=== PATIENT | female | born 1955 | race Caucasian/White ===

== ENCOUNTER → 2017-02-14 | Outpatient (CLI) | payer MEDICARE, OTHER ==
[2017-02-14 12:54] LABS: Basophils # (A) 0.1 k/uL (0-0.2); Basophils % (A) 1 %; CH 31.7; CHCM 33.3; Eosinophils # (A) 0.3 k/uL (0-0.7); Eosinophils % (A) 3 %; HDW 2.18; HGB 15.5 gm/dL (11.4-16.0); Luc # (Auto) 0.17; Luc % (Auto) 2; Lymphocytes # (A) 3.1 k/uL (1.0-4.8); Lymphocytes % (A) 34 %; MCH 31.6 pg (25.0-35.0); MCV 95.7 fL (80.0-100.0); Mean Platelet Volume 7.4; Monocytes # (A) 0.5 k/uL (0-1.0); Monocytes % (A) 5 %; Neutrophils # (A) 5.1 k/uL (1.3-7.7); Neutrophils % (A) 55 %; RBC 4.91 m/uL (3.80-5.40); RDW 12.5 % (11.5-15.5); WBC 9.2 k/uL (3.8-10.6); WBC (Perox) 8.54
[2017-02-14 13:13] LABS: ALT 27 U/L (9-52); AST 22 U/L (14-36); Alkaline Phosphatase 90 U/L (38-126); Anion Gap 9 mmol/L; Blood Urea Nitrogen 15 mg/dL (7-17); Calcium 9.6 mg/dL (8.4-10.2); Carbon Dioxide 28 mmol/L (22-30); Chloride 106 mmol/L (98-107); Glucose 82 mg/dL (74-99); Non-African American GFR(MDRD) >60 (>60 ml/min/1.73 sqM); Potassium 4.9 mmol/L (3.5-5.1); Sodium 143 mmol/L (137-145); Total Bilirubin 0.3 mg/dL (0.2-1.3); Total Protein 6.6 g/dL (6.3-8.2)
[2017-02-14 14:01] LABS: Vitamin B12 457 pg/mL (239-931)
== END | disposition home or self-care (01) ==
LOC: LABWHC1 11:48
PROVIDERS: ATTEND Psychiatry & Neurology Neurology
DX: E55.9 Vitamin D deficiency, unspecified (principal); G35 Multiple sclerosis
CPT/HCPCS: 36415; 80053; 82306; 82607; 84207; 84439; 84443; 84481; 85025

== ENCOUNTER → 2017-02-24 | Outpatient (CLI) | payer MEDICARE, OTHER ==
--- NOTE | 2017-02-24 13:38 | CT ---
EXAMINATION TYPE: CT brain wo/w con DATE OF EXAM: 02/24/2017 COMPARISON: CT brain March 31, 2015. HISTORY: Multiple Sclerosis flareup. CT DLP: 1941 mGycm Automated exposure control for dose reduction was used. CONTRAST: CT scan of the head is performed without and with IV Contrast, patient injected with 100 mL of Omnipa que 300. FINDINGS: Noncontrast images show no acute intracranial hemorrhage or midline shift.. Ventricles and sulci are within normal limits in size. Areas of vague low attenuation scattered throughout the white matter bilaterally are redemonstrated and felt slightly more prominent than prior exam. Postcontrast images show no definite areas of abnormal enhancement. The globes are intact and the visualized sinu ses are clear. IMPRESSION: Mild to moderate nonspecific white matter changes felt more prominent versus prior exam. No definitiv e enhancing lesions seen. Limitations of CT evaluation versus MRI are noted.
== END | disposition home or self-care (01) ==
LOC: RADCTMAIN 12:45
PROVIDERS: ATTEND Psychiatry & Neurology Neurology
DX: R90.82 White matter disease, unspecified (principal)
CPT/HCPCS: 70470; Q9967

== ENCOUNTER 2017-12-21 09:37 | Day surgery (SDC) | payer MEDICARE ==
[2017-12-18 14:51] VITALS: BMI 25.0
[~2017-12-21 09:37] MED LIST: LACTATED RINGERS 1,000 ML IV SCH
[2017-12-21 10:07] VITALS: RESP 16; TEMP 97.5
[2017-12-21 10:29] LABS: Glucose,Whole Blood 96 mg/dL (75-99)
[2017-12-21] MEDS ORDERED: PROPOFOL 10 MG/ML 20 ML VIAL IV ONE (10:34)
[2017-12-21] MEDS ORDERED: LIDOCAINE 1% INJ 10MG/ML (20 ML MDV) ONE (10:34)
--- NOTE | 2017-12-21 10:53 | P.PCN ---
Date of Procedure: 12/21/17 Procedure(s) Performed: BRIEF HISTORY: Patient is a 62-year-old pleasant white female scheduled for an elective colonoscopy as a part of screening for colorectal neoplasia. PROCEDURE PERFORMED: Colonoscopy. PREOPERATIVE DIAGNOSIS: Screening For colon cancer. IV sedation per Anesthesia. PROCEDURE: After informed consent was obtained, the patient, was brought into the endoscopy unit. IV sedation was administered by Anesthesia under continuous monitoring. Digital rectal examination was normal. Initially the Olympus CF- 160 flexible video colonoscope was then inserted in the rectum, gradually advanced into the cecum without any difficulty. Careful examination was performed as the scope was gradually being withdrawn. Ileocecal valve and the appendiceal orifice were visualized and appeared normal. Prep was excellent. Mucosa of the cecum, ascending colon, transverse colon, descending colon, sigmoid colon, and rectum appeared normal. Retroflexion was performed in the rectum and no lesions were seen. The patient tolerated the procedure well. IMPRESSION: Normal-appearing colon from rectum to cecum with no evidence of colorectal neoplasia. RECOMMENDATIONS: Findings of this examination were discussed with the patient as well as her family. She was advised to have a repeat screening colonoscopy in 10 years.
[2017-12-21 11:20] VITALS: BP 121/73; PULSE 64
== END 2017-12-21 11:29 | disposition home or self-care (01) ==
LOC: ORWHC2ENDO 09:37
PROVIDERS: ATTEND Internal Medicine Gastroenterology
DX: Z12.11 Encounter for screening for malignant neoplasm of colon (principal); G47.33 Obstructive sleep apnea (adult) (pediatric); Z99.89 Dependence on other enabling machines and devices; R56.9 Unspecified convulsions; G35 Multiple sclerosis; R13.10 Dysphagia, unspecified; K21.9 Gastro-esophageal reflux disease without esophagitis; G43.909 Migraine, unspecified, not intractable, without status migrainosus; F32.9 Major depressive disorder, single episode, unspecified; M79.7 Fibromyalgia; Z79.891 Long term (current) use of opiate analgesic; Z79.1 Long term (current) use of non-steroidal anti-inflammatories (NSAID); Z79.899 Other long term (current) drug therapy; F17.210 Nicotine dependence, cigarettes, uncomplicated
CPT/HCPCS: J2001; J2704; G0121

== ENCOUNTER 2018-07-07 07:40 | Emergency (ER) | payer MEDICARE ==
[2018-07-07 07:45] VITALS: BP 139/73; PULSE 72; RESP 18
[2018-07-07] MEDS ORDERED: HYDROcodone/APAP 10-325MG 1 EACH TAB PO ONE (08:02)
[2018-07-07 08:05] VITALS: TEMP 97.6
--- NOTE | 2018-07-07 08:05 | ED ---
Fall HPI - General Chief Complaint: Fall Stated Complaint: FALL, POSS RT SHOULDER DISLOCATION Time Seen by Provider: 07/07/18 07:57 Source: patient, RN notes reviewed Mode of arrival: wheelchair Limitations: no limitations - History of Present Illness Initial Comments: This a 63-year-old female presents emergency Department chief complaint right shoulder pain. Patient states that she was walking towards her back door and states that there is a ledge and states that she caught her left foot on the ledge falling forward primarily striking her right shoulder. She states she did fall set in her left knee but has no pain. She states she has falls a lot secondary to her MS and states that she has chronic weakness on the left side. Patient states she had a recent right wrist fracture and which she is an S1 4. Patient denies any head, neck injury no loss conscious. Patient states that her only pain right now a right shoulder. - Related Data Home Medications Medication Instructions Recorded Confirmed rOPINIRole HCL [Requip] 1 mg PO HS 02/14/17 12/21/17 Cetirizine HCl [Zyrtec] 5 mg PO DAILY PRN 02/15/17 12/18/17 Cholecalciferol [Vitamin D3] 2,000 units PO DAILY 02/15/17 12/18/17 Naproxen 500 mg PO BID PRN 02/15/17 12/21/17 Gabapentin 800 mg PO TID 06/22/17 12/18/17 Multivitamins, Thera [Multivitamin 1 tab PO DAILY 06/22/17 12/18/17 (formulary)] Venlafaxine HCl [Effexor XR] 75 mg PO DAILY 06/22/17 12/18/17 Venlafaxine HCl [Effexor XR] 150 mg PO DAILY 06/22/17 12/18/17 Fiorcet(Dose Unknown) 1 tab PO QID PRN 12/18/17 12/21/17 Hydrocodone/Acetaminophen [Prichard 1 tab PO QID PRN 12/18/17 12/18/17 7.5-325] Meclizine [Antivert] 12.5 mg PO TID PRN 12/18/17 12/21/17 Allergies Allergy/AdvReac Type Severity Reaction Status Date / Time No Known Allergies Allergy Verified 07/07/18 07:45 Review of Systems ROS Statement: Those systems with pertinent positive or pertinent negative responses have been documented in the HPI. ROS Other: All systems not noted in ROS Statement are negative. Past Medical History Past Medical History: Fibromyalgia, GERD/Reflux, Neurologic Disorder, Seizure Disorder, Sleep Apnea/CPAP/BIPAP Additional Past Medical History / Comment(s): Multiple sclerosis, some dysphagia at times, incontinent or urine/bowels at times, generalized nerve pain , migraines, spinal stenosis,dx colitis at age 15 yrs, fractured ribs and T12 fracture 2 yrs ago from falling, frequent falls, hypoglycemia. 4 arm cane and wheelchair, no cpap used, willy leos History of Any Multi-Drug Resistant Organisms: None Reported Past Surgical History: Appendectomy, Back Surgery, Cholecystectomy, Hysterectomy Additional Past Surgical History / Comment(s): spinal cord stimulator surgically placed in December 2012, laproscopic surgery for fibroids, Past Anesthesia/Blood Transfusion Reactions: Previous Problems w/ Anesthesia, Motion Sickness Additional Past Anesthesia/Blood Transfusion Reaction / Comment(s): "hard to wake up and my blood pressure gets very low" Past Psychological History: Depression Smoking Status: Current every day smoker Past Alcohol Use History: Rare Past Drug Use History: None Reported - Past Family History Father Family Medical History: Cancer Brother(s) Family Medical History: Cancer General Exam Limitations: no limitations General appearance: alert, in no apparent distress Head exam: Present: atraumatic, normocephalic, normal inspection Eye exam: Present: normal appearance, PERRL, EOMI. Absent: scleral icterus, conjunctival injection, periorbital swelling ENT exam: Present: normal exam, normal oropharynx, mucous membranes moist Neck exam: Present: normal inspection, full ROM. Absent: tenderness, meningismus, lymphadenopathy Respiratory exam: Present: normal lung sounds bilaterally. Absent: respiratory distress, wheezes, rales, rhonchi, stridor, chest wall tenderness Cardiovascular Exam: Present: regular rate, normal rhythm, normal heart sounds. Absent: systolic murmur, diastolic murmur, rubs, gallop, clicks Extremities exam: Present: other (Right shoulder patient has diffuse tenderness no obvious deformity no ecchymosis neurovascular intact limited range of motion secondary to pain) Psychiatric exam: Present: normal affect, normal mood Skin exam: Present: warm, dry, intact, normal color. Absent: rash Course Vital Signs 07/07/18 07:41 Temperature 97.6 F Pulse Rate 72 Respiratory 18 Rate Blood Pressure 139/73 O2 Sat by Pulse 98 Oximetry - Reevaluation(s) Reevaluation #1: 07/07/18 08:16 Patient updated on x-ray results was offered IM pain meds patient declines oral was ordered though patient states that she had attempted pain medications morning. Medical Decision Making - Medical Decision Making 63-year-old female presents emergency from for right shoulder injury. Patient has a fracture of the humeral head. Patient we sling and follow-up with Dr. Patel as he currently sees her as a patient. Return parameters were discussed. Neurovascular intact. Disposition Clinical Impression: Fall, Right humeral fracture Disposition: HOME SELF-CARE Condition: Stable Instructions: Proximal Humerus Fracture (ED) Additional Instructions: Please return to the Emergency Department if symptoms worsen or any other concerns. Is patient prescribed a controlled substance at d/c from ED?: No Referrals: Saji Mclain DO [Primary Care Provider] - 1-2 days Saji Patel DO [Doctor of Osteopathic Medicine] - 1-2 days Time of Disposition: 08:18
--- NOTE | 2018-07-07 08:21 | XR ---
EXAMINATION TYPE: XR shoulder complete RT , 3 VIEWS DATE OF EXAM ORDERED: 07/07/2018 HISTORY: Pain. COMPARISON: None. FINDINGS: There is a mildly displaced fracture the greater tuberosity. There appears to be an anteri or dislocation. There are hypertrophic changes in the right AC joint. A pain stimulator projects over the dorsal spine. IMPRESSION: MILDLY DISPLACED FRACTURE DISLOCATION OF THE RIGHT SHOULDER. CODE A: INITIAL ENCOUNTER FOR CLOSED FRACTURE.
[2018-07-07] MEDS ORDERED: MORPHINE SULFATE 4 MG/ML SYRINGE IM STA (08:27)
== END 2018-07-07 08:40 | disposition home or self-care (01) ==
LOC: EC 07:40
DX: S42.91XA Fracture of right shoulder girdle, part unspecified, initial encounter for closed fracture (principal); G47.30 Sleep apnea, unspecified; F32.9 Major depressive disorder, single episode, unspecified; F17.200 Nicotine dependence, unspecified, uncomplicated; Z79.899 Other long term (current) drug therapy; W18.09XA Striking against other object with subsequent fall, initial encounter; Y93.01 Activity, walking, marching and hiking
CPT/HCPCS: 73030; 99283; 96372; L3670; J2270

== ENCOUNTER → 2019-01-28 | Outpatient (CLI) | payer MEDICARE ==
[2019-01-28 17:16] LABS: Blood Urea Nitrogen 16 mg/dL (7-17)
--- NOTE | 2019-01-28 20:20 | CT ---
EXAMINATION TYPE: CT brain wo/w con DATE OF EXAM: 01/28/2019 COMPARISON: 06/22/2017 HISTORY: 64-year-old female with headache and history of multiple sclerosis TECHNIQUE: Examination was done in axial plane before and after administration of 100 mL Isovue-300 intravenous contrast. Coronal and sagittal reconstructions performed. CT DLP: 2112.71 mGycm Automated exposure control for dose reduction was used. FINDINGS: There is no evidence of acute intracranial hemorrhage, acute ischemic changes, mass, mass-effect, or extra-axial fluid collection. There is no effacement of cerebral sulci or basal subarachnoid cister ns. There is no hydrocephalus. There is no midline shift. Young-white matter distinction is preserv ed. Mild subcortical and periventricular white matter hypodensities are unchanged. No enhancing intracran ial lesions are identified. Dural venous sinuses are patent. Paranasal sinuses and mastoid air cells well pneumatized. Orbits and globes are intact. IMPRESSION: Stable mild subcortical and periventricular white matter hypodensities likely in keeping with the pat ient's MS. If the patient is able, MRI would provide more sensitive evaluation. No enhancing intracra nial lesions or acute intracranial abnormality seen.
--- NOTE | 2019-01-28 20:27 | CT ---
EXAMINATION TYPE: CT cervical spine wo/w con DATE OF EXAM: 01/28/2019 COMPARISON: 04/07/2014 HISTORY: 59-year-old female headache, cervicalgia, history of multiple sclerosis TECHNIQUE: Contiguous axial scanning of the cervical spine performed without and with IV Contrast, pa tient injected with 100 mL of Isovue 300. Coronal/sagittal reconstructions performed. CT DLP: 733.15 mGycm Automated exposure control for dose reduction was used. FINDINGS: The craniocervical junction abnormality, predental space widening, or prevertebral soft tissue swelli ng. Grade 1 anterolisthesis at C4-C5 and C6-C7 with scattered facet and uncovertebral joint arthropathy. Anterolistheses are new/progressed from 2013. Moderate degenerative disc disease at C5-C6 with loss of disc height. Disc osteophyte complex at C5-C6 causes similar moderate narrowing of the spinal canal. At C3-C4, there is mild bilateral neuroforaminal narrowing. At C4-C5, there is [id number] right neuroforaminal narrowing. At C5-C6, there is moderate bilateral neural foraminal stenosis. At C6-C7, there is mild to moderate left and mild right neuroforaminal stenosis. At C7-T1, there is moderate right neuroforaminal stenosis. IMPRESSION: 1. MODERATE DEGENERATIVE DISC DISEASE AT C5-C6 WITH DISC OSTEOPHYTE COMPLEX CAUSING SIMILAR MODERATE SPINAL CANAL STENOSIS AT THIS LEVEL. 2. MULTILEVEL UNCOVERTEBRAL JOINT AND FACET ARTHROPATHY. THERE ARE DEGENERATIVE GRADE 1 ANTEROLISTHES ES AT C4-C5 AND C6-C7, NEW/PROGRESSED FROM 2013. 3. VARIABLE MILD AND MODERATE NEURAL FORAMINAL STENOSES OUTLINED ABOVE.
== END | disposition home or self-care (01) ==
LOC: RADCTMAIN 16:34
PROVIDERS: ATTEND Psychiatry & Neurology Neurology
DX: G35 Multiple sclerosis (principal); R90.82 White matter disease, unspecified; M48.02 Spinal stenosis, cervical region; M43.12 Spondylolisthesis, cervical region; M50.322 Other cervical disc degeneration at C5-C6 level; M46.92 Unspecified inflammatory spondylopathy, cervical region
CPT/HCPCS: 82565; 84520; 72127; 70470; 36415; Q9967

== ENCOUNTER → 2019-04-12 | Outpatient (CLI) | payer MEDICARE ==
--- NOTE | 2019-04-12 13:22 | CT ---
EXAMINATION TYPE: CT lumbar spine wo con DATE OF EXAM: 04/12/2019 COMPARISON: None HISTORY: Lumbago Unenhanced CT of the lumbar spine was performed. Bone and soft tissue window settings are submitted as well as coronal and sagittal reconstructions. L1-L2: Normal disc space height. No disc herniation protrusion or central stenosis. No facet joint arthropathy. No evidence for foraminal encroachment. L2-L3: Normal disc space height. No disc herniation protrusion or central stenosis. No facet joint arthropathy. No evidence for foraminal encroachment. L3-L4: Normal disc space height. No disc herniation protrusion or central stenosis. No facet joint arthropathy. No evidence for foraminal encroachment. L4-L5: Severe degenerative disc space narrowing with vacuum disc. Grade 1 anterolisthesis L4 and L5 m easuring 4 mm. Posterior disc bulge with moderate central stenosis. Bilateral foraminal encroachment noted. L5-S1: Moderate degenerative disc space narrowing. Posterior disc bulge. No evidence for herniation o r protrusion. No central stenosis. Suspect right lateral recess stenosis. No paraspinal masses are identified. Lumbar segments are free of fracture. IMPRESSION: 1. Degenerative disc disease L4-5 and L5-S1. 2. Central stenosis L4-5. Right lateral recess stenosis L5-S1.
== END | disposition home or self-care (01) ==
LOC: RADCTMAIN 12:50
PROVIDERS: ATTEND Psychiatry & Neurology Neurology
DX: M48.07 Spinal stenosis, lumbosacral region (principal); M48.061 Spinal stenosis, lumbar region without neurogenic claudication; M51.36 Other intervertebral disc degeneration, lumbar region; M51.37 Other intervertebral disc degeneration, lumbosacral region
CPT/HCPCS: 72131

== ENCOUNTER → 2019-05-07 | Outpatient (CLI) | payer MEDICARE ==
--- NOTE | 2019-05-09 09:48 | MM ---
Reason for exam: screening (asymptomatic). History: Patient is postmenopausal. Excisional biopsy of the left breast, 2003. Physical Findings: A clinical breast exam by your physician is recommended on an annual basis and results should be correlated with mammographic findings. MG 3D Screening Mammo W/Cad Bilateral CC and MLO view(s) were taken. No prior studies available for comparison. There are scattered fibroglandular densities. There is no discrete abnormality. ASSESSMENT: Benign, BI-RAD 2 RECOMMENDATION: Routine screening mammogram of both breasts in 1 year.
--- NOTE | 2019-05-10 17:31 | BD ---
EXAMINATION TYPE: Axial Bone Density DATE OF EXAM: 05/07/2019 COMPARISON: NONE CLINICAL HISTORY: screening Height: 5'4 Weight: 154 FRAX RISK QUESTIONS: History of Fracture in Adulthood: y Secondary Osteoporosis: 3. Menopause before 45: y Current Tobacco Use: y RISK FACTORS HISTORY OF: Active: n Postmenopausal woman: y Frequent falls: y Poor Health: y MEDICATIONS: Additional Medications: neuro tin, MS meds Additional History: pt has MS EXAM MEASUREMENTS: Bone mineral densitometry was performed using the [employer] SPINE System. Bone mineral density as measured about the Lumbar spine is: ----- L1-L4(G/cm2): 1.065 T Score Values are as follows: ----- L2: -2.0 ----- L3: -0.2 ----- L4: -0.3 ----- L1-L4: -1.0 Bone mineral density about the R hip (g/cm2): 0.704 Bone mineral density about the L hip (g/cm2): 0.638 T Score values are as follows: -----R Neck: -2.4 -----L Neck: -2.9 -----R Total: -1.7 -----L Total: -1.7 IMPRESSION: Osteoporosis (T Score less than -2.5). There is increased fracture risk and therapy is usually indicated based on age. Re-Screen 1-2 years. NOTE: T-SCORE=SD OF THE YOUNG ADULT MEAN.
== END | disposition home or self-care (01) ==
LOC: RADMAMWWP 15:52
PROVIDERS: ATTEND Family Medicine
DX: Z12.31 Encounter for screening mammogram for malignant neoplasm of breast (principal); M81.0 Age-related osteoporosis without current pathological fracture
CPT/HCPCS: 77063; 77067; 77080

== ENCOUNTER → 2020-01-16 | Outpatient (CLI) | payer MEDICARE, OTHER ==
--- NOTE | 2020-01-16 12:55 | XR ---
EXAMINATION TYPE: XR lumbosacral spine min 4V DATE OF EXAM: 01/16/2020 CLINICAL HISTORY: Low back pain, repeated falls. TECHNIQUE: Frontal, lateral, and oblique images of the lumbar spine are obtained. COMPARISON: CT lumbar spine April 12, 2019 FINDINGS: There are 5 lumbar type vertebral bodies redemonstrated persistent slight dextroconvex sco liosis centered L5 level. Persistent grade 1 anterolisthesis L4 on L5 with moderate to severe disc sp fide narrowing along with vacuum disc phenomenon and endplate sclerosis anteriorly. Some prominent Anshu morl nodes involving the anterior superior L2 and L3 endplates. Mild height loss involving superior T 12 endplate redemonstrated. Facet arthropathy lower lumbar spine. Oblique images within normal limits though lower lumbar spine obscured by overlying device on one projection. Cholecystectomy clips are redemonstrated. IMPRESSION: As above
== END | disposition home or self-care (01) ==
LOC: RADXRYALE 11:36
PROVIDERS: ATTEND Physician Assistant Medical
DX: M43.16 Spondylolisthesis, lumbar region (principal); M99.73 Connective tissue and disc stenosis of intervertebral foramina of lumbar region; M46.96 Unspecified inflammatory spondylopathy, lumbar region; M41.86 Other forms of scoliosis, lumbar region; Z96.89 Presence of other specified functional implants
CPT/HCPCS: 72110

== ENCOUNTER → 2020-01-20 | Outpatient (CLI) | payer MEDICARE, OTHER ==
--- NOTE | 2020-01-20 13:25 | US ---
EXAMINATION TYPE: US venous doppler duplex LE DATE OF EXAM: 01/20/2020 12:53 PM COMPARISON: NONE CLINICAL HISTORY: R60.9 edema, R06.02 shortness of breath. Edema bilateral legs SIDE PERFORMED: Bilateral TECHNIQUE: The lower extremity deep venous system is examined utilizing real time linear array sonog gigi with graded compression, doppler sonography and color-flow sonography. VESSELS IMAGED: External Iliac Vein (EIV) Common Femoral Vein Deep Femoral Vein Greater Saphenous Vein * Femoral Vein Popliteal Vein Small Saphenous Vein * Proximal Calf Veins (* superficial vessels) Grayscale, color doppler, spectral doppler imaging performed of the deep veins of the lower extremiti es. There is normal flow, compressibility, vascular waveforms. Right Leg: No evidence of DVT Left Leg: No evidence of DVT IMPRESSION: No sonographic evidence of deep venous thrombosis in the visualized bilateral lower extr emities.
--- NOTE | 2020-01-21 09:41 | ECHOF ---
Referral Reason:R60.9 edema, R06.02 shortness of breath MEASUREMENTS -------- HEIGHT: 165.1 cm WEIGHT: 72.6 kg BP: 140/80 RVIDd: 3.1 cm (< 3.3) IVSd: 1.1 cm (0.6 - 1.1) LVIDd: 3.5 cm (3.9 - 5.3) LVPWd: 1.0 cm (0.6 - 1.1) IVSs: 1.6 cm LVIDs: 2.4 cm LVPWs: 1.4 cm LA Diam: 3.1 cm (2.7 - 3.8) LAESV Index (A-L): 19.29 ml/m Ao Diam: 2.6 cm (2.0 - 3.7) AV Cusp: 2.1 cm (1.5 - 2.6) MV EXCURSION: 14.273 mm (> 18.000) MV EF SLOPE: 99 mm/s (70 - 150) EPSS: 0.6 cm MV E Toni: 0.83 m/s MV DecT: 218 ms MV A Toni: 0.69 m/s MV E/A Ratio: 1.21 TAPSE: 14.64 mm FINDINGS -------- Sinus rhythm. This was a technically good study. The left ventricular size is normal. There is borderline concentric left ventricular hypertrophy. Overall left ventricular systolic function is normal with, an EF between 60 - 65 %. The right ventricle is normal in size. The right atrium is normal in size. Interatrial and interventricular septum intact. The aortic valve is trileaflet and appears structurally normal. There is trace mitral regurgitation. Trace tricuspid regurgitation present. Trace/mild (physiologic) pulmonic regurgitation. The aortic root size is normal. Normal inferior vena cava with normal inspiratory collapse consistent with estimated right atrial pre ssure of 5 mmHg. There is no pericardial effusion. CONCLUSIONS -------- 1. Sinus rhythm. 2. This was a technically good study. 3. The left ventricular size is normal. 4. There is borderline concentric left ventricular hypertrophy. 5. Overall left ventricular systolic function is normal with, an EF between 60 - 65 %. 6. The right ventricle is normal in size. 7. The right atrium is normal in size. 8. Interatrial and interventricular septum intact. 9. The aortic valve is trileaflet and appears structurally normal. 10. There is trace mitral regurgitation. 11. Trace tricuspid regurgitation present. 12. Trace/mild (physiologic) pulmonic regurgitation. 13. The aortic root size is normal. 14. Normal inferior vena cava with normal inspiratory collapse consistent with estimated right atrial pressure of 5 mmHg. 15. There is no pericardial effusion. W[employer]ING LOOM SETTER: Christine Elizalde RDCS
== END | disposition home or self-care (01) ==
LOC: RADUSWWP 11:24
PROVIDERS: ATTEND Physician Assistant Medical
DX: R60.9 Edema, unspecified (principal); I09.89 Other specified rheumatic heart diseases
CPT/HCPCS: 93306; 93970

== ENCOUNTER → 2022-10-12 | Outpatient (CLI) | payer MEDICARE ==
--- NOTE | 2022-10-12 14:13 | BD ---
EXAMINATION TYPE: Axial Bone Density DATE OF EXAM: 10/12/2022 COMPARISON: 05.07.2019 CLINICAL HISTORY: 67 years year old Female. ICD-10 CODE: [id number] oth disorder of bone density/structu re Height: 62 Weight: 173 FRAX RISK QUESTIONS: Family History (Parent hip fracture): YES Glucocorticoids (More than 3mos): YES (Ex: prednisone, prednisolone, methylprednisolone, dexamethasone, and hydrocortisone). History of Fracture in Adulthood: YES Secondary Osteoporosis: YES 3. Menopause before 45: YES Rheumatoid Arthritis: YES Current Tobacco Use: YES RISK FACTORS HISTORY OF: RT HAND, AND RT SHOULDR AN ADULT Surgery to Spine FOR NERVE, IMPLANT WITH WIRES, PT HAS MS Family History of Osteoporosis: YES, WITH FXs Active: NO....IN W/C Postmenopausal woman: YES, AT 41 YRS OLD, TOTAL HYST Take estrogen and/or progesterone medications: YES, SHORT TIME IN THE PAST Lost more than 2 inches in height since high school: YES Frequent falls: YES Poor Health: YES Hyperparathyroidism: NO Adrenal Insufficiency: NO MEDICATIONS: Prednisone or other steroids: YES How Long: MANY YRS Osteoporosis Medications: TRIED IN THE PAST Additional Medications: EFFEXOR, XANAX, REFLUX MEDS, CHOLESTEROL MEDS, PAIN MEDS, VIT D AND CALCIUM.. .MORPHINE IMPLANT PUMP Additional History: MS, ANXIETY, CHOLESTEROL, POOR HEALTH, GERD, CHRONIC PAIN, EXAM MEASUREMENTS: Bone mineral densitometry was performed using the [employer] System. Bone mineral density about the R hip (g/cm2): 0.839 Bone mineral density about the L hip (g/cm2): 0.825 T Score values are as follows: -----R Neck: -1.8 -----L Neck: -2.9 -----R Total: -1.3 -----L Total: -1.4 Bone mineral density has: Increased 5.2% SINCE: 05.07.2019 Bone mineral density about the L Wrist (g/cm2): 0.420 T Score values are as follows: -----Dist. R+U: -4.2 -----Prox. R+U: -2.8 -----Radius total: -4.3 Bone mineral density FIRST FOREARM SCAN FRAX%s: The graph provided illustrates a 59.5% for a major osteoporotic fx and a 33.6% for the hips p robability for fx in 10 years time. IMPRESSION: Osteoporosis (T Score less than -2.5). There is increased fracture risk and therapy is usually indicated based on age. Re-Screen 1-2 years. NOTE: T-SCORE=SD OF THE YOUNG ADULT MEAN.
== END | disposition home or self-care (01) ==
LOC: RADBDWWP 10:07
PROVIDERS: ATTEND Family Medicine
DX: M81.0 Age-related osteoporosis without current pathological fracture (principal); M85.89 Other specified disorders of bone density and structure, multiple sites; Z78.0 Asymptomatic menopausal state
CPT/HCPCS: 77080

== ENCOUNTER → 2022-10-12 | Outpatient (CLI) | payer MEDICARE ==
--- NOTE | 2022-10-12 15:44 | FL ---
EXAMINATION TYPE: FL barium swallow w video DATE OF EXAM: 10/12/2022 COMPARISON: NONE HISTORY: Dysphasia TECHNIQUE: Fluoroscopy. FINDINGS: Fluoroscopic guidance was provided for the procedure performed in conjunction with the [facility] pathology department. Please see complete report forthcoming from the Speech Pathology departmen t. Various consistencies from thin liquid to solids were administered. Fluoroscopy time not recorded Number of images: 0. No aspiration or penetration was evident. No significant pooling was observed in the vallecula. There was normal propulsion of the bolus. IMPRESSION: 1. Unremarkable modified barium swallow.
== END | disposition home or self-care (01) ==
LOC: RADFLMAIN 10:35
PROVIDERS: ATTEND Psychiatry & Neurology Neurology
DX: R13.10 Dysphagia, unspecified (principal)
CPT/HCPCS: 74230

== ENCOUNTER → 2023-06-21 | Day surgery (SDC) | payer MEDICARE ==
[2023-06-19 09:55] VITALS: BMI 29.1
[~2023-06-21] MED LIST changes: +LIDOCAINE 2% INJ 20 MG/ML (2 ML VIAL) ONE; +PROPOFOL 10 MG/ML 20 ML VIAL IV ONE
[2023-06-21 08:00] VITALS: RESP 16; TEMP 97.1
[2023-06-21 08:15] LABS: Glucose,Whole Blood 108 mg/dL (70-110)
--- NOTE | 2023-06-21 09:25 | P.PCN ---
Date of Procedure: 06/21/23 Procedure(s) Performed: BRIEF HISTORY: Patient is a 68-year-old, pleasant, white female scheduled for an upper endoscopy as a part of evaluation of GERD and intermittent dysphagia to solids.. PROCEDURE PERFORMED: Esophagogastroduodenoscopy. PREOPERATIVE DIAGNOSIS: GERD and intermittent dysphagia to solids. IV sedation per anesthesia. PROCEDURE: After informed consent was obtained, the patient was brought into the endoscopy unit. IV sedation was administered by Anesthesia under continuous monitoring. Initially the Olympus GIF-140 video endoscope was inserted into the mouth. Esophagus intubated without any difficulty. It was gradually advanced into the stomach and duodenum and carefully examined. The bulb and the second part of the duodenum appeared normal. The scope at this time was withdrawn to the stomach, adequately insufflated with air, and upon careful examination, mucosa of the antrum, body, cardia and the fundus appeared normal. There was moderate amount of retained solid food in the stomach suggestive of gastroparesis. There was no gastric outlet obstruction. The scope was then withdrawn into the esophagus. Small to moderate size hiatal hernia noted. The GE junction was located at 32 cm from the incisors. The esophagus appeared normal. There were no erosions or ulcerations seen, no evidence of esophageal stricture and the patient tolerated the procedure well. IMPRESSION: 1. Small hiatal hernia, and but no evidence of esophageal stricture. 2. With retained food in the stomach suggestive of gastroparesis. RECOMMENDATIONS: The findings of this examination were discussed with the patient as well as her family. She was advised to increase omeprazole to 20 mg twice daily and follow antireflux measures. Recommend small frequent meals. Advised to follow up in office if she has worsening symptoms..
[2023-06-21 09:46] VITALS: BP 114/70; PULSE 72
== END ==
LOC: ORWHC2ENDO 07:37
PROVIDERS: ATTEND Internal Medicine Gastroenterology
DX: K44.9 Diaphragmatic hernia without obstruction or gangrene (principal); K21.9 Gastro-esophageal reflux disease without esophagitis; G35 Multiple sclerosis; F17.210 Nicotine dependence, cigarettes, uncomplicated; G40.909 Epilepsy, unspecified, not intractable, without status epilepticus; Z86.711 Personal history of pulmonary embolism; Z79.83 Long term (current) use of bisphosphonates; Z79.01 Long term (current) use of anticoagulants; Z90.49 Acquired absence of other specified parts of digestive tract; Z98.890 Other specified postprocedural states; Z79.899 Other long term (current) drug therapy
CPT/HCPCS: 43235; J2704; J2001

== ENCOUNTER 2024-07-07 07:21 | Observation (INO) | payer MEDICARE ==
--- NOTE | 2024-07-07 07:51 | ED ---
General Adult HPI - General Source: patient, RN notes reviewed Mode of arrival: ambulatory Limitations: no limitations <Rachell Mar - Last Filed: 07/07/24 07:50> <Brielle Marcus - Last Filed: 07/07/24 17:16> - General Chief complaint: Shortness of Breath Stated complaint: bleeding from throat Time Seen by Provider: 07/07/24 07:38 - History of Present Illness Initial comments: 69-year-old female with history of pulmonary embolism on Xarelto presents emergency department chief complaint of "spitting up blood "that started this morning. She denies hematemesis or hemoptysis. States that she has been having a worsening cough for the past few months because she has coughed up a chicken bone. She is also experiencing chest pain and shortness of breath. (Rachell Mar) 69-year-old female presents emergency department reporting hemoptysis. States that for the past 3 weeks she has had a cough with blood streaking. She reports that it started after she coughed up a chicken bone that she choked on. She admits to shortness of breath. Patient does take Xarelto for history of PE. S he was seen in [facility] emergency department 2 weeks ago for this complaint. She was told that everything was normal. She continues to have the symptoms. states this morning she coughed up a fairly large blood clot. She admits to bilateral calf pain and swelling. Denies chest pain. Patient does not wear oxygen at home. Found to be hypoxic in the emergency department at 83%. She denies fevers. Does admit to a history of peptic ulcers but states that this was 40 years ago. She denies any black or bloody stools. Admits to constipation. No vomiting. No epistaxis. No other alleviating, precipitating modifying factors. HPI is notably different from what was reported during the quick evaluation of the patient completed by the midlevel provider (Brielle Marcus) - Related Data Home Medications Medication Instructions Recorded Confirmed Multivitamins, Thera [Multivitamin 1 tab PO DAILY 06/22/17 07/07/24 (formulary)] Dalfampridine [Dalfampridine ER] 10 mg PO Q12H 06/19/23 07/07/24 Fenofibrate,Micronized 134 mg PO DAILY 06/19/23 07/07/24 [Fenofibrate] Furosemide [Lasix] 20 - 40 mg PO DAILY PRN 06/19/23 07/07/24 Rivaroxaban [Xarelto] 20 mg PO W/SUPPER 06/19/23 07/07/24 Albuterol Inhaler [Ventolin Hfa 2 puff INHALATION RT-Q6H PRN 07/07/24 07/07/24 Inhaler] Amitriptyline HCl [Elavil] 25 mg PO HS 07/07/24 07/07/24 Butalb/APAP/Caff 50-325-40Mg 1 tab PO Q8H PRN 07/07/24 07/07/24 [Fioricet 50-325-40] Esomeprazole Magnesium [NexIUM] 40 mg PO BID 07/07/24 07/07/24 Gabapentin 300 mg PO TID 07/07/24 07/07/24 Ibuprofen [Motrin] 800 mg PO Q8H PRN 07/07/24 07/07/24 Metoclopramide [Reglan] 5 mg PO AC-TID 07/07/24 07/07/24 Nicotine 21Mg/24Hr Patch [Habitrol] 1 patch TRANSDERM DAILY 07/07/24 07/07/24 Ondansetron [Zofran] 4 - 8 mg PO Q8H PRN 07/07/24 07/07/24 Patient Own Pump 0 bag 07/07/24 rOPINIRole HCL 4 mg PO TID 07/07/24 07/07/24 traMADol HCL 50 mg PO BID PRN 07/07/24 07/07/24 Allergies Allergy/AdvReac Type Severity Reaction Status Date / Time No Known Allergies Allergy Verified 07/07/24 11:17 Review of Systems ROS Other: All systems not noted in ROS Statement are negative. <Rachell Mar - Last Filed: 07/07/24 07:50> ROS Other: All systems not noted in ROS Statement are negative. <Brielle Marcus - Last Filed: 07/07/24 17:16> ROS Statement: Those systems with pertinent positive or pertinent negative responses have been documented in the HPI. Past Medical History Past Medical History: Fibromyalgia, GERD/Reflux, Neurologic Disorder, Pulmonary Embolus (PE), Seizure Disorder, Sleep Apnea/CPAP/BIPAP Additional Past Medical History / Comment(s): Multiple sclerosis, some dysphagia at times, incontinent or urine/bowels at times, generalized nerve pain, migraines, spinal stenosis, dx colitis at age 15 yrs, frequent falls, hypog lycemia, chronic fatigue syndrome, last seizure around 2019 History of Any Multi-Drug Resistant Organisms: None Reported Past Surgical History: Appendectomy, Back Surgery, Cholecystectomy, Hysterectomy Additional Past Surgical History / Comment(s): spinal cord stimulator surgically placed in December 2012, morphine pain pump placed, laparoscopic surgery for fibroids Past Anesthesia/Blood Transfusion Reactions: Previous Problems w/ Anesthesia, Motion Sickness Additional Past Anesthesia/Blood Transfusion Reaction / Comment(s): "hard to wake up and my blood pressure gets very low" Past Psychological History: Depression Smoking Status: Current every day smoker Past Alcohol Use History: Rare Past Drug Use History: None Reported - Past Family History Father Family Medical History: Cancer Brother(s) Family Medical History: Cancer <Rachell Mar - Last Filed: 07/07/24 07:50> General Exam Limitations: no limitations <Rachell Mar - Last Filed: 07/07/24 07:50> General appearance: alert, in no apparent distress Head exam: Present: atraumatic, normocephalic, normal inspection Eye exam: Present: normal appearance, PERRL, EOMI. Absent: scleral icterus, conjunctival injection, periorbital swelling ENT exam: Present: normal exam, mucous membranes moist Neck exam: Present: normal inspection. Absent: tenderness, meningismus, lymphadenopathy Respiratory exam: Present: normal lung sounds bilaterally. Absent: respiratory distress, wheezes, rales, rhonchi, stridor Cardiovascular Exam: Present: regular rate, normal rhythm, normal heart sounds. Absent: systolic murmur, diastolic murmur, rubs, gallop, clicks GI/Abdominal exam: Present: soft, normal bowel sounds. Absent: distended, tenderness, guarding, rebound, rigid Extremities exam: Present: normal inspection, full ROM, normal capillary refill. Absent: tenderness, pedal edema, joint swelling, calf tenderness Back exam: Present: normal inspection Neurological exam: Present: alert, oriented X3, CN II-XII intact Psychiatric exam: Present: normal affect, normal mood Skin exam: Present: warm, dry, intact, normal color. Absent: rash <Damer,Brielle A - Last Filed: 07/07/24 17:16> - General Exam Comments Initial Comments: Visual Physical Exam Vital signs reviewed General: Well-appearing, nontoxic, no acute distress. Head: Normocephalic, atraumatic Eyes: PERRLA, EOMI ENT: Airway patent Chest: Nonlabored breathing Skin: No visual rash, normal skin tone Neuro: Alert and oriented 3 Musculoskeletal: No gross abnormalities (Rachell Mar) Course Vital Signs 07/07/24 07/07/24 07/07/24 07:24 10:25 12:11 Temperature 98.2 F Pulse Rate 99 91 Respiratory 18 16 18 Rate Blood Pressure 135/60 119/53 O2 Sat by Pulse 94 L 98 Oximetry 07/07/24 07/07/24 15:57 16:08 Temperature Pulse Rate 83 84 Respiratory Rate Blood Pressure O2 Sat by Pulse Oximetry Medical Decision Making <Rachell Mar - Last Filed: 07/07/24 07:50> - Lab Data Result diagrams: 07/07/24 08:39 07/07/24 08:39 <Brielle Marcus - Last Filed: 07/07/24 17:16> - Medical Decision Making I completed the quick note portion of this chart signed Rachell Mar PA-C (Rachell Mar) Was pt. sent in by a medical professional or institution ([facility], [employer] T[employer]ER [employer]IVER, urgent care, hospital, or shelter...) When possible be specific @ -No Did you speak to anyone other than the patient for history (EMS, parent, family, police, friend...)? What history was obtained from this source @ -With the patient's for history Did you review nursing and triage notes (agree or disagree)? Why? @ -I reviewed and agree with nursing and triage notes Were old charts reviewed (outside hosp., previous admission, EMS record, old EKG, old radiological studies, urgent care reports/EKG's, shelter records)? Report findings @ -No old charts were reviewed Differential Diagnosis (chest pain, altered mental status, abdominal pain women, abdominal pain men, vaginal bleeding, weakness, fever, dyspnea, syncope, head ache, dizziness, GI bleed, back pain, seizure, CVA, palpatations, mental health, musculoskeletal)? @ -Differential Dyspnea: Coronary syndrome, arrhythmia, tamponade, asthma, COPD, pulmonary embolism, pneumonia, pneumothorax, pulmonary effusion, anaphylaxis, diabetic ketoacidosis, flailed chest, pulmonary contusion, diaphragmatic rupture, anemia, neuromuscular, this is not meant to be an all-inclusive list. EKG interpreted by me (3pts min.). @ -yes and demonstrates sinus rhythm with a rate of 95. MD interval 141. QRS 79. QTc of 410. No acute ST segment elevations or depressions X-rays interpreted by me (1pt min.). @ -Yes and demonstrates no acute process CT interpreted by me (1pt min.). @ -Yes and does not demonstrate PE U/S interpreted by me (1pt. min.). @ -None done What testing was considered but not performed or refused? (CT, X-rays, U/S, labs)? Why? @ -None What meds were considered but not given or refused? Why? @ -None Did you discuss the management of the patient with other professionals (professionals i.e. , PA, [employer] T[employer]ER DRIVER, lab, RT, psych nurse, health and social care teacher, system developer associate manager, teacher, aoc director combat plans officer, renal case manager)? Give summary @ -Spoke with Dr. Mcknight for admission Was smoking cessation discussed for >3mins.? @ -No Was critical care preformed (if so, how long)? @ -No Were there social determinants of health that impacted care today? How? (Homelessness, low income, unemployed, alcoholism, drug addiction, transportation, low edu. Level, literacy, decrease access to med. care, senior living, rehab)? @ -No Was there de-escalation of care discussed even if they declined (Discuss DNR or withdrawal of care, Hospice)? DNR status @ -No What co-morbidities impacted this encounter? (DM, HTN, Smoking, COPD, CAD, Cancer, CVA, ARF, Chemo, Hep., AIDS, mental health diagnosis, sleep apnea, morbid obesity)? @ -History of pulmonary embolism on anticoagulation Was patient admitted / discharged? Hospital course, mention meds given and route, prescriptions, significant lab abnormalities, going to OR and other pertinent info. @ -Upon arrival patient seen and evaluated in room 20. Thorough history and physical exam was performed. Patient does have episodes of hypoxia and th erefore she is placed on 3 L. Lowest oxygen saturation was noted to be 83 percent. IV was established. Laboratory studies were conducted. Patient does go for CT as she has a history of a PE and is hypoxic. CT does not demonstrate a PE. I did discuss results with the patient. I feel that the patient should be evaluated by pulmonology and possibly by GI to determine source of bleed. Patient was agreeable to admission. Spoke with Dr. Mcknight. I will place Dr. Esteves and Dr. Sebastian on-call. Patient awaiting a bed on the floor in stable condition Undiagnosed new problem with uncertain prognosis? @ -Yes Drug Therapy requiring intensive monitoring for toxicity (Heparin, Nitro, Insulin, Cardizem)? @ -No Were any procedures done? @ -No Diagnosis/symptom? @ -Acute hemoptysis, acute hypoxic respiratory failure, history of PE, anemia Acute, or Chronic, or Acute on Chronic? @ -Acute Uncomplicated (without systemic symptoms) or Complicated (systemic symptoms)? @ -Complicated Side effects of treatment? @ -No Exacerbation, Progression, or Severe Exacerbation? @ -No Poses a threat to life or bodily function? How? (Chest pain, USA, NM, pneumonia, PE, COPD, DKA, ARF, appy, cholecystitis, CVA, Diverticulitis, Homicidal, Suicidal, threat to staff... and all critical care pts) @ -No (Brielle Marcus) - Lab Data Lab Results 07/07/24 07/07/24 07/07/24 Range/Units 08:39 08:39 08:39 WBC 11.3 H (3.8-10.6) k/uL RBC 3.38 L (3.80-5.40) m/uL Hgb 7.8 L (11.4-16.0) gm/dL Hct 26.0 L (34.0-46.0) % MCV 76.9 L (80.0-100.0) fL MCH 23.0 L (25.0-35.0) pg MCHC 29.9 L (31.0-37.0) g/dL RDW 16.3 H (11.5-15.5) % Plt Count 515 H (150-450) k/uL MPV 8.8 Neutrophils % 70 % Lymphocytes % 16 % Monocytes % 8 % Eosinophils % 2 % Basophils % 1 % Neutrophils # 8.0 H (1.3-7.7) k/uL Lymphocytes # 1.8 (1.0-4.8) k/uL Monocytes # 0.9 (0-1.0) k/uL Eosinophils # 0.2 (0-0.7) k/uL Basophils # 0.1 (0-0.2) k/uL Hypochromasia Marked Poikilocytosis Slight Anisocytosis Slight Microcytosis Slight PT 13.0 H (10.0-12.5) sec INR 1.2 H (<1.2) APTT 27.1 (22.0-30.0) sec D-Dimer 0.45 (<0.60) mg/L FEU Sodium 136 L (137-145) mmol/L Potassium 3.9 (3.5-5.1) mmol/L Chloride 100 (98-107) mmol/L Carbon Dioxide 31 H (22-30) mmol/L Anion Gap 5 mmol/L BUN 17 (7-17) mg/dL Creatinine 0.72 (0.52-1.04) mg/dL Est GFR (CKD-EPI)AfAm >90 (>60 ml/min/1.73 sqM) Est GFR (CKD-EPI)NonAf 86 (>60 ml/min/1.73 sqM) Glucose 199 H (74-99) mg/dL Calcium 8.4 (8.4-10.2) mg/dL Magnesium 1.9 (1.6-2.3) mg/dL Total Bilirubin 0.3 (0.2-1.3) mg/dL AST 21 (14-36) U/L ALT 17 (4-34) U/L Alkaline Phosphatase 96 (38-126) U/L Troponin I (0.000-0.034) ng/mL NT-Pro-B Natriuret Pep 589 pg/mL Total Protein 5.4 L (6.3-8.2) g/dL Albumin 3.3 L (3.5-5.0) g/dL 07/07/24 Range/Units 08:39 WBC (3.8-10.6) k/uL RBC (3.80-5.40) m/uL Hgb (11.4-16.0) gm/dL Hct (34.0-46.0) % MCV (80.0-100.0) fL MCH (25.0-35.0) pg MCHC (31.0-37.0) g/dL RDW (11.5-15.5) % Plt Count (150-450) k/uL MPV Neutrophils % % Lymphocytes % % Monocytes % % Eosinophils % % Basophils % % Neutrophils # (1.3-7.7) k/uL Lymphocytes # (1.0-4.8) k/uL Monocytes # (0-1.0) k/uL Eosinophils # (0-0.7) k/uL Basophils # (0-0.2) k/uL Hypochromasia Poikilocytosis Anisocytosis Microcytosis PT (10.0-12.5) sec INR (<1.2) APTT (22.0-30.0) sec D-Dimer (<0.60) mg/L FEU Sodium (137-145) mmol/L Potassium (3.5-5.1) mmol/L Chloride (98-107) mmol/L Carbon Dioxide (22-30) mmol/L Anion Gap mmol/L BUN (7-17) mg/dL Creatinine (0.52-1.04) mg/dL Est GFR (CKD-EPI)AfAm (>60 ml/min/1.73 sqM) Est GFR (CKD-EPI)NonAf (>60 ml/min/1.73 sqM) Glucose (74-99) mg/dL Calcium (8.4-10.2) mg/dL Magnesium (1.6-2.3) mg/dL Total Bilirubin (0.2-1.3) mg/dL AST (14-36) U/L ALT (4-34) U/L Alkaline Phosphatase (38-126) U/L Troponin I <0.012 (0.000-0.034) ng/mL NT-Pro-B Natriuret Pep pg/mL Total Protein (6.3-8.2) g/dL Albumin (3.5-5.0) g/dL Disposition <Rachell Mar - Last Filed: 07/07/24 07:50> Is patient prescribed a controlled substance at d/c from ED?: No Time of Disposition: 10:52 Decision to Admit Reason: Admit from EC Decision Date: 07/07/24 Decision Time: 10:52 <Brielle Marcus - Last Filed: 07/07/24 17:16> Clinical Impression: Hypoxia, Hemoptysis, History of pulmonary embolism Disposition: ADMITTED IP TO THIS HOSP Condition: Stable
--- NOTE | 2024-07-07 08:05 | XR ---
EXAMINATION TYPE: XR chest 2V DATE OF EXAM: 07/07/2024 COMPARISON: NONE HISTORY: Cough and chest pain TECHNIQUE: Frontal and lateral views of the chest are obtained. FINDINGS: The lungs are clear. There is no pleural effusion or pneumothorax. Heart and pulmonary vasculature are normal. There is a moderate to large hiatal hernia. The osseous structures are intact. IMPRESSION: 1. No acute cardiopulmonary disease. 2. Moderate to large hiatal hernia. [facility], , 07/07/2024 8:03 AM
[2024-07-07 08:47] LABS: Anisocytosis Slight; Basophils # (A) 0.1 k/uL (0-0.2); Basophils % (A) 1 %; Eosinophils # (A) 0.2 k/uL (0-0.7); Eosinophils % (A) 2 %; HGB 7.8 gm/dL (11.4-16.0); Hypochromasia Marked; Lymphocytes # (A) 1.8 k/uL (1.0-4.8); Lymphocytes % (A) 16 %; MCHC 29.9 g/dL (31.0-37.0); MCV 76.9 fL (80.0-100.0); Mean Platelet Volume 8.8; Microcytosis Slight; Monocytes # (A) 0.9 k/uL (0-1.0); Monocytes % (A) 8 %; Neutrophils % (A) 70 %; Platelet Count 515 k/uL (150-450); Poikilocytosis Slight; RBC 3.38 m/uL (3.80-5.40); RDW 16.3 % (11.5-15.5); WBC 11.3 k/uL (3.8-10.6)
[2024-07-07 09:02] LABS: ALT 17 U/L (4-34); AST 21 U/L (14-36); African American GFR (CKD) >90 (>60 ml/min/1.73 sqM); Albumin 3.3 g/dL (3.5-5.0); Alkaline Phosphatase 96 U/L (38-126); Anion Gap 5 mmol/L; Blood Urea Nitrogen 17 mg/dL (7-17); Calcium 8.4 mg/dL (8.4-10.2); Carbon Dioxide 31 mmol/L (22-30); Chloride 100 mmol/L (98-107); Glucose 199 mg/dL (74-99); Magnesium 1.9 mg/dL (1.6-2.3); Non-African American GFR(CKD) 86 (>60 ml/min/1.73 sqM); Potassium 3.9 mmol/L (3.5-5.1); Sodium 136 mmol/L (137-145); Total Bilirubin 0.3 mg/dL (0.2-1.3); Total Protein 5.4 g/dL (6.3-8.2)
[2024-07-07 09:04] LABS: INR 1.2 (<1.2); Partial Thromboplastin Time 27.1 sec (22.0-30.0)
[2024-07-07 09:10] LABS: NT-Pro-B-Type Natriuretic Pept 589 pg/mL
--- NOTE | 2024-07-07 09:47 | CT ---
EXAMINATION TYPE: CT chest angio for PE DATE OF EXAM: 07/07/2024 COMPARISON: None HISTORY: PE CT DLP: 516 mGycm Automated exposure control for dose reduction was used. CONTRAST: CT Chest for pulmonary embolism performed with with IV Contrast, patient injected with 60 mL of Isovu e 370. FINDINGS: LUNGS: The lungs are grossly clear, there is no concerning parenchymal mass or nodule identified. T here is no pleural effusion or pneumothorax seen. The tracheobronchial tree is patent. There are mil d emphysematous changes in the upper lobes. MEDIASTINUM: There is satisfactory enhancement of the pulmonary artery and its branches, there is no CT evidence for pulmonary embolism. There are no greater than 1 cm hilar or mediastinal lymph nodes. No pericardial effusion is seen. OTHER: Large hiatal hernia. IMPRESSION: 1. No evidence of pulmonary medicine. 2. Mild emphysematous changes. 3. No acute cardiopulmonary disease. 4. large hiatal hernia Follow-up recommendations for incidental pulmonary nodules are per [employer] or [employer]. [facility], , 07/07/2024 9:45 AM
[2024-07-07] MEDS ORDERED: NALOXONE 0.4 MG/ML 1 ML VIAL IV PRN (10:53)
--- NOTE | 2024-07-07 11:22 | P.HPIM ---
History of Present Illness H&P Date: 07/07/24 Chief Complaint: hemoptysis 69-year-old woman with medical history of multiple sclerosis, chronic narcotic dependence on a morphine pain pump, restless leg syndrome, history of pulmonary embolism on Xarelto presented for hemoptysis. Patient says that approximately 2 weeks ago she was eating a chicken and a piece of the bone got stuck in her throat and she had to cough it up. Over the last week she has had increased cough and in the last 24 hours she started develop some production of bright red blood with this. Because she is on blood thinner she became concerned over hemoptysis and present to the hospital for further evaluation. She reports subjective fevers, chills. She reports dyspnea, cough. She denies nausea, vomiting. She reports constipation. She denies chest pain, palpitations, syncope, presyncope, dysuria. In the emergency room, patient was afebrile, 135/60, heart rate 99, 94% on room air and then required 3 L nasal cannula to saturate 98%. CBC showed mild leukocytosis to 11.3, significant drop of hemoglobin from her prior to 7.8 from 16, thrombocytosis to 515, MCV was 76.9. INR is 1.2. Basic metabolic panel shows hyponatremia to 136, CO2 of 31. Liver function tests are unremarkable. BNP was 589. Troponin was less than 0.012. Chest x-ray showed no acute cardiopulmonary disease. CT scan was negative for pulmonary embolism, did show diffuse groundglass, and to my interpretation, possibility of fistulization between esophagus and trachea. Patient was started on IV fluids in the emergency room and internal medicine was contacted for patient admission with pulmonology consult and GI consult. All Systems reviewed and pertinent positives and negatives noted in HPI, all other symptoms are negative Gen: In NAD, non-toxic HEENT: normocephalic, atraumatic, hearing acuity is intant, mucous membranes moist CVS: perfusing all extremities well, no pitting edema, Respiratory: symmetric chest expansion, no accessory muscle use, diffuse wheezing GI: soft, epigastric tenderness, ND, palpable pump in the left lower quadrant : no suprapubic tenderness, no CVA tenderness MSK/Derm: no rashes, cyanosis Neuro: CN II-XII intact, no motor weakness, Psych: cooperative, euthymic mood, judgment and insight is intact Labs and imaging as above Assessment/plan: Acute hypoxemic respiratory failure Hemoptysis Acute blood loss anemia -Admit patient to inpatient with telemetry -pulmonology consult, GI consult to determine bronchoscopy versus EGD to determine etiology of hemoptysis -Trend CBC -N.p.o., pantoprazole 40 mg IV twice daily -IV fluids -Transfuse for hemoglobin less than 7 -Hold home Xarelto Chronic narcotic dependence Multiple sclerosis History of pulmonary embolism -Home medication reconciliation is pending completion of medication history Patient is full code Past Medical History Past Medical History: Fibromyalgia, GERD/Reflux, Neurologic Disorder, Pulmonary Embolus (PE), Seizure Disorder, Sleep Apnea/CPAP/BIPAP Additional Past Medical History / Comment(s): Multiple sclerosis, some dysphagia at times, incontinent or urine/bowels at times, generalized nerve pain, migraines, spinal stenosis, dx colitis at age 15 yrs, frequent falls, hypoglycemia, chronic fatigue syndrome, last seizure around 2019 History of Any Multi-Drug Resistant Organisms: None Reported Past Surgical History: Appendectomy, Back Surgery, Cholecystectomy, Hysterectomy Additional Past Surgical History / Comment(s): spinal cord stimulator surgically placed in December 2012, morphine pain pump placed, laparoscopic surgery for fibroids Past Anesthesia/Blood Transfusion Reactions: Previous Problems w/ Anesthesia, Motion Sickness Additional Past Anesthesia/Blood Transfusion Reaction / Comment(s): "hard to wake up and my blood pressure gets very low" Past Psychological History: Depression Smoking Status: Current every day smoker Past Alcohol Use History: Rare Past Drug Use History: None Reported - Past Family History Father Family Medical History: Cancer Brother(s) Family Medical History: Cancer Medications and Allergies Home Medications Medication Instructions Recorded Confirmed Type rOPINIRole HCL [Requip] 4 mg PO HS 02/14/17 06/21/23 History Cholecalciferol [Vitamin D3 (25 2,000 units PO DAILY 02/15/17 06/21/23 History Mcg = 1000 Iu)] Gabapentin 400 mg PO DAILY 06/22/17 06/21/23 History Multivitamins, Thera [Multivitamin 1 tab PO DAILY 06/22/17 06/21/23 History (formulary)] Venlafaxine HCl [Effexor XR] 75 mg PO DAILY 06/22/17 06/21/23 History Dalfampridine [Dalfampridine ER] 10 mg PO Q12H 06/19/23 06/21/23 History Fenofibrate,Micronized 134 mg PO DAILY 06/19/23 06/21/23 History [Fenofibrate] Furosemide [Lasix] 20 mg PO DAILY PRN 06/19/23 06/21/23 History Nf-Morphine Pain Pump 1 dose .ROUTE CONTINUOUS 06/19/23 06/21/23 History Omeprazole 20 mg PO DAILY 06/19/23 06/21/23 History Rivaroxaban [Xarelto] 20 mg PO DAILY 06/19/23 06/21/23 History Allergies Allergy/AdvReac Type Severity Reaction Status Date / Time No Known Allergies Allergy Verified 07/07/24 11:17 Physical Exam Osteopathic Statement: *. No significant issues noted on an osteopathic structural exam other than those noted in the History and Physical/Consult. Vitals: Vital Signs Temp Pulse Resp BP Pulse Ox 07/07/24 10:25 91 16 119/53 98 07/07/24 07:24 98.2 F 99 18 135/60 94 L Intake and Output 07/06/24 07/07/24 07/07/24 22:59 06:59 14:59 Other: Weight 99.79 kg Results CBC & Chem 7: 07/07/24 08:39 07/07/24 08:39 Labs: Abnormal Lab Results - Last 24 Hours (Table) 07/07/24 07/07/24 07/07/24 Range/Units 08:39 08:39 08:39 WBC 11.3 H (3.8-10.6) k/uL RBC 3.38 L (3.80-5.40) m/uL Hgb 7.8 L (11.4-16.0) gm/dL Hct 26.0 L (34.0-46.0) % MCV 76.9 L (80.0-100.0) fL MCH 23.0 L (25.0-35.0) pg MCHC 29.9 L (31.0-37.0) g/dL RDW 16.3 H (11.5-15.5) % Plt Count 515 H (150-450) k/uL Neutrophils # 8.0 H (1.3-7.7) k/uL PT 13.0 H (10.0-12.5) sec INR 1.2 H (<1.2) Sodium 136 L (137-145) mmol/L Carbon Dioxide 31 H (22-30) mmol/L Glucose 199 H (74-99) mg/dL Total Protein 5.4 L (6.3-8.2) g/dL Albumin 3.3 L (3.5-5.0) g/dL
[2024-07-07] MEDS: SODIUM CHLORIDE 0.9% 1,000 ML IV SCH (11:40)
[2024-07-07] MEDS: PANTOPRAZOLE 40 MG/10 ML VIAL IVP SCH (11:41)
--- NOTE | 2024-07-07 15:10 | P.CNPUL ---
History of Present Illness Consult date: 07/07/24 Reason for consult: cough History of present illness: This is a 69-year-old female patient who presented to the emergency department increased cough along with some bright red blood tinged sputum. Apparently, approximately 6 weeks ago, the patient was eating chicken and a piece of the bone got stuck in her throat and she was able to cough it out 2 weeks ago and she denies having aspiration. She has chronic dysphagia. Noted the patient is also taking anticoagulation with Xarelto regarding previous history of pulmonary embolism. She is known to have chronic pain issues and the patient has a morphine pump in place. She has multiple sclerosis. At this point in time, the patient is on 3 Suboxone nasal cannula with a pulse ox of 98%. Pulse ox on room air is around 94%. Afebrile hemodynamically stable. The white cell count is 11 and a platelet count is at 515 with a hemoglobin of 7.8. Electrolytes are normal. proBNP level is 599 and the COVID-19 testing was negative. LFTs are within normal limits. Chest x-ray was done in the emergency and it showed no acute cardiopulmonary process and the patient had a moderate-sized hiatal hernia. Based on her ongoing symptoms, a CT of the chest was also done that showed no evidence of any pulmonary embolism. Large hiatal hernia. No pleural effusion. No consolidation. No airspace disease. Pulmonary arteries were adequately enhancing. Based on all this, a pulmonary consultation was requested. Noted the patient is on no home O2. She is a chronic smoker. She is also known to have very mild component of COPD. No major residual medications being utilized on outpatient basis. Review of Systems Constitutional: Reports fatigue, Reports weakness, Reports weight gain Eyes: denies as per HPI, denies blurred vision, denies bulging eye, denies decreased vision, denies diplopia, denies discharge, denies dry eye, denies irritation, denies itching, denies pain, denies photophobia, denies loss of peripheral vision, denies loss of vision, denies tunnel vision/blind spots Ears: deny: decreased hearing, ear discharge, earache, tinnitus Ears, nose, mouth and throat: Reports as per HPI Breasts: absent: as per HPI, change in shape, gynecomastia, masses, nipple discharge, pain, skin changes, swelling Cardiovascular: Reports as per HPI Respiratory: Reports cough, Reports hemoptysis Gastrointestinal: Reports as per HPI Genitourinary: Reports as per HPI Menstruation: Reports as per HPI Musculoskeletal: Reports arm numbness/tingling, Reports limitation of motion, Reports muscle weakness, Reports myalgias Musculoskeletal: absent: ankle pain, ankle stiffness, ankle swelling, as per HPI, elbow pain, elbow stiffness, elbow swelling, foot pain, foot stiffness, fo ot swelling, hand pain, hand stiffness, hand swelling, hip pain, hip stiffness, hip swelling, knee pain, knee stiffness, knee swelling, shoulder pain, shoulder stiffness, shoulder swelling, wrist pain, wrist stiffness, wrist swelling Integumentary: Reports as per HPI Neurological: Reports as per HPI, Reports motor disturbance, Reports numbness, Reports tingling, Reports weakness Psychiatric: Reports as per HPI Hematologic/Lymphatic: Reports as per HPI Allergic/Immunologic: Reports as per HPI Past Medical History Past Medical History: Fibromyalgia, GERD/Reflux, Neurologic Disorder, Pulmonary Embolus (PE), Seizure Disorder, Sleep Apnea/CPAP/BIPAP Additional Past Medical History / Comment(s): Multiple sclerosis, some dysphagia at times, incontinent or urine/bowels at times, generalized nerve pain, migr aines, spinal stenosis, dx colitis at age 15 yrs, frequent falls, hypoglycemia, chronic fatigue syndrome, last seizure around 2019 History of Any Multi-Drug Resistant Organisms: None Reported Past Surgical History: Appendectomy, Back Surgery, Cholecystectomy, Hysterectomy Additional Past Surgical History / Comment(s): spinal cord stimulator surgically placed in December 2012, morphine pain pump placed, laparoscopic surgery for fibroids Past Anesthesia/Blood Transfusion Reactions: Previous Problems w/ Anesthesia, Motion Sickness Additional Past Anesthesia/Blood Transfusion Reaction / Comment(s): "hard to wake up and my blood pressure gets very low" Past Psychological History: Depression Smoking Status: Current every day smoker Past Alcohol Use History: Rare Past Drug Use History: None Reported - Past Family History Father Family Medical History: Cancer Brother(s) Family Medical History: Cancer Medications and Allergies Home Medications Medication Instructions Recorded Confirmed Type Multivitamins, Thera [Multivitamin 1 tab PO DAILY 06/22/17 07/07/24 History (formulary)] Dalfampridine [Dalfampridine ER] 10 mg PO Q12H 06/19/23 07/07/24 History Fenofibrate,Micronized 134 mg PO DAILY 06/19/23 07/07/24 History [Fenofibrate] Furosemide [Lasix] 20 - 40 mg PO DAILY PRN 06/19/23 07/07/24 History Rivaroxaban [Xarelto] 20 mg PO W/SUPPER 06/19/23 07/07/24 History Albuterol Inhaler [Ventolin Hfa 2 puff INHALATION RT-Q6H PRN 07/07/24 07/07/24 History Inhaler] Amitriptyline HCl [Elavil] 25 mg PO HS 07/07/24 07/07/24 History Butalb/APAP/Caff 50-325-40Mg 1 tab PO Q8H PRN 07/07/24 07/07/24 History [Fioricet 50-325-40] Esomeprazole Magnesium [NexIUM] 40 mg PO BID 07/07/24 07/07/24 History Gabapentin 300 mg PO TID 07/07/24 07/07/24 History Ibuprofen [Motrin] 800 mg PO Q8H PRN 07/07/24 07/07/24 History Metoclopramide [Reglan] 5 mg PO AC-TID 07/07/24 07/07/24 History Nicotine 21Mg/24Hr Patch [Habitrol] 1 patch TRANSDERM DAILY 07/07/24 07/07/24 History Ondansetron [Zofran] 4 - 8 mg PO Q8H PRN 07/07/24 07/07/24 History Patient Own Pump 0 bag 07/07/24 History rOPINIRole HCL 4 mg PO TID 07/07/24 07/07/24 History traMADol HCL 50 mg PO BID PRN 07/07/24 07/07/24 History Allergies Allergy/AdvReac Type Severity Reaction Status Date / Time No Known Allergies Allergy Verified 07/07/24 11:17 Physical Exam Vitals: Vital Signs Temp Pulse Resp BP Pulse Ox 07/07/24 12:11 18 07/07/24 10:25 91 16 119/53 98 07/07/24 07:24 98.2 F 99 18 135/60 94 L Intake and Output 07/06/24 07/07/24 07/07/24 22:59 06:59 14:59 Other: Weight 99.79 kg The patient appeared well nourished and normally developed. Vital signs as documented. Head exam is unremarkable. No scleral icterus or corneal arcus noted. Neck is without jugular venous distension, thyromegaly, or carotid bruits. Carotid upstrokes are brisk bilaterally. Lungs are diminished breath sound bilaterally and scattered expiratory wheezes throughout the lung mora.. Cardiac exam reveals the PMI to be normally sized and situated. Rhythm is regular. First and second heart sounds normal. No murmurs, rubs or gallops. Abdominal exam reveals normal bowel sounds, no masses, no organomegaly and no aortic enlargement. The patient has a palpable pump in the left lower quadrant of the abdomen. Extremities are nonedematous and both femoral and pedal pulses are normal. Examination of the skin revealed no evidence of significant rashes, suspicious appearing nevi or other concerning lesions. Neurologically, the patient is awake and alert and the patient does not have any focal neurological deficit. Cranial nerves are essentially intact. Results - Laboratory Findings CBC and BMP: 07/07/24 08:39 07/07/24 08:39 PT/INR, D-dimer PT 13.0 sec (10.0-12.5) H 07/07/24 08:39 INR 1.2 (<1.2) H 07/07/24 08:39 D-Dimer 0.45 mg/L FEU (<0.60) 07/07/24 08:39 Abnormal lab findings: Abnormal Labs 07/07/24 07/07/24 07/07/24 08:39 08:39 08:39 WBC 11.3 H RBC 3.38 L Hgb 7.8 L Hct 26.0 L MCV 76.9 L MCH 23.0 L MCHC 29.9 L RDW 16.3 H Plt Count 515 H Neutrophils # 8.0 H PT 13.0 H INR 1.2 H Sodium 136 L Carbon Dioxide 31 H Glucose 199 H Total Protein 5.4 L Albumin 3.3 L - Diagnostic Findings Chest x-ray: image reviewed CT scan - chest: image reviewed Assessment and Plan Plan: Subacute cough with a questionable hemoptysis probably related to traumatic event while swallowing the bone structure, which she was ultimately able to cough out few weeks after. The CAT scan of the chest done utilizing the CTA protocol showed no evidence any pulmonary embolism. No airspaces or consolidation. This could have been further exacerbated by the intake of anticoagulation with Xarelto. Acute COPD exacerbation with secondary cough and shortness of breath Previous history of pulm embolism maintained on anticoagulation with Xarelto Multiple sclerosis with chronic dysphagia Urinary retention/incontinence secondary to above Chronic pain secondary to above Migraines Spinal stenosis Chronic fatigue Fibromyalgia Seizure disorder Pain stimulator and morphine pump for pain control Leg edema Smoking the patient smokes around 1 pack of cigarettes Plan The patient has obvious signs of acute exacerbation. Patient is going to be started on DuoNeb treatments [id number] IV Solu-Medrol 60 mg every 6 hours IV Lasix 20 mg every 12 hours Smoking cessation counseling Patient is currently on room air oxygen. May continue anticoagulation. Monitor cough. Offered antitussive medications to suppress her cough. Aspiration precautions. Swallow evaluation. Resume home medications. Will follow.
[2024-07-07] MEDS: GABAPENTIN 300 MG CAP PO SCH (15:46)
[2024-07-07] MEDS: rOPINIRole HCL 4 MG TABLET PO SCH (15:46)
[2024-07-07] MEDS: IPRATROPIUM-ALBUTEROL 3 ML NEB INHALATION SCH (15:57)
[2024-07-07] MEDS: RIVAROXABAN 20 MG TAB PO SCH (17:08)
[2024-07-07] MEDS: methylPREDNISolone SOD SUCCI 125 MG/2 ML VIAL IV SCH (17:08)
[2024-07-07 17:46] LABS: Anisocytosis Slight; Basophils # (A) 0.1 k/uL (0-0.2); Basophils % (A) 1 %; Eosinophils # (A) 0.2 k/uL (0-0.7); Eosinophils % (A) 2 %; HCT 24.1 % (34.0-46.0); HGB 7.3 gm/dL (11.4-16.0); Hypochromasia Marked; Lymphocytes # (A) 2.3 k/uL (1.0-4.8); Lymphocytes % (A) 22 %; MCH 22.9 pg (25.0-35.0); MCHC 30.2 g/dL (31.0-37.0); MCV 75.9 fL (80.0-100.0); Mean Platelet Volume 6.8; Microcytosis Slight; Monocytes # (A) 0.9 k/uL (0-1.0); Monocytes % (A) 9 %; Neutrophils # (A) 6.8 k/uL (1.3-7.7); Neutrophils % (A) 64 %; Platelet Count 493 k/uL (150-450); Poikilocytosis Slight; RBC 3.17 m/uL (3.80-5.40); RDW 16.5 % (11.5-15.5); WBC 10.6 k/uL (3.8-10.6)
[2024-07-07] MEDS: AMITRIPTYLINE HCL 25 MG TAB PO SCH (21:46)
[2024-07-07] MEDS: PANTOPRAZOLE 40 MG TABLET PO SCH (21:46)
[2024-07-07] MEDS: FUROSEMIDE 10 MG/ML 2 ML VIAL IV SCH (21:46)
[2024-07-08 08:34] LABS: Basophils # (A) 0.03 X 10*3/uL (0.00-0.10); Basophils % (A) 0.3 %; Eosinophils # (A) 0 X 10*3/uL (0.04-0.35); Eosinophils % (A) 0 %; HCT 25.1 % (37.2-46.3); HGB 7.4 g/dL (12.0-15.0); Lymphocytes # (A) 1.15 X 10*3/uL (0.90-5.00); Lymphocytes % (A) 10.8 %; MCH 23.2 pg (27.0-32.0); MCHC 29.5 g/dL (32.0-37.0); MCV 78.7 FL (80.0-97.0); Mean Platelet Volume 9.8 FL (9.5-12.2); Monocytes # (A) 0.13 X 10*3/uL (0.20-1.00); Monocytes % (A) 1.2 %; NRBC Per 100 WBC 0.03 X 10*3/uL (0.00-0.01); Neutrophils # (A) 9.23 X 10*3/uL (1.80-7.70); Neutrophils % (A) 86.9 %; Platelet Count 450 X 10*3/uL (140-440); RBC 3.19 X 10*6/uL (4.10-5.20); WBC 10.62 X 10*3/uL (4.50-10.00)
[2024-07-08 08:47] LABS: BUN/Creat Ratio 21.86 Ratio (12.00-20.00); Blood Urea Nitrogen 15.3 mg/dL (9.0-27.0); Calcium 8.1 mg/dL (8.7-10.3); Carbon Dioxide 26.3 mmol/L (21.6-31.8); Chloride 99 mmol/L (96-109); Glucose 266 mg/dL (70-110); Potassium 4.6 mmol/L (3.5-5.5); Sodium 136 mmol/L (135-145)
[2024-07-08] MEDS: FENOFIBRATE 160 MG TAB PO SCH (10:28)
[2024-07-08] MEDS: NICOTINE 21MG/24HR PATCH TRANSDERM SCH (10:29)
--- NOTE | 2024-07-08 10:44 | P.PN ---
Subjective Progress Note Date: 07/08/24 This is a 69-year-old female patient who presented to the emergency department increased cough along with some bright red blood tinged sputum. Apparently, approximately 6 weeks ago, the patient was eating chicken and a piece of the bone got stuck in her throat and she was able to cough it out 2 weeks ago and she denies having aspiration. She has chronic dysphagia. Noted the patient is also taking anticoagulation with Xarelto regarding previous history of pulmonary embolism. She is known to have chronic pain issues and the patient has a morphine pump in place. She has multiple sclerosis. At this point in time, the patient is on 3 Suboxone nasal cannula with a pulse ox of 98%. Pulse ox on room air is around 94%. Afebrile hemodynamically stable. The white cell count is 11 and a platelet count is at 515 with a hemoglobin of 7.8. Electrolytes are normal. proBNP level is 599 and the COVID-19 testing was negative. LFTs are within normal limits. Chest x-ray was done in the emergency and it showed no acute cardiopulmonary process and the patient had a moderate-sized hiatal hernia. Based on her ongoing symptoms, a CT of the chest was also done that showed no evidence of any pulmonary embolism. Large hiatal hernia. No pleural effusion. No consolidation. No airspace disease. Pulmonary arteries were adequately enhancing. Based on all this, a pulmonary consultation was tatiana gill. Noted the patient is on no home O2. She is a chronic smoker. She is also known to have very mild component of COPD. No major residual medications being utilized on outpatient basis. The patient is seen today July 08, 2024 in follow-up on the regular medical floor. She is currently sitting up at the bedside. Awake and alert in no acute distress. She is maintaining O2 saturations in the 90s on 3 L nasal cannula. She is afebrile. Hemodynamically stable. She has a dry nonproductive cough. No hemoptysis. White count 10.6. Hemoglobin 7.4. Platelets 450. Sodium 136. Potassium 4.6. Bicarb 26. BUN 15. Creatinine 0.7. Glucose 266. COVID screen not detected. She remains on bronchodilators, steroids. NicoDerm patch in place. She is receiving normal saline at 75 mL/h. Remains on Protonix. GI consult pending. Objective - Vital Signs Vital signs: Vital Signs Temp 97.9 F 07/08/24 07:00 Pulse 84 07/08/24 08:57 Resp 16 07/08/24 07:00 BP 122/66 07/08/24 07:00 Pulse Ox 98 07/08/24 07:00 FiO2 Intake & Output 07/07/24 07/08/24 07/08/24 18:59 06:59 18:59 Output Total 850 Balance -850 Weight 99.79 kg 99.79 kg Output: Urine 850 Other: # Voids 3 # Bowel Movements 0 - Exam GENERAL EXAM: Alert, pale, 69-year-old female, on 3 L nasal cannula, comfortable in no apparent distress. HEAD: Normocephalic. EYES: Normal reaction of pupils, equal size. NOSE: Clear with pink turbinates. THROAT: No erythema or exudates. NECK: No masses, no JVD. CHEST: No chest wall deformity. LUNGS: Equal air entry with no crackles, wheeze, rhonchi or dullness. CVS: S1 and S2 normal with no audible murmur, regular rhythm. ABDOMEN: No hepatosplenomegaly, normal bowel sounds, no guarding or rigidity. SPINE: No scoliosis or deformity SKIN: No rashes CENTRAL NERVOUS SYSTEM: No focal deficits, tone is normal in all 4 extremities. EXTREMITIES: There is no peripheral edema. No clubbing, no cyanosis. Peripheral pulses are intact. - Labs CBC & Chem 7: 07/08/24 04:45 07/08/24 04:45 Labs: Abnormal Lab Results - Last 24 Hours (Table) 07/07/24 07/08/24 07/08/24 Range/Units 17:14 04:45 04:45 WBC 10.62 H (4.50-10.00) X 10*3/uL RBC 3.17 L 3.19 L (3.80-5.40) m/uL Hgb 7.3 L 7.4 L (11.4-16.0) gm/dL Hct 24.1 L 25.1 L (34.0-46.0) % MCV 75.9 L 78.7 L (80.0-100.0) fL MCH 22.9 L 23.2 L (25.0-35.0) pg MCHC 30.2 L 29.5 L (31.0-37.0) g/dL RDW 16.5 H 17.0 H (11.5-15.5) % Plt Count 493 H 450 H (150-450) k/uL Immature Gran # 0.08 H (0.00-0.04) X 10*3/uL Neutrophils # 9.23 H (1.80-7.70) X 10*3/uL Monocytes # 0.13 L (0.20-1.00) X 10*3/uL Eosinophils # 0 L (0.04-0.35) X 10*3/uL NRBC/100 WBC Diff 0.03 H (0.00-0.01) X 10*3/uL BUN/Creatinine Ratio 21.86 H (12.00-20.00) Ratio Glucose 266 H (70-110) mg/dL Calcium 8.1 L (8.7-10.3) mg/dL Assessment and Plan Assessment: Subacute cough with a questionable hemoptysis probably related to traumatic event while swallowing a chicken bone, which she was ultimately able to cough out few weeks after. The CAT scan of the chest done utilizing the CTA protocol showed no evidence any pulmonary embolism. No airspaces or consolidation. This could have been further exacerbated by anticoagulation with Xarelto Acute COPD exacerbation with secondary cough and shortness of breath Acute hypoxemic respiratory failure secondary to above Previous history of pulm embolism maintained on anticoagulation with Xarelto Multiple sclerosis with chronic dysphagia Urinary retention/incontinence secondary to above Chronic pain secondary to above Migraines Spinal stenosis Chronic fatigue Fibromyalgia Seizure disorder Pain pump with morphine for pain control Leg edema Smoking the patient smokes around 1 pack of cigarettes Plan: The patient was seen and evaluated Labs and medications reviewed Continue bronchodilators, steroids Continue IV diuretics Educated regarding smoking cessation NicoDerm patch has been offered GI consult pending We will continue to follow I have personally seen and examined the patient, performed the documentation and the assessment and plan as written. Number of minutes spent on the visit: 10 Dictation was produced using [employer] dictation software. Please excuse any grammatical, word or spelling errors.
--- NOTE | 2024-07-08 14:56 | P.CONS ---
History of Present Illness - Reason for Consult Consult date: 07/08/24 Questionable GI bleed Requesting physician: Brielle aMrcus - Chief Complaint Coughing up blood - History of Present Illness This is a pleasant 69-year-old white female who presented to the emergency department yesterday with complaints of coughing up blood. She states that few weeks ago she was eating chicken and swallowed a chicken bone which felt like it got lodged in the back of her throat or esophagus. She states that she has been coughing quite a bit and over the last couple weeks she was able to cough up the chicken bone. Since that time she continues to have coughing and yesterday she coughed up what appeared to be a blood clot. She was concerned and came into the emergency department for further evaluation. She was found to be hypoxic in the emergency department with an oxygen saturation at 83%. She he has a history of COPD, pulmonary embolism on Xarelto, fibromyalgia, GERD, seizure disorder and sleep apnea. She denies any abdominal pain, does state that she has quite a bit of difficulty with keeping food down. States that after she eats a lot of times she has to sit up for quite some time otherwise she will will bring her food right back up. She denies any bloody emesis. Denies blood in her stool or black stool. She has had no previous upper endoscopy with Dr. Alvarado in June 2023 for dysphagia. EGD had findings of small hiatal hernia and retained food in the stomach possibly secondary to gastroparesis. Review of Systems REVIEW OF SYSTEMS: CARDIOPULMONARY: No chest pain or shortness of breath. Coughing with blood- tinged sputum. Gastrointestinal: No abdominal pain. No nausea or vomiting. Dysphagia. no hematemesis, coffee-ground emesis. No rectal bleeding, or melena. GENITOURINARY: No dysuria or hematuria. MUSCULOSKELETAL: Reports normal range of motion., Joint pain. SKIN: No rashes. No jaundice. ENDOCRINE: No chills, fevers. No excessive weight gain or loss. No polydipsia or polyuria. PSYCHIATRIC: Unremarkable. NEUROLOGY: No change in mental status. Denies dizziness, headache. ENT: Vision unremarkable. CONSTITUTIONAL: No recent weight loss. No fever, chills, night sweats. Past Medical History Past Medical History: Fibromyalgia, GERD/Reflux, Neurologic Disorder, Pulmonary Embolus (PE), Seizure Disorder, Sleep Apnea/CPAP/BIPAP Additional Past Medical History / Comment(s): Multiple sclerosis, some dysphagia at times, incontinent or urine/bowels at times, generalized nerve pain, migraines, spinal stenosis, dx colitis at age 15 yrs, frequent falls, hypoglycemia, chronic fatigue syndrome, last seizure around 2019 History of Any Multi-Drug Resistant Organisms: None Reported Past Surgical History: Appendectomy, Back Surgery, Cholecystectomy, Hysterectomy Additional Past Surgical History / Comment(s): spinal cord stimulator surgically placed in December 2012, morphine pain pump placed, laparoscopic surgery for fibroids Past Anesthesia/Blood Transfusion Reactions: Previous Problems w/ Anesthesia, Motion Sickness Additional Past Anesthesia/Blood Transfusion Reaction / Comm: "hard to wake up and my blood pressure gets very low" Past Psychological History: Depression Additional Psychological History / Comment(s): . Smoking Status: Current every day smoker Past Alcohol Use History: Rare Additional Past Alcohol Use History / Comment(s): Pt started smoking at the age of 13 yrs, 1 ppd smoker. Past Drug Use History: None Reported Additional Drug Use History / Comment(s): . - Past Family History Father Family Medical History: Cancer Brother(s) Family Medical History: Cancer Medications and Allergies Home Medications Medication Instructions Recorded Confirmed Type Multivitamins, Thera [Multivitamin 1 tab PO DAILY 06/22/17 07/07/24 History (formulary)] Dalfampridine [Dalfampridine ER] 10 mg PO Q12H 06/19/23 07/07/24 History Fenofibrate,Micronized 134 mg PO DAILY 06/19/23 07/07/24 History [Fenofibrate] Furosemide [Lasix] 20 - 40 mg PO DAILY PRN 06/19/23 07/07/24 History Rivaroxaban [Xarelto] 20 mg PO W/SUPPER 06/19/23 07/07/24 History Albuterol Inhaler [Ventolin Hfa 2 puff INHALATION RT-Q6H PRN 07/07/24 07/07/24 History Inhaler] Amitriptyline HCl [Elavil] 25 mg PO HS 07/07/24 07/07/24 History Butalb/APAP/Caff 50-325-40Mg 1 tab PO Q8H PRN 07/07/24 07/07/24 History [Fioricet 50-325-40] Esomeprazole Magnesium [NexIUM] 40 mg PO BID 07/07/24 07/07/24 History Gabapentin 300 mg PO TID 07/07/24 07/07/24 History Ibuprofen [Motrin] 800 mg PO Q8H PRN 07/07/24 07/07/24 History Metoclopramide [Reglan] 5 mg PO AC-TID 07/07/24 07/07/24 History Nicotine 21Mg/24Hr Patch [Habitrol] 1 patch TRANSDERM DAILY 07/07/24 07/07/24 History Ondansetron [Zofran] 4 - 8 mg PO Q8H PRN 07/07/24 07/07/24 History Patient Own Pump 0 bag 07/07/24 History rOPINIRole HCL 4 mg PO TID 07/07/24 07/07/24 History traMADol HCL 50 mg PO BID PRN 07/07/24 07/07/24 History Allergies Allergy/AdvReac Type Severity Reaction Status Date / Time No Known Allergies Allergy Verified 07/07/24 11:17 Physical Exam Vitals: Vital Signs Temp Pulse Pulse Resp BP BP Pulse Ox 07/08/24 12:19 80 07/08/24 12:06 76 07/08/24 08:57 84 07/08/24 08:45 84 07/08/24 08:00 16 07/08/24 07:00 97.9 F 80 16 122/66 98 07/08/24 01:32 98 F 80 16 114/70 95 07/07/24 22:06 84 07/07/24 21:55 80 07/07/24 20:10 98.1 F 88 16 148/78 100 07/07/24 19:51 98.4 F 84 16 133/57 98 07/07/24 17:14 85 16 111/64 98 07/07/24 16:08 84 07/07/24 15:57 83 Intake and Output 07/07/24 07/08/24 07/08/24 22:59 06:59 14:59 Output Total 850 Balance -850 Output: Urine 850 Other: # Voids 3 # Bowel Movements 0 Weight 99.79 kg General appearance: The patient is alert, oriented, appears in no acute distress. HET: Head is normocephalic and atraumatic. Conjunctiva pink. Sclera anicteric. Neck: Supple without lymphadenopathy. Trachea midline. Heart: Regular. Lungs: Equal expansion, normal respiratory effort. Abdomen: Soft, epigastric tenderness, nondistended. Skin: No rashes. No jaundice. Extremities: Normal skin color and turgor. No pedal edema. Neurological: No focal deficits. Alert and oriented x3. Results CBC & Chem 7: 07/08/24 04:45 07/08/24 04:45 Labs: Abnormal Lab Results - Last 24 Hours (Table) 07/07/24 07/08/24 07/08/24 Range/Units 17:14 04:45 04:45 WBC 10.62 H (4.50-10.00) X 10*3/uL RBC 3.17 L 3.19 L (3.80-5.40) m/uL Hgb 7.3 L 7.4 L (11.4-16.0) gm/dL Hct 24.1 L 25.1 L (34.0-46.0) % MCV 75.9 L 78.7 L (80.0-100.0) fL MCH 22.9 L 23.2 L (25.0-35.0) pg MCHC 30.2 L 29.5 L (31.0-37.0) g/dL RDW 16.5 H 17.0 H (11.5-15.5) % Plt Count 493 H 450 H (150-450) k/uL Immature Gran # 0.08 H (0.00-0.04) X 10*3/uL Neutrophils # 9.23 H (1.80-7.70) X 10*3/uL Monocytes # 0.13 L (0.20-1.00) X 10*3/uL Eosinophils # 0 L (0.04-0.35) X 10*3/uL NRBC/100 WBC Diff 0.03 H (0.00-0.01) X 10*3/uL BUN/Creatinine Ratio 21.86 H (12.00-20.00) Ratio Glucose 266 H (70-110) mg/dL Calcium 8.1 L (8.7-10.3) mg/dL Comments: Chest CTA reports no evidence of pulmonary embolism. Mild emphysematous changes. No acute cardiopulmonary disease. Large hiatal hernia. Assessment and Plan (1) Dysphagia Narrative/Plan: 69-year-old female with a history of dysphagia presented to the emergency dep artment after having coughed up blood. States she swallowed a chicken bone a few weeks ago and that it had been lodged for sometime in her throat which she was able to cough it out about a week ago. Since that time she has had continual coughing and yesterday had reported blood clot come out with her coughing. Gastroenterology consulted for possible GI bleed. Does not appear that patient has a GI bleed however she is still complaining of dysphagia and stating that she is unable to keep her food down. Last upper endoscopy with findings of small hiatal hernia and retained food in the stomach that can be seen with gastroparesis in June 2023. CTA is showing large hiatal hernia, dysphagia may be secondary to the hiatal hernia. Discussed with patient GERD or reflux measures. Will continue to hold anticoagulation and plan for upper endoscopy on Monday. Current Visit: Yes Status: Acute Code(s): R13.10 - DYSPHAGIA, UNSPECIFIED SNOMED Code(s): 06354145 (2) Hiatal hernia Current Visit: Yes Status: Acute Code(s): K44.9 - DIAPHRAGMATIC HERNIA WITHOUT OBSTRUCTION OR GANGRENE SNOMED Code(s): 30348267 (3) Hemoptysis Current Visit: Yes Status: Acute Code(s): R04.2 - HEMOPTYSIS SNOMED Code(s): 38905503 (4) History of pulmonary embolism Current Visit: Yes Status: Acute Code(s): Z86.711 - PERSONAL HISTORY OF PULMONARY EMBOLISM SNOMED Code(s): 130594051 Plan: 1. Continue symptomatic and supportive care 2. Discussed with patient antireflux measures 3. Hold anticoagulation 4. Protonix 40 mg daily 5. Full liquid diet. Recommend small frequent meals 6. Will plan for upper endoscopy on 07/10/2024 7. Continue with recommendations from pulmonology Thank you for this consultation, we will continue to follow. Dr. Karl Sebastian I agree with the dictator's note, documented as a scribe by Celeste Hudson.
[2024-07-08] MEDS: ONDANSETRON 4 MG/2 ML VIAL IVP PRN (16:07)
[2024-07-08] MEDS: diphenhydrAMINE 25 MG CAP PO PRN (17:16)
--- NOTE | 2024-07-08 18:15 | P.PN ---
Subjective Progress Note Date: 07/08/24 Subjective: Patient seen and examined at the bedside. Patient had an episode of hemoptysis overnight. Otherwise generally stable with no other complaints. All Systems reviewed and pertinent positives and negatives noted in HPI, all other symptoms are negative Objective: Vital signs reviewed. General: non toxic, no distress, appears at stated age, normal weight Derm: no unusual rashes/lesions, warm. Bilateral venous stasis dermatitis, right worse than left Head: atraumatic, normocephalic, symmetric Eyes: EOMI, no lid lag, anicteric sclera, pupils equal round reactive to light ENT: Nose and ears atraumatic Neck: No cervical lymphadenopathy, trachea midline, supple Mouth: no lip lesion, mucus membranes moist Cardiovascular: S1S2 reg, no murmur, positive dorsalis pedis pulse bilateral, no edema Lungs: CTA bilateral, no rhonchi, no rales, no accessory muscle use Abdominal: soft, nontender to palpation, no guarding Ext: muscle strength 5 out of 5 in all 4 extremities grossly, no gross muscle atrophy, no contractures, Neuro: CN II-XI grossly intact, no gross focal neuro deficits Psych: Alert, oriented, appropriate affect Data reviewed today: Pertinent positive Labs: WBC 10.62, RBC 0.19, hemoglobin 7.4, MCV 78.6, platelet count 450, BMP unremarkable, glucose 266, calcium 8.1 Images: No new imaging Assessment and Plan: 69-year-old female with a history of multiple sclerosis and 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 Patient is admitted to the hospital for upper GI evaluation. #Acute hypoxemic respiratory failure #Hemoptysis #Acute blood loss anemia Continue cardiac monitoring Pulmonology note reviewed; continue with Solu-Medrol 60 mg IV every 6 hours and DuoNebs 4 times daily, IV Lasix every 12 hours GI note reviewed; continue to hold home Xarelto, EGD likely on Monday Monitor CBC in a.m. tomorrow pantoprazole 40 mg IV twice daily Diet advanced to full liquid diet Transfuse for hemoglobin less than 7 Chronic narcotic dependence Multiple sclerosis History of pulmonary embolism Home medication have been reconciled Patient is full code DVT ppx: SCDs Code Status: Full code Anticipated discharge place: Home Anticipated discharge date: Pending clinical course I saw and evaluated the patient during the fernandez and critical portions of this encounter, and discussed the case in detail with the resident author of this note, I agree with the Assessment and Plan, and my changes, if any, are highlighted in blue. Objective - Vital Signs Vital signs: Vital Signs Temp 97.7 F 07/08/24 15:55 Pulse 84 07/08/24 16:41 Resp 16 07/08/24 15:55 BP 122/72 07/08/24 15:55 Pulse Ox 95 07/08/24 16:55 FiO2 Intake & Output 07/07/24 07/08/24 07/08/24 18:59 06:59 18:59 Intake Total 560 Output Total 850 Balance -850 560 Weight 99.79 kg 99.79 kg Intake: Oral 560 Output: Urine 850 Other: # Voids 3 3 # Bowel Movements 0 1 - Labs CBC & Chem 7: 07/08/24 04:45 07/08/24 04:45 Labs: Abnormal Lab Results - Last 24 Hours (Table) 07/07/24 07/08/24 07/08/24 Range/Units 17:14 04:45 04:45 WBC 10.62 H (4.50-10.00) X 10*3/uL RBC 3.17 L 3.19 L (3.80-5.40) m/uL Hgb 7.3 L 7.4 L (11.4-16.0) gm/dL Hct 24.1 L 25.1 L (34.0-46.0) % MCV 75.9 L 78.7 L (80.0-100.0) fL MCH 22.9 L 23.2 L (25.0-35.0) pg MCHC 30.2 L 29.5 L (31.0-37.0) g/dL RDW 16.5 H 17.0 H (11.5-15.5) % Plt Count 493 H 450 H (150-450) k/uL Immature Gran # 0.08 H (0.00-0.04) X 10*3/uL Neutrophils # 9.23 H (1.80-7.70) X 10*3/uL Monocytes # 0.13 L (0.20-1.00) X 10*3/uL Eosinophils # 0 L (0.04-0.35) X 10*3/uL NRBC/100 WBC Diff 0.03 H (0.00-0.01) X 10*3/uL BUN/Creatinine Ratio 21.86 H (12.00-20.00) Ratio Glucose 266 H (70-110) mg/dL Calcium 8.1 L (8.7-10.3) mg/dL
[2024-07-09 07:50] LABS: Anisocytosis Slight; Basophils % (A) 0 %; Eosinophils % (A) 0 %; HCT 25.4 % (34.0-46.0); HGB 7.5 gm/dL (11.4-16.0); Hypochromasia Marked; Lymphocytes # (A) 1.1 k/uL (1.0-4.8); Lymphocytes % (A) 8 %; MCHC 29.4 g/dL (31.0-37.0); MCV 78.3 fL (80.0-100.0); Mean Platelet Volume 7.1; Microcytosis Slight; Monocytes # (A) 0.6 k/uL (0-1.0); Monocytes % (A) 4 %; Neutrophils # (A) 11.5 k/uL (1.3-7.7); Neutrophils % (A) 86 %; Platelet Count 494 k/uL (150-450); Poikilocytosis Slight; RBC 3.25 m/uL (3.80-5.40); RDW 16.4 % (11.5-15.5); WBC 13.4 k/uL (3.8-10.6)
[2024-07-09 08:17] LABS: African American GFR (CKD) >90 (>60 ml/min/1.73 sqM); Anion Gap 6 mmol/L; Blood Urea Nitrogen 23 mg/dL (7-17); Calcium 8.5 mg/dL (8.4-10.2); Carbon Dioxide 31 mmol/L (22-30); Chloride 99 mmol/L (98-107); Glucose 222 mg/dL (74-99); Non-African American GFR(CKD) >90 (>60 ml/min/1.73 sqM); Potassium 4.4 mmol/L (3.5-5.1); Sodium 136 mmol/L (137-145)
[2024-07-09] MEDS: CALCIUM CARBONATE 500 MG CHEWABLE PO PRN (10:13)
--- NOTE | 2024-07-09 13:03 | P.PN ---
Subjective Progress Note Date: 07/09/24 This is a 69-year-old female patient who presented to the emergency department increased cough along with some bright red blood tinged sputum. Apparently, approximately 6 weeks ago, the patient was eating chicken and a piece of the bone got stuck in her throat and she was able to cough it out 2 weeks ago and she denies having aspiration. She has chronic dysphagia. Noted the patient is also taking anticoagulation with Xarelto regarding previous history of pulmonary embolism. She is known to have chronic pain issues and the patient has a morphine pump in place. She has multiple sclerosis. At this point in time, the patient is on 3 Suboxone nasal cannula with a pulse ox of 98%. Pulse ox on room air is around 94%. Afebrile hemodynamically stable. The white cell count is 11 and a platelet count is at 515 with a hemoglobin of 7.8. Electrolytes are normal. proBNP level is 599 and the COVID-19 testing was negative. LFTs are within normal limits. Chest x-ray was done in the emergency and it showed no acute cardiopulmonary process and the patient had a moderate-sized hiatal hernia. Based on her ongoing symptoms, a CT of the chest was also done that showed no evidence of any pulmonary embolism. Large hiatal hernia. No pleural effusion. No consolidation. No airspace disease. Pulmonary arteries were adequately enhancing. Based on all this, a pulmonary consultation was tatiana govea Noted the patient is on no home O2. She is a chronic smoker. She is also known to have very mild component of COPD. No major residual medications being utilized on outpatient basis. The patient is seen today July 08, 2024 in follow-up on the regular medical floor. She is currently sitting up at the bedside. Awake and alert in no acute distress. She is maintaining O2 saturations in the 90s on 3 L nasal cannula. She is afebrile. Hemodynamically stable. She has a dry nonproductive cough. No hemoptysis. White count 10.6. Hemoglobin 7.4. Platelets 450. Sodium 136. Potassium 4.6. Bicarb 26. BUN 15. Creatinine 0.7. Glucose 266. COVID screen not detected. She remains on bronchodilators, steroids. NicoDerm patch in place. She is receiving normal saline at 75 mL/h. Remains on Protonix. GI consult pending. The patient is seen today July 09, 2024 in follow-up on the regular medical floor. She is awake and alert in no acute distress. Currently sitting up havin g a full liquid breakfast. No worsening shortness of breath, cough or congestion. She is maintaining O2 saturations in the 90s on 3 liters per minute per nasal cannula. White count 13.4. Hemoglobin 7.5. Platelets 494. Sodium 136. Potassium 4.4. Bicarb 31. BUN 23. Creatinine 0.61. Glucose 222. Objective - Vital Signs Vital signs: Vital Signs Temp 97.9 F 07/09/24 08:52 Pulse 68 07/09/24 11:40 Resp 14 07/09/24 11:40 BP 121/55 07/09/24 11:40 Pulse Ox 100 07/09/24 11:40 FiO2 Intake & Output 07/08/24 07/09/24 07/09/24 18:59 06:59 18:59 Intake Total 560 396 Output Total 400 Balance 560 -400 396 Intake: Oral 560 396 Output: Urine 400 Other: # Voids 3 200 1 # Bowel Movements 1 - Exam GENERAL EXAM: Alert, 69-year-old female, sitting up in bed, on 3 L nasal cannula, in no apparent distress. HEAD: Normocephalic. EYES: Normal reaction of pupils, equal size. NOSE: Clear with pink turbinates. THROAT: No erythema or exudates. NECK: No masses, no JVD. CHEST: No chest wall deformity. LUNGS: Equal air entry with no crackles, wheeze, rhonchi or dullness. CVS: S1 and S2 normal with no audible murmur, regular rhythm. ABDOMEN: No hepatosplenomegaly, normal bowel sounds, no guarding or rigidity. SPINE: No scoliosis or deformity SKIN: No rashes CENTRAL NERVOUS SYSTEM: No focal deficits, tone is normal in all 4 extremities. EXTREMITIES: There is no peripheral edema. No clubbing, no cyanosis. Peripheral pulses are intact. - Labs CBC & Chem 7: 07/09/24 07:27 07/09/24 07:27 Labs: Abnormal Lab Results - Last 24 Hours (Table) 07/09/24 07/09/24 Range/Units 07: 07:27 WBC 13.4 H (3.8-10.6) k/uL RBC 3.25 L (3.80-5.40) m/uL Hgb 7.5 L (11.4-16.0) gm/dL Hct 25.4 L (34.0-46.0) % MCV 78.3 L (80.0-100.0) fL MCH 23.0 L (25.0-35.0) pg MCHC 29.4 L (31.0-37.0) g/dL RDW 16.4 H (11.5-15.5) % Plt Count 494 H (150-450) k/uL Neutrophils # 11.5 H (1.3-7.7) k/uL Sodium 136 L (137-145) mmol/L Carbon Dioxide 31 H (22-30) mmol/L BUN 23 H (7-17) mg/dL Glucose 222 H (74-99) mg/dL Assessment and Plan Assessment: Subacute cough with a questionable hemoptysis probably related to traumatic event while swallowing a chicken bone, which she was ultimately able to cough out few weeks after. The CAT scan of the chest done utilizing the CTA protocol showed no evidence any pulmonary embolism. No airspaces or consolidation. This could have been further exacerbated by anticoagulation with Xarelto Acute COPD exacerbation with secondary cough and shortness of breath Acute hypoxemic respiratory failure secondary to above Previous history of pulm embolism maintained on Xarelto Multiple sclerosis with chronic dysphagia Urinary retention/incontinence secondary to above Chronic pain secondary to above Migraines Spinal stenosis Chronic fatigue Fibromyalgia Seizure disorder Pain pump with morphine for pain control Leg edema Smoking the patient smokes around 1 pack of cigarettes Plan: The patient was seen and evaluated Labs and medications reviewed Continue the current treatment plan GI planning for EGD tomorrow We will continue to follow This patient was seen independently by the pulmonary nurse practitioner addressing pulmonary issues I have personally seen and examined the patient, performed the documentation and the assessment and plan as written. Number of minutes spent on the visit: 25 Dictation was produced using [employer] dictation software. Please excuse any grammatical, word or spelling errors.
[2024-07-09] MEDS: traMADol 50 MG TAB PO PRN (13:30)
--- NOTE | 2024-07-09 14:09 | P.PN ---
Subjective Progress Note Date: 07/09/24 Principal diagnosis: Dysphagia, GERD This is a pleasant 69-year-old white female who presented to the emergency department yesterday with complaints of coughing up blood. She states that few weeks ago she was eating chicken and swallowed a chicken bone which felt like it got lodged in the back of her throat or esophagus. She states that she has been coughing quite a bit and over the last couple weeks she was able to cough up the chicken bone. Since that time she continues to have coughing and yesterday she coughed up what appeared to be a blood clot. She was concerned and came into the emergency department for further evaluation. She was found to be hypoxic in the emergency department with an oxygen saturation at 83%. She he has a history of COPD, pulmonary embolism on Xarelto, fibromyalgia, GERD, seizure disorder and sleep apnea. She denies any abdominal pain, does state that she has quite a bit of difficulty with keeping food down. States that after she eats a lot of times she has to sit up for quite some time otherwise she will will bring her food rig ht back up. She denies any bloody emesis. Denies blood in her stool or black stool. She has had no previous upper endoscopy with Dr. Alvarado in June 2023 for dysphagia. EGD had findings of small hiatal hernia and retained food in the stomach possibly secondary to gastroparesis. 07/09/2024 Patient seen and examined today as a follow-up. States that she has quite a bit of acid reflux after eating breakfast. No vomiting. Objective - Vital Signs Vital signs: Vital Signs Temp 97.9 F 07/09/24 08:52 Pulse 68 07/09/24 11:40 Resp 14 07/09/24 11:40 BP 121/55 07/09/24 11:40 Pulse Ox 100 07/09/24 11:40 FiO2 Intake & Output 07/08/24 07/09/24 07/09/24 18:59 06:59 18:59 Intake Total 560 396 Output Total 400 Balance 560 -400 396 Intake: Oral 560 396 Output: Urine 400 Other: # Voids 3 200 1 # Bowel Movements 1 - Exam General appearance: The patient is alert, oriented, appears in no acute distress. HET: Head is normocephalic and atraumatic. Conjunctiva pink. Sclera anicteric. Neck: Supple without lymphadenopathy. Abdomen: Soft, nontender, nondistended with bowel sounds. No guarding or rigidity. Extremities: Normal skin color and turgor. No pedal edema Skin: No rashes, no jaundice Neurological: No focal deficits. Alert and oriented. - Labs CBC & Chem 7: 07/09/24 07:27 07/09/24 07:27 Labs: Abnormal Lab Results - Last 24 Hours (Table) 07/09/24 07/09/24 Range/Units 07:27 07:27 WBC 13.4 H (3.8-10.6) k/uL RBC 3.25 L (3.80-5.40) m/uL Hgb 7.5 L (11.4-16.0) gm/dL Hct 25.4 L (34.0-46.0) % MCV 78.3 L (80.0-100.0) fL MCH 23.0 L (25.0-35.0) pg MCHC 29.4 L (31.0-37.0) g/dL RDW 16.4 H (11.5-15.5) % Plt Count 494 H (150-450) k/uL Neutrophils # 11.5 H (1.3-7.7) k/uL Sodium 136 L (137-145) mmol/L Carbon Dioxide 31 H (22-30) mmol/L BUN 23 H (7-17) mg/dL Glucose 222 H (74-99) mg/dL Assessment and Plan (1) Dysphagia Narrative/Plan: 69-year-old female with a history of dysphagia presented to the emergency department after having coughed up blood. States she swallowed a chicken bone a few weeks ago and that it had been lodged for sometime in her throat which she was able to cough it out about a week ago. Since that time she has had continual coughing and yesterday had reported blood clot come out with her coughing. Gastroenterology consulted for possible GI bleed. Does not appear that patient has a GI bleed however she is still complaining of dysphagia and stating that she is unable to keep her food down. Last upper endoscopy with findings of small hiatal hernia and retained food in the stomach that can be seen with gastroparesis in June 2023. CTA is showing large hiatal hernia, dysphagia may be secondary to the hiatal hernia. Discussed with patient GERD or reflux measures. Will continue to hold anticoagulation and plan for upper endoscopy on Monday. Current Visit: Yes Status: Acute Code(s): R13.10 - DYSPHAGIA, UNSPECIFIED SNOMED Code(s): 71780734 (2) Hiatal hernia Current Visit: Yes Status: Acute Code(s): K44.9 - DIAPHRAGMATIC HERNIA WITHOUT OBSTRUCTION OR GANGRENE SNOMED Code(s): 67484512 (3) Hemoptysis Current Visit: Yes Status: Acute Code(s): R04.2 - HEMOPTYSIS SNOMED Code(s): 93293571 (4) History of pulmonary embolism Current Visit: Yes Status: Acute Code(s): Z86.711 - PERSONAL HISTORY OF PULMONARY EMBOLISM SNOMED Code(s): 276937235 Plan: 1. Continue symptomatic and supportive care 2. Discussed with patient antireflux measures 3. Hold anticoagulation 4. Protonix 40 mg daily 5. Antiemetics as needed 6. Full liquid diet. N.p.o. after midnight 7. Will plan for upper endoscopy tomorrow 8. Continue with recommendations from pulmonology Thank you for this consultation, we will continue to follow. Dr. Karl Sebastian I agree with the dictator's note, documented as a scribe by Celeste Hudson.
[2024-07-09] MEDS: ALPRAZolam 0.25 MG TAB PO STA (14:36)
[2024-07-09] MEDS: FUROSEMIDE 20 MG TAB PO SCH (16:21)
--- NOTE | 2024-07-09 17:10 | P.PN ---
Subjective Progress Note Date: 07/09/24 Subjective: Patient seen and examined at the bedside. Patient reports no episode of hemoptysis overnight. Patient is stable with no other complaints. All Systems reviewed and pertinent positives and negatives noted in HPI, all other symptoms are negative Objective: Vital signs reviewed. General: non toxic, no distress, appears at stated age, normal weight Derm: no unusual rashes/lesions, warm. Bilateral venous stasis dermatitis, right worse than left Head: atraumatic, normocephalic, symmetric Eyes: EOMI, no lid lag, anicteric sclera, pupils equal round reactive to light ENT: Nose and ears atraumatic Neck: No cervical lymphadenopathy, trachea midline, supple Mouth: no lip lesion, mucus membranes moist Cardiovascular: S1S2 reg, no murmur, positive dorsalis pedis pulse bilateral, no edema Lungs: CTA bilateral, no rhonchi, no rales, no accessory muscle use Abdominal: soft, nontender to palpation, no guarding Ext: muscle strength 5 out of 5 in all 4 extremities grossly, no gross muscle atrophy, no contractures, Neuro: CN II-XI grossly intact, no gross focal neuro deficits Psych: Alert, oriented, appropriate affect Data reviewed today: Pertinent positive Labs: WBC 13.4, hemoglobin 7.5, platelet count 494, sodium 136, BUN 23, creatinine 0.61 Images: No new imaging Assessment and Plan: 69-year-old female with a history of multiple sclerosis and 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 Patient is admitted to the hospital for upper GI evaluation. #Acute hypoxemic respiratory failure #Hemoptysis #Acute blood loss anemia Continue cardiac monitoring Pulmonology note reviewed IV Solu-Medrol dosage has been lowered from 60 mg IV every 6 hour to IV 40 mg once daily 60 mg Continue with DuoNebs 4 times daily IV Lasix discontinued; started on Lasix 20 mg p.o. twice daily GI note reviewed; continue to hold home Xarelto, EGD likely on Monday Monitor CBC in a.m. tomorrow pantoprazole 40 mg IV twice daily Diet advanced to full liquid diet Transfuse for hemoglobin less than 7 #Leukocytosis secondary to glucocorticoid WBC 13.4 Continue to monitor CBC Chronic narcotic dependence Multiple sclerosis History of pulmonary embolism Home medication have been reconciled Patient is full code DVT ppx: SCDs Code Status: Full code Anticipated discharge place: Home Anticipated discharge date: Pending clinical course I saw and evaluated the patient during the fernandez and critical portions of this encounter, and discussed the case in detail with the resident author of this note, I agree with the Assessment and Plan, and my changes, if any, are highlighted in blue. Objective - Vital Signs Vital signs: Vital Signs Temp 97.6 F 07/09/24 15:00 Pulse 92 07/09/24 15:26 Resp 18 07/09/24 15:00 BP 149/69 07/09/24 15:00 Pulse Ox 94 L 07/09/24 15:00 FiO2 Intake & Output 07/08/24 07/09/24 07/09/24 18:59 06:59 18:59 Intake Total 560 396 Output Total 400 Balance 560 -400 396 Intake: Oral 560 396 Output: Urine 400 Other: # Voids 3 200 3 # Bowel Movements 1 - Labs CBC & Chem 7: 07/09/24 07:27 07/09/24 07:27 Labs: Abnormal Lab Results - Last 24 Hours (Table) 07/09/24 07/09/24 Range/Units 07:27 07:27 WBC 13.4 H (3.8-10.6) k/uL RBC 3.25 L (3.80-5.40) m/uL Hgb 7.5 L (11.4-16.0) gm/dL Hct 25.4 L (34.0-46.0) % MCV 78.3 L (80.0-100.0) fL MCH 23.0 L (25.0-35.0) pg MCHC 29.4 L (31.0-37.0) g/dL RDW 16.4 H (11.5-15.5) % Plt Count 494 H (150-450) k/uL Neutrophils # 11.5 H (1.3-7.7) k/uL Sodium 136 L (137-145) mmol/L Carbon Dioxide 31 H (22-30) mmol/L BUN 23 H (7-17) mg/dL Glucose 222 H (74-99) mg/dL
[2024-07-10 08:45] LABS: Basophils # (A) 0.01 X 10*3/uL (0.00-0.10); Basophils % (A) 0.1 %; Eosinophils # (A) 0 X 10*3/uL (0.04-0.35); Eosinophils % (A) 0 %; HCT 25.1 % (37.2-46.3); HGB 7.4 g/dL (12.0-15.0); Lymphocytes % (A) 15.9 %; MCHC 29.5 g/dL (32.0-37.0); Mean Platelet Volume 9.9 FL (9.5-12.2); Monocytes # (A) 1.24 X 10*3/uL (0.20-1.00); Monocytes % (A) 9.4 %; NRBC Per 100 WBC 0.04 X 10*3/uL (0.00-0.01); Neutrophils # (A) 9.75 X 10*3/uL (1.80-7.70); Neutrophils % (A) 73.7 %; Platelet Count 445 X 10*3/uL (140-440); RBC 3.22 X 10*6/uL (4.10-5.20); RDW 17.1 % (11.5-14.5); WBC 13.22 X 10*3/uL (4.50-10.00)
[2024-07-10] MEDS: LORazepam 0.5 MG TAB PO STA (08:58)
[2024-07-10] MEDS ORDERED: methylPREDNISolone SOD SUCCI 40 MG/ML 1 ML VIAL IV SCH (09:00)
[2024-07-10] MEDS ORDERED: LIDOCAINE 1% INJ 10MG/ML (20 ML MDV) ONE (12:20)
[2024-07-10] MEDS ORDERED: PROPOFOL 10 MG/ML 20 ML VIAL IV ONE (12:20)
[2024-07-10] MEDS: IV FLUID CONTINUATION 1,000 ML IV ONE (12:20)
--- NOTE | 2024-07-10 12:25 | P.PN ---
Subjective Progress Note Date: 07/10/24 This is a 69-year-old female patient who presented to the emergency department increased cough along with some bright red blood tinged sputum. Apparently, approximately 6 weeks ago, the patient was eating chicken and a piece of the bone got stuck in her throat and she was able to cough it out 2 weeks ago and she denies having aspiration. She has chronic dysphagia. Noted the patient is also taking anticoagulation with Xarelto regarding previous history of pulmonary embolism. She is known to have chronic pain issues and the patient has a morphine pump in place. She has multiple sclerosis. At this point in time, the patient is on 3 Suboxone nasal cannula with a pulse ox of 98%. Pulse ox on room air is around 94%. Afebrile hemodynamically stable. The white cell count is 11 and a platelet count is at 515 with a hemoglobin of 7.8. Electrolytes are normal. proBNP level is 599 and the COVID-19 testing was negative. LFTs are within normal limits. Chest x-ray was done in the emergency and it showed no acute cardiopulmonary process and the patient had a moderate-sized hiatal hernia. Based on her ongoing symptoms, a CT of the chest was also done that showed no evidence of any pulmonary embolism. Large hiatal hernia. No pleural effusion. No consolidation. No airspace disease. Pulmonary arteries were adequately enhancing. Based on all this, a pulmonary consultation was tatiana govea Noted the patient is on no home O2. She is a chronic smoker. She is also known to have very mild component of COPD. No major residual medications being utilized on outpatient basis. The patient is seen today July 08, 2024 in follow-up on the regular medical floor. She is currently sitting up at the bedside. Awake and alert in no acute distress. She is maintaining O2 saturations in the 90s on 3 L nasal cannula. She is afebrile. Hemodynamically stable. She has a dry nonproductive cough. No hemoptysis. White count 10.6. Hemoglobin 7.4. Platelets 450. Sodium 136. Potassium 4.6. Bicarb 26. BUN 15. Creatinine 0.7. Glucose 266. COVID screen not detected. She remains on bronchodilators, steroids. NicoDerm patch in place. She is receiving normal saline at 75 mL/h. Remains on Protonix. GI consult pending. The patient is seen today July 09, 2024 in follow-up on the regular medical floor. She is awake and alert in no acute distress. Currently sitting up havin g a full liquid breakfast. No worsening shortness of breath, cough or congestion. She is maintaining O2 saturations in the 90s on 3 liters per minute per nasal cannula. White count 13.4. Hemoglobin 7.5. Platelets 494. Sodium 136. Potassium 4.4. Bicarb 31. BUN 23. Creatinine 0.61. Glucose 222. The patient is seen today July 10, 2024 in follow-up on the regular medical floor. Currently sitting up in bed. Awake and alert in no acute distress. Denies any shortness of breath, cough or congestion. Continue on room air. She has been afebrile. Hemodynamically stable. White count 13.2. Hemoglobin 7.4. Platelets 445. She remains on DuoNeb ventilations. Continued on oral diure tics. NicoDerm patch in place. Plan is for EGD today. Objective - Vital Signs Vital signs: Vital Signs Temp 97.9 F 07/10/24 11:40 Pulse 76 07/10/24 11:47 Resp 18 07/10/24 11:40 BP 157/53 07/10/24 11:40 Pulse Ox 93 L 07/10/24 11:40 FiO2 Intake & Output 07/09/24 07/10/24 07/10/24 18:59 06:59 18:59 Intake Total 636 Balance 636 Intake: Oral 636 Other: Voiding Method Toilet # Voids 3 2 1 - Exam GENERAL EXAM: Alert, 69-year-old female, on room air, in no apparent distress. HEAD: Normocephalic. EYES: Normal reaction of pupils, equal size. NOSE: Clear with pink turbinates. THROAT: No erythema or exudates. NECK: No masses, no JVD. CHEST: No chest wall deformity. LUNGS: Equal air entry with no crackles, wheeze, rhonchi or dullness. CVS: S1 and S2 normal with no audible murmur, regular rhythm. ABDOMEN: No hepatosplenomegaly, normal bowel sounds, no guarding or rigidity. SPINE: No scoliosis or deformity SKIN: No rashes CENTRAL NERVOUS SYSTEM: No focal deficits, tone is normal in all 4 extremities. EXTREMITIES: There is no peripheral edema. No clubbing, no cyanosis. Peripheral pulses are intact. - Labs CBC & Chem 7: 07/10/24 04:36 07/09/24 07:27 Labs: Abnormal Lab Results - Last 24 Hours (Table) 07/10/24 Range/Units 04:36 WBC 13.22 H (4.50-10.00) X 10*3/uL RBC 3.22 L (4.10-5.20) X 10*6/uL Hgb 7.4 L (12.0-15.0) g/dL Hct 25.1 L (37.2-46.3) % MCV 78.0 L (80.0-97.0) FL MCH 23.0 L (27.0-32.0) pg MCHC 29.5 L (32.0-37.0) g/dL RDW 17.1 H (11.5-14.5) % Plt Count 445 H (140-440) X 10*3/uL Immature Gran # 0.12 H (0.00-0.04) X 10*3/uL Neutrophils # 9.75 H (1.80-7.70) X 10*3/uL Monocytes # 1.24 H (0.20-1.00) X 10*3/uL Eosinophils # 0 L (0.04-0.35) X 10*3/uL NRBC/100 WBC Diff 0.04 H (0.00-0.01) X 10*3/uL Assessment and Plan Assessment: Subacute cough with a questionable hemoptysis probably related to traumatic event while swallowing a chicken bone, which she was ultimately able to cough out few weeks after. The CAT scan of the chest done utilizing the CTA protocol showed no evidence any pulmonary embolism. No airspaces or consolidation. This could have been further exacerbated by anticoagulation with Xarelto Acute COPD exacerbation with secondary cough and shortness of breath Acute hypoxemic respiratory failure secondary to above Previous history of pulm embolism maintained on Xarelto Multiple sclerosis with chronic dysphagia Urinary retention/incontinence secondary to above Chronic pain secondary to above Migraines Spinal stenosis Chronic fatigue Fibromyalgia Seizure disorder Pain pump with morphine for pain control Leg edema Smoking the patient smokes around 1 pack of cigarettes Plan: The patient was seen and evaluated Labs and medications reviewed Continue the current treatment plan Stable and on room air GI planning for EGD today This patient was seen independently by the pulmonary nurse practitioner addressing pulmonary issues I have personally seen and examined the patient, performed the documentation and the assessment and plan as written. Number of minutes spent on the visit: 23 Dictation was produced using [employer] dictation software. Please excuse any grammatical, word or spelling errors.
--- NOTE | 2024-07-10 12:41 | P.PCN ---
Date of Procedure: 07/10/24 Procedure(s) Performed: BRIEF HISTORY: Patient is a 69-year-old, pleasant, white female skilled for an upper endoscopy for evaluation of severe dysphagia to solids and chest pain for the last few days duration.. He has been on Xarelto which has been on hold for the last 2 days days. PROCEDURE PERFORMED: Esophagogastroduodenoscopy with biopsy and dilation PREOPERATIVE DIAGNOSIS: Chest pain/dysphagia to solids and passive regurgitation a few days duration. IV sedation per anesthesia. PROCEDURE: After informed consent was obtained, the patient was brought into the endoscopy unit. IV sedation was administered by Anesthesia under continuous monitoring. Initially the Olympus GIF-140 video endoscope was inserted into the mouth. Esophagus intubated without any difficulty. It was gradually advanced into the stomach and duodenum and carefully examined. The bulb and the second part of the duodenum appeared normal. The scope at this time was withdrawn to the stomach, adequately insufflated with air, and upon careful examination, mucosa of the antrum, body, cardia and the fundus appeared normal. The scope was then withdrawn into the esophagus. Moderate size hiatal hernia noted. The GE junction was located at 36 cm from the incisors. The distal esophageal stricture identified and this was dilated using 15 to 18 mm TTS balloon. There is a multiple superficial erosions noted in the mid and distal esophagus with thickened esophageal folds suspicious for eosinophilic esophagitis and multiple biopsies were done from this area. The rest of the esophagus appeared normal and the patient tolerated the procedure well. IMPRESSION: 1. Moderate-sized hiatal hernia. 2. Distal esophageal stricture status post balloon dilation using 15 to 18 mm TTS balloon 3. Linear superficial erosions with thickened esophageal folds in the distal esophagus consistent with ulcerative esophagitis status post biopsies rule out eosinophilic esophagitis versus reflux esophagitis. RECOMMENDATIONS: The findings of this examination were discussed with the patient. Follow-up with the biopsy results. Continue with Protonix 40 mg twice daily. Eliquis for 2 hours. Soft diet for dinner today.. Resume Xarelto today
--- NOTE | 2024-07-10 17:51 | P.PN ---
Subjective Progress Note Date: 07/10/24 Subjective: Patient seen and examined at the bedside. Patient reports no episode of hemoptysis overnight. Patient is stable with no other complaints. All Systems reviewed and pertinent positives and negatives noted in HPI, all other symptoms are negative Objective: Vital signs reviewed. General: non toxic, no distress, appears at stated age, normal weight Derm: no unusual rashes/lesions, warm. Bilateral venous stasis dermatitis, right worse than left Head: atraumatic, normocephalic, symmetric Eyes: EOMI, no lid lag, anicteric sclera, pupils equal round reactive to light ENT: Nose and ears atraumatic Neck: No cervical lymphadenopathy, trachea midline, supple Mouth: no lip lesion, mucus membranes moist Cardiovascular: S1S2 reg, no murmur, positive dorsalis pedis pulse bilateral, no edema Lungs: CTA bilateral, no rhonchi, no rales, no accessory muscle use Abdominal: soft, nontender to palpation, no guarding Ext: muscle strength 5 out of 5 in all 4 extremities grossly, no gross muscle atrophy, no contractures, Neuro: CN II-XI grossly intact, no gross focal neuro deficits Psych: Alert, oriented, appropriate affect Data reviewed today: Pertinent positive Labs: WBC 13.22, hemoglobin 7.4, MCV 78.0, platelet count 445 Images: No new imaging Assessment and Plan: 69-year-old female with a history of multiple sclerosis and 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 Patient is admitted to the hospital for upper GI evaluation. Patient underwent EGD with biopsy and dilation. #Acute hypoxemic respiratory failure, resolved Pulmonology note reviewed; IV Solu-Medrol has been discontinued Continue with DuoNebs 4 times daily Continue with Lasix 20 mg p.o. twice daily #Hematemesis #Acute blood loss anemia #Distal esophageal stricture status post balloon dilation #Ulcerative esophagitis status post biopsies, pending results GI on board; patient underwent EGD with biopsy and dilatation on 07/10/2024; results pending; patient to follow-up GI outpatient Hemoglobin stable at baseline 7.4; Transfuse for hemoglobin less than 7 Monitor CBC in a.m. tomorrow pantoprazole 40 mg p.o. twice daily Low fiber #Leukocytosis secondary to glucocorticoid WBC 13.4 Continue to monitor CBC IV Solu-Medrol has been discontinued Chronic narcotic dependence Multiple sclerosis History of pulmonary embolism Home medication have been reconciled Patient is full code DVT ppx: SCDs Code Status: Full code Anticipated discharge place: Home Anticipated discharge date: tomorrow I have seen and evaluated the patient today. Discussed with the resident and agree with the residents finding and plan as documented in the resident's note. Changes highlighted in blue font. Objective - Vital Signs Vital signs: Vital Signs Temp 97.6 F 07/10/24 13:00 Pulse 76 07/10/24 15:59 Resp 16 07/10/24 14:00 BP 138/90 07/10/24 14:00 Pulse Ox 98 07/10/24 13:15 FiO2 Intake & Output 07/09/24 07/10/24 07/10/24 18:59 06:59 18:59 Intake Total 636 100 Balance 636 100 Intake: IV 100 Oral 636 Other: Voiding Method Toilet # Voids 3 2 3 - Labs CBC & Chem 7: 07/10/24 04:36 07/09/24 07:27 Labs: Abnormal Lab Results - Last 24 Hours (Table) 07/10/24 Range/Units 04:36 WBC 13.22 H (4.50-10.00) X 10*3/uL RBC 3.22 L (4.10-5.20) X 10*6/uL Hgb 7.4 L (12.0-15.0) g/dL Hct 25.1 L (37.2-46.3) % MCV 78.0 L (80.0-97.0) FL MCH 23.0 L (27.0-32.0) pg MCHC 29.5 L (32.0-37.0) g/dL RDW 17.1 H (11.5-14.5) % Plt Count 445 H (140-440) X 10*3/uL Immature Gran # 0.12 H (0.00-0.04) X 10*3/uL Neutrophils # 9.75 H (1.80-7.70) X 10*3/uL Monocytes # 1.24 H (0.20-1.00) X 10*3/uL Eosinophils # 0 L (0.04-0.35) X 10*3/uL NRBC/100 WBC Diff 0.04 H (0.00-0.01) X 10*3/uL
[2024-07-11 07:34] VITALS: BP 136/62; RESP 17; TEMP 97.8
[2024-07-11 07:50] LABS: African American GFR (CKD) >90 (>60 ml/min/1.73 sqM); Anion Gap 4 mmol/L; Blood Urea Nitrogen 22 mg/dL (7-17); Calcium 8.1 mg/dL (8.4-10.2); Carbon Dioxide 36 mmol/L (22-30); Chloride 99 mmol/L (98-107); Glucose 127 mg/dL (74-99); Non-African American GFR(CKD) 84 (>60 ml/min/1.73 sqM); Potassium 4.1 mmol/L (3.5-5.1); Sodium 139 mmol/L (137-145)
[2024-07-11 07:55] LABS: HCT 27.3 % (34.0-46.0); HGB 8.1 gm/dL (11.4-16.0); RBC 3.52 m/uL (3.80-5.40); WBC 9.2 k/uL (3.8-10.6)
[2024-07-11 07:56] LABS: Anisocytosis Slight; Basophils % (A) 0 %; Eosinophils # (A) 0.1 k/uL (0-0.7); Eosinophils % (A) 1 %; Hypochromasia Marked; Lymphocytes # (A) 2.3 k/uL (1.0-4.8); Lymphocytes % (A) 25 %; MCH 22.9 pg (25.0-35.0); MCHC 29.6 g/dL (31.0-37.0); MCV 77.5 fL (80.0-100.0); Mean Platelet Volume 7.3; Microcytosis Slight; Monocytes # (A) 0.8 k/uL (0-1.0); Monocytes % (A) 9 %; Neutrophils # (A) 5.7 k/uL (1.3-7.7); Neutrophils % (A) 62 %; Platelet Count 491 k/uL (150-450); Poikilocytosis Slight; RDW 16.2 % (11.5-15.5)
[2024-07-11] MEDS: LACTATED RINGERS 1,000 ML IV SCH (09:15)
--- NOTE | 2024-07-11 11:42 | P.PN ---
Subjective Progress Note Date: 07/11/24 This is a 69-year-old female patient who presented to the emergency department increased cough along with some bright red blood tinged sputum. Apparently, approximately 6 weeks ago, the patient was eating chicken and a piece of the bone got stuck in her throat and she was able to cough it out 2 weeks ago and she denies having aspiration. She has chronic dysphagia. Noted the patient is also taking anticoagulation with Xarelto regarding previous history of pulmonary embolism. She is known to have chronic pain issues and the patient has a morphine pump in place. She has multiple sclerosis. At this point in time, the patient is on 3 Suboxone nasal cannula with a pulse ox of 98%. Pulse ox on room air is around 94%. Afebrile hemodynamically stable. The white cell count is 11 and a platelet count is at 515 with a hemoglobin of 7.8. Electrolytes are normal. proBNP level is 599 and the COVID-19 testing was negative. LFTs are within normal limits. Chest x-ray was done in the emergency and it showed no acute cardiopulmonary process and the patient had a moderate-sized hiatal hernia. Based on her ongoing symptoms, a CT of the chest was also done that showed no evidence of any pulmonary embolism. Large hiatal hernia. No pleural effusion. No consolidation. No airspace disease. Pulmonary arteries were adequately enhancing. Based on all this, a pulmonary consultation was tatiana govea Noted the patient is on no home O2. She is a chronic smoker. She is also known to have very mild component of COPD. No major residual medications being utilized on outpatient basis. The patient is seen today July 08, 2024 in follow-up on the regular medical floor. She is currently sitting up at the bedside. Awake and alert in no acute distress. She is maintaining O2 saturations in the 90s on 3 L nasal cannula. She is afebrile. Hemodynamically stable. She has a dry nonproductive cough. No hemoptysis. White count 10.6. Hemoglobin 7.4. Platelets 450. Sodium 136. Potassium 4.6. Bicarb 26. BUN 15. Creatinine 0.7. Glucose 266. COVID screen not detected. She remains on bronchodilators, steroids. NicoDerm patch in place. She is receiving normal saline at 75 mL/h. Remains on Protonix. GI consult pending. The patient is seen today July 09, 2024 in follow-up on the regular medical floor. She is awake and alert in no acute distress. Currently sitting up havin g a full liquid breakfast. No worsening shortness of breath, cough or congestion. She is maintaining O2 saturations in the 90s on 3 liters per minute per nasal cannula. White count 13.4. Hemoglobin 7.5. Platelets 494. Sodium 136. Potassium 4.4. Bicarb 31. BUN 23. Creatinine 0.61. Glucose 222. The patient is seen today July 10, 2024 in follow-up on the regular medical floor. Currently sitting up in bed. Awake and alert in no acute distress. Denies any shortness of breath, cough or congestion. Continue on room air. She has been afebrile. Hemodynamically stable. White count 13.2. Hemoglobin 7.4. Platelets 445. She remains on DuoNeb ventilations. Continued on oral diure tics. NicoDerm patch in place. Plan is for EGD today. The patient is seen today July 11, 2024 in follow-up on the regular medical floor. She is currently sitting up in a chair having breakfast. Awake and alert in no acute distress. No worsening shortness of breath, cough or congestion. She is maintaining good O2 saturations in the high 90s on 2 L/min per nasal cannula. She has been afebrile. Hemodynamically stable. She did undergo an EGD yesterday and was found to have a moderate-sized hiatal hernia. Distal esophageal stricture status post balloon dilatation. Linear superficial erosions with thickened esophageal folds in the distal esophagus consistent with ulcerative esophagitis status post biopsies rule out eosinophilic esophagitis versus reflux esophagitis. Continued on Protonix twice daily. White count 9.2. Hemoglobin 8.1. Sodium 139. Potassium 4.1. Bicarb 36. BUN 22. Creatinine 0.73. Glucose 84. She remains on bronchodilators. NicoDerm patch in place. Continued on oral diuretics. To be resumed on her Xarelto per GI service. Objective - Vital Signs Vital signs: Vital Signs Temp 97.8 F 07/11/24 07:32 Pulse 88 07/11/24 08:27 Resp 17 07/11/24 07:32 BP 136/62 07/11/24 07:32 Pulse Ox 97 07/11/24 08:18 FiO2 Intake & Output 07/10/24 07/11/2407/11/24 18:59 06:59 18:59 Intake Total 340 360 118 Balance 340 360 118 Intake: IV 100 Oral 240 360 118 Other: Voiding Method Toilet Toilet # Voids 1 2 1 - Exam GENERAL EXAM: Alert, 69-year-old female, sitting up in a chair having breakfast, in no apparent distress. HEAD: Normocephalic. EYES: Normal reaction of pupils, equal size. NOSE: Clear with pink turbinates. THROAT: No erythema or exudates. NECK: No masses, no JVD. CHEST: No chest wall deformity. LUNGS: Equal air entry with no crackles, wheeze, rhonchi or dullness. CVS: S1 and S2 normal with no audible murmur, regular rhythm. ABDOMEN: No hepatosplenomegaly, normal bowel sounds, no guarding or rigidity. SPINE: No scoliosis or deformity SKIN: No rashes CENTRAL NERVOUS SYSTEM: No focal deficits, tone is normal in all 4 extremities. EXTREMITIES: There is no peripheral edema. No clubbing, no cyanosis. Peripheral pulses are intact. - Labs CBC & Chem 7: 07/11/24 07:01 07/11/24 07:01 Labs: Abnormal Lab Results - Last 24 Hours (Table) 07/11/24 07/11/24 Range/Units 07:01 07:01 RBC 3.52 L (3.80-5.40) m/uL Hgb 8.1 L (11.4-16.0) gm/dL Hct 27.3 L (34.0-46.0) % MCV 77.5 L (80.0-100.0) fL MCH 22.9 L (25.0-35.0) pg MCHC 29.6 L (31.0-37.0) g/dL RDW 16.2 H (11.5-15.5) % Plt Count 491 H (150-450) k/uL Carbon Dioxide 36 H (22-30) mmol/L BUN 22 H (7-17) mg/dL Glucose 127 H (74-99) mg/dL Calcium 8.1 L (8.4-10.2) mg/dL Assessment and Plan Assessment: Subacute cough with a questionable hemoptysis probably related to traumatic event while swallowing a chicken bone, which she was ultimately able to cough out few weeks after. The CAT scan of the chest done utilizing the CTA protocol showed no evidence any pulmonary embolism. No airspaces or consolidation. This could have been further exacerbated by anticoagulation with Xarelto. She did undergo an EGD yesterday July 10 2024 and was found to have a moderate- sized hiatal hernia. Distal esophageal stricture status post balloon dilatation. Linear superficial erosions with thickened esophageal folds in the distal esophagus consistent with ulcerative esophagitis status post biopsies rule out eosinophilic esophagitis versus reflux esophagitis. Continued on Protonix twice daily Acute COPD exacerbation with secondary cough and shortness of breath, recovered Acute hypoxemic respiratory failure secondary to above stable and on room air Chronic tobacco dependence Previous history of pulmonary embolism maintained on Xarelto Multiple sclerosis with chronic dysphagia Urinary retention/incontinence secondary to above Chronic pain secondary to above Migraines Spinal stenosis Chronic fatigue Fibromyalgia Seizure disorder Pain pump with morphine for pain control Leg edema Plan: The patient was seen and evaluated EGD results, labs and medications reviewed Continue Protonix twice daily Resume Xarelto per GI service Educated regarding the importance of smoking cessation Cleared for discharge from the pulmonary standpoint This patient was seen independently by the pulmonary nurse practitioner addressing pulmonary issues I have personally seen and examined the patient, performed the documentation and the assessment and plan as written. Number of minutes spent on the visit: 24 Dictation was produced using [employer] dictation software. Please excuse any grammatical, word or spelling errors.
[2024-07-11 12:35] VITALS: PULSE 84
--- NOTE | 2024-07-11 12:52 | P.DS ---
Providers Date of admission: 07/07/24 10:53 Expected date of discharge: 07/11/24 Attending physician: Kady Mcknight MD Consults: 07/07/24 10:53 Consult Physician Urgent Consulting Provider: Kindra Esteves Consult Reason/Comments: Hemoptysis, anemia Do you want consulting provider notified?: Yes Consult Physician Urgent Consulting Provider: Salma Sebastian Consult Reason/Comments: Questionable upper GI bleed Do you want consulting provider notified?: Yes Primary care physician: Saji Mclain Hospital Course: Discharge Diagnosis: #Acute hypoxemic respiratory failure #Hematemesis #Acute blood loss anemia #Distal esophageal stricture status post balloon dilation #Ulcerative esophagitis status post biopsies #Leukocytosis secondary to glucocorticoid #History of chronic narcotic dependence #History of multiple sclerosis Hospital Course: 69-year-old female with a history of multiple sclerosis and 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 In the emergency room, patient was afebrile, 135/60, heart rate 99, 94% on room air and then required 3 L nasal cannula to saturate 98%. CBC showed mild leukocytosis to 11.3, significant drop of hemoglobin from her prior to 7.8 from 16, thrombocytosis to 515, MCV was 76.9. INR is 1.2. Basic metabolic panel shows hyponatremia to 136, CO2 of 31. Liver function tests are unremarkable. BNP was 589. Troponin was less than 0.012. Chest x-ray showed no acute cardiopulmonary disease. CT scan was negative for pulmonary embolism, did show diffuse groundglass opacities and large hiatal hernia. Patient was started on IV fluids in the emergency room and internal medicine was contacted. Pulmonology and GI was consulted. Patient is admitted to the hospital for upper GI evaluation for source of hematemesis. Patient underwent EGD which showed distal esophageal stricture (status post balloon dilation) and esophageal esophagitis with biopsy with no clear source of upper GI bleed identified. Hemoglobin improved during the course of admission. Patient was also evaluated by physical therapy, did not want to go to subacute rehab. Prescription signed for wheelchair. She will be getting home care. Patient is medically optimized to be discharged from GI and pulmonary standpoint as well as internal medicine. Discharge instruction Patient is advised to follow-up with PCP and gastroenterology within 1 to 2 weeks Patient otherwise to continue with her regular home medications as directed Vital signs reviewed. Gen: in no apparent distress, resting comfortably in bed Eyes: PERRL, no scleral injection or icterus HENT: normocephalic, atraumatic, good hearing acuity, moist mucous membranes Neck: full range of motion Resp: CTAB, no rales, rhonchi, or wheezes CVS: normal S1 and S2, no murmurs, rubs or gallops, no edema GI: soft, NTTP, ND, no hepatosplenomegaly : no suprapubic tenderness, no CVAT, hoyt catheter is not present MSK: no clubbing, no cyanosis, no noted contractures of extremities Skin: no noted rashes, petechiae; temperature of skin is appropriate Neuro: moving all extremities without signs of weakness, CN II-XII intact Psych: cooperative, euthymic mood, insight and judgment intact A total of 36 minutes of time were spent preparing this complex discharge summary. Patient was discharged on 07/11/2024 at 945. I have seen and evaluated the patient today. Discussed with the resident and agree with the residents finding and plan as documented in the resident's note. Changes highlighted in blue font. Patient Condition at Discharge: Stable Plan - Discharge Summary Discharge Rx Participant: No New Discharge Prescriptions: Continue Multivitamins, Thera [Multivitamin (formulary)] 1 tab PO DAILY Fenofibrate,Micronized [Fenofibrate] 134 mg PO DAILY Dalfampridine [Dalfampridine ER] 10 mg PO Q12H Rivaroxaban [Xarelto] 20 mg PO W/SUPPER Patient Own Pump 0 bag Albuterol Inhaler [Ventolin Hfa Inhaler] 2 puff INHALATION RT-Q6H PRN PRN Reason: Shortness Of Breath Butalb/APAP/Caff 50-325-40Mg [Fioricet 50-325-40] 1 tab PO Q8H PRN PRN Reason: Migraine Headache Amitriptyline HCl [Elavil] 25 mg PO HS Metoclopramide [Reglan] 5 mg PO AC-TID Furosemide [Lasix] 20 - 40 mg PO DAILY PRN PRN Reason: Edema traMADol HCL 50 mg PO BID PRN PRN Reason: Pain rOPINIRole HCL 4 mg PO TID Esomeprazole Magnesium [NexIUM] 40 mg PO BID Gabapentin 300 mg PO TID Ondansetron [Zofran] 4 - 8 mg PO Q8H PRN PRN Reason: Nausea Nicotine 21Mg/24Hr Patch [Habitrol] 1 patch TRANSDERM DAILY Discontinued Ibuprofen [Motrin] 800 mg PO Q8H PRN PRN Reason: Pain Discharge Medication List Multivitamins, Thera [Multivitamin (formulary)] 1 tab PO DAILY 06/22/17 [History] Dalfampridine [Dalfampridine ER] 10 mg PO Q12H 06/19/23 [History] Fenofibrate,Micronized [Fenofibrate] 134 mg PO DAILY 06/19/23 [History] Furosemide [Lasix] 20 - 40 mg PO DAILY PRN 06/19/23 [History] Rivaroxaban [Xarelto] 20 mg PO W/SUPPER 06/19/23 [History] Albuterol Inhaler [Ventolin Hfa Inhaler] 2 puff INHALATION RT-Q6H PRN 07/07/24 [History] Amitriptyline HCl [Elavil] 25 mg PO HS 07/07/24 [History] Butalb/APAP/Caff 50-325-40Mg [Fioricet 50-325-40] 1 tab PO Q8H PRN 07/07/24 [History] Esomeprazole Magnesium [NexIUM] 40 mg PO BID 07/07/24 [History] Gabapentin 300 mg PO TID 07/07/24 [History] Metoclopramide [Reglan] 5 mg PO AC-TID 07/07/24 [History] Nicotine 21Mg/24Hr Patch [Habitrol] 1 patch TRANSDERM DAILY 07/07/24 [History] Ondansetron [Zofran] 4 - 8 mg PO Q8H PRN 07/07/24 [History] Patient Own Pump 0 bag 07/07/24 [History] rOPINIRole HCL 4 mg PO TID 07/07/24 [History] traMADol HCL 50 mg PO BID PRN 07/07/24 [History] Follow up Appointment(s)/Referral(s): Salma Sebastian MD [STAFF PHYSICIAN] - 2 Weeks [facility] [NON-STAFF] - Saji Mclain DO [Primary Care Provider] - 1-2 days Patient Instructions/Handouts: Hiatal Hernia (DC), Gastritis (ED), Esophagitis (DC) Activity/Diet/Wound Care/Special Instructions: Please follow up with your PCP and gastroenterology within 1 week. Patient needs wheelchair at time of discharge to assist with ADLs that cannot be managed with a cane or walker secondary to multiple sclerosis and unsteady gait. Patient can self propel the chair. Discharge Disposition: HOME SELF-CARE
--- NOTE | 2024-07-11 16:47 | P.PN ---
Subjective Progress Note Date: 07/11/24 Principal diagnosis: Dysphagia, GERD This is a pleasant 69-year-old white female who presented to the emergency department yesterday with complaints of coughing up blood. She states that few weeks ago she was eating chicken and swallowed a chicken bone which felt like it got lodged in the back of her throat or esophagus. She states that she has been coughing quite a bit and over the last couple weeks she was able to cough up the chicken bone. Since that time she continues to have coughing and yesterday she coughed up what appeared to be a blood clot. She was concerned and came into the emergency department for further evaluation. She was found to be hypoxic in the emergency department with an oxygen saturation at 83%. She he has a history of COPD, pulmonary embolism on Xarelto, fibromyalgia, GERD, seizure disorder and sleep apnea. She denies any abdominal pain, does state that she has quite a bit of difficulty with keeping food down. States that after she eats a lot of times she has to sit up for quite some time otherwise she will will bring her food rig ht back up. She denies any bloody emesis. Denies blood in her stool or black stool. She has had no previous upper endoscopy with Dr. Alvarado in June 2023 for dysphagia. EGD had findings of small hiatal hernia and retained food in the stomach possibly secondary to gastroparesis. 07/09/2024 Patient seen and examined today as a follow-up. States that she has quite a bit of acid reflux after eating breakfast. No vomiting. 06/11/2024 Patient seen and examined today as a follow-up. She is sitting up in the bedside chair and ate almost all of her breakfast. Denied any vomiting or choking. No abdominal pain. Yesterday she underwent upper endoscopy with findings of moderate size hiatal hernia, distal esophageal strictures status post dilation, linear superficial erosions consistent with ulcerative esophagitis status post biopsies. Objective - Vital Signs Vital signs: Vital Signs Temp 97.8 F 07/11/24 07:32 Pulse 88 07/11/24 08:27 Resp 17 07/11/24 07:32 BP 136/62 07/11/24 07:32 Pulse Ox 97 07/11/24 08:18 FiO2 Intake & Output 07/10/24 07/11/24 07/11/24 18:59 06:59 18:59 Intake Total 340 360 Balance 340 360 Intake: IV 100 Oral 240 360 Other: Voiding Method Toilet Toilet # Voids 1 2 - Exam General appearance: The patient is alert, oriented, appears in no acute distress. HET: Head is normocephalic and atraumatic. Conjunctiva pink. Sclera anicteric. Neck: Supple without lymphadenopathy. Abdomen: Soft, nontender, nondistended with bowel sounds. No guarding or rigidity. Extremities: Normal skin color and turgor. No pedal edema Skin: No rashes, no jaundice Neurological: No focal deficits. Alert and oriented. - Labs CBC & Chem 7: 07/11/24 07:01 07/11/24 07:01 Labs: Abnormal Lab Results - Last 24 Hours (Table) 07/10/24 07/11/24 07/11/24 Range/Units 04:36 07:01 07:01 WBC 13.22 H (4.50-10.00) X 10*3/uL RBC 3.22 L 3.52 L (4.10-5.20) X 10*6/uL Hgb 7.4 L 8.1 L (12.0-15.0) g/dL Hct 25.1 L 27.3 L (37.2-46.3) % MCV 78.0 L 77.5 L (80.0-97.0) FL MCH 23.0 L 22.9 L (27.0-32.0) pg MCHC 29.5 L 29.6 L (32.0-37.0) g/dL RDW 17.1 H 16.2 H (11.5-14.5) % Plt Count 445 H 491 H (140-440) X 10*3/uL Immature Gran # 0.12 H (0.00-0.04) X 10*3/uL Neutrophils # 9.75 H (1.80-7.70) X 10*3/uL Monocytes # 1.24 H (0.20-1.00) X 10*3/uL Eosinophils # 0 L (0.04-0.35) X 10*3/uL NRBC/100 WBC Diff 0.04 H (0.00-0.01) X 10*3/uL Carbon Dioxide 36 H (22-30) mmol/L BUN 22 H (7-17) mg/dL Glucose 127 H (74-99) mg/dL Calcium 8.1 L (8.4-10.2) mg/dL Assessment and Plan (1) Dysphagia Narrative/Plan: 69-year-old female with a history of dysphagia presented to the emergency department after having coughed up blood. States she swallowed a chicken bone a few weeks ago and that it had been lodged for sometime in her throat which she was able to cough it out about a week ago. Since that time she has had continual coughing and yesterday had reported blood clot come out with her coughing. Gastroenterology consulted for possible GI bleed. Does not appear that patient has a GI bleed however she is still complaining of dysphagia and stating that she is unable to keep her food down. Last upper endoscopy with findings of small hiatal hernia and retained food in the stomach that can be seen with gastroparesis in June 2023. CTA is showing large hiatal hernia, dysphagia may be secondary to the hiatal hernia. Discussed with patient GERD or reflux measures. Patient status post EGD with findings of moderate size hiatal hernia, distal esophageal stricture status post balloon dilation and superficial erosions with thickened esophagus folds and distal esophagus consistent with ulcerative esophagitis status post biopsies to rule out as center for lack esophagitis versus reflux esophagitis. Patient to follow-up with gastroenterology in 1 to 2 weeks for biopsy results. Status: Acute Code(s): R13.10 - DYSPHAGIA, UNSPECIFIED SNOMED Code(s): 78146611 (2) Hiatal hernia Status: Acute Code(s): K44.9 - DIAPHRAGMATIC HERNIA WITHOUT OBSTRUCTION OR GANGRENE SNOMED Code(s): 84087007 (3) Hemoptysis Status: Acute Code(s): R04.2 - HEMOPTYSIS SNOMED Code(s): 88420299 (4) History of pulmonary embolism Status: Acute Code(s): Z86.711 - PERSONAL HISTORY OF PULMONARY EMBOLISM SNOMED Code(s): 453149131 Plan: 1. Continue symptomatic and supportive care 2. Discussed with patient antireflux measures 3. May resume anticoagulation 4. Protonix 40 mg twice a day 5. Antiemetics as needed 6. Regular diet 7. Patient is status post EGD. Recommend follow-up with gastroenterology in 1 to 2 weeks for biopsy results Thank you for this consultation patient is cleared from gastroenterology for discharge. Dr. Karl Sebastian I agree with the dictator's note, documented as a scribe by Celeste Hudson.
== END 2024-07-11 13:00 | disposition home or self-care (01) ==
LOC: EC 07:21 → 6NMEDSUR 10:53
PROVIDERS: ADMIT Internal Medicine; ATTEND Internal Medicine
DX: J96.01 Acute respiratory failure with hypoxia (principal); K92.0 Hematemesis; D62 Acute posthemorrhagic anemia; K22.2 Esophageal obstruction; K22.10 Ulcer of esophagus without bleeding; D72.828 Other elevated white blood cell count; J44.1 Chronic obstructive pulmonary disease with (acute) exacerbation; K44.9 Diaphragmatic hernia without obstruction or gangrene; E87.1 Hypo-osmolality and hyponatremia; R33.9 Retention of urine, unspecified; R32 Unspecified urinary incontinence; F17.210 Nicotine dependence, cigarettes, uncomplicated; G35 Multiple sclerosis; G47.30 Sleep apnea, unspecified; G25.81 Restless legs syndrome; G89.29 Other chronic pain; M79.7 Fibromyalgia; G40.909 Epilepsy, unspecified, not intractable, without status epilepticus; G43.909 Migraine, unspecified, not intractable, without status migrainosus; R53.82 Chronic fatigue, unspecified; R60.0 Localized edema; M48.00 Spinal stenosis, site unspecified; F32.A Depression, unspecified; Z79.891 Long term (current) use of opiate analgesic; Z79.01 Long term (current) use of anticoagulants; Z79.899 Other long term (current) drug therapy; Z86.711 Personal history of pulmonary embolism
CPT/HCPCS: 96376 ×4; 96375 ×3; 96374; 99285; 36415; 94640 ×9; 94760 ×2; 93005; 97162; 97166; 85379; 88305; 83880; 80053; 80048 ×3; 83735; 84484; 85025 ×5; 85610; 85730; 88313; 87635; 71046; 71275; 43239; 43249; G0378 ×5; S4990 ×4; J1940 ×3; J2405 ×3; J2003; J2704; Q9967; J2919 ×3; J2470; C1726

== ENCOUNTER 2024-07-19 21:03 | Emergency (ER) | payer MEDICARE ==
--- NOTE | 2024-07-19 21:39 | ED ---
General Adult HPI - General Chief complaint: Upper Respiratory Infection Stated complaint: Couging up Asknm-Eybm-diruk thinners Time Seen by Provider: 07/19/24 21:11 Source: patient Mode of arrival: wheelchair - History of Present Illness Initial comments: This is a 69-year-old female with past medical history PE on Xarelto, multiple sclerosis presenting today for COPD, presenting for hemoptysis. Patient states she was here recently, discharged 1 week ago for similar. Thought it had all started when she swallowed check about chicken bone in May though did not experience any hematemesis hemoptysis directly after this. Today had 1 episode of hemoptysis with blood that filled her mouth. She states it is darker than it was when she had been here previously. Just prior to arrival had 1 and a second episode of hemoptysis that again felt her mouth. Denies bloody nose. Endorses pain across her chest that worsens with coughing. States this has been going for the last 2 months. Endorses generalized weakness and lightheadedness with ambulation. Endorses associated shortness of breath. Last was Xarelto was tonight. Had upper GI study performed when she was here 2 weeks ago which did not show any active bleeding. No fevers or chills. Endorses abdominal bloating but did have 4 bowel movements today. Unsure of what their consistency and color was. Denies hematuria. Has not recently swallowed anything sharp or irritating. - Related Data Home Medications Medication Instructions Recorded Confirmed Multivitamins, Thera [Multivitamin 1 tab PO DAILY 06/22/17 07/07/24 (formulary)] Dalfampridine [Dalfampridine ER] 10 mg PO Q12H 06/19/23 07/07/24 Fenofibrate,Micronized 134 mg PO DAILY 06/19/23 07/07/24 [Fenofibrate] Furosemide [Lasix] 20 - 40 mg PO DAILY PRN 06/19/23 07/07/24 Rivaroxaban [Xarelto] 20 mg PO W/SUPPER 06/19/23 07/07/24 Albuterol Inhaler [Ventolin Hfa 2 puff INHALATION RT-Q6H PRN 07/07/24 07/07/24 Inhaler] Amitriptyline HCl [Elavil] 25 mg PO HS 07/07/24 07/07/24 Butalb/APAP/Caff 50-325-40Mg 1 tab PO Q8H PRN 07/07/24 07/07/24 [Fioricet 50-325-40] Esomeprazole Magnesium [NexIUM] 40 mg PO BID 07/07/24 07/07/24 Gabapentin 300 mg PO TID 07/07/24 07/07/24 Metoclopramide [Reglan] 5 mg PO AC-TID 07/07/24 07/07/24 Nicotine 21Mg/24Hr Patch [Habitrol] 1 patch TRANSDERM DAILY 07/07/24 07/07/24 Ondansetron [Zofran] 4 - 8 mg PO Q8H PRN 07/07/24 07/07/24 Patient Own Pump 0 bag 07/07/24 rOPINIRole HCL 4 mg PO TID 07/07/24 07/07/24 traMADol HCL 50 mg PO BID PRN 07/07/24 07/07/24 Allergies Allergy/AdvReac Type Severity Reaction Status Date / Time No Known Allergies Allergy Verified 07/19/24 21:08 Review of Systems ROS Statement: Those systems with pertinent positive or pertinent negative responses have been documented in the HPI. ROS Other: All systems not noted in ROS Statement are negative. Past Medical History Past Medical History: Fibromyalgia, GERD/Reflux, Neurologic Disorder, Pulmonary Embolus (PE), Seizure Disorder, Sleep Apnea/CPAP/BIPAP Additional Past Medical History / Comment(s): Multiple sclerosis, some dysphagia at times, incontinent or urine/bowels at times, generalized nerve pain, migraines, spinal stenosis, dx colitis at age 15 yrs, frequent falls, hypoglyc emia, chronic fatigue syndrome, last seizure around 2019 History of Any Multi-Drug Resistant Organisms: None Reported Past Surgical History: Appendectomy, Back Surgery, Cholecystectomy, Hysterectomy Additional Past Surgical History / Comment(s): spinal cord stimulator surgically placed in December 2012, morphine pain pump placed, laparoscopic surgery for fibroids Past Anesthesia/Blood Transfusion Reactions: Previous Problems w/ Anesthesia, Motion Sickness Additional Past Anesthesia/Blood Transfusion Reaction / Comment(s): "hard to wake up and my blood pressure gets very low" Past Psychological History: Depression Smoking Status: Current every day smoker Past Alcohol Use History: Rare Past Drug Use History: None Reported - Past Family History Father Family Medical History: Cancer Brother(s) Family Medical History: Cancer General Exam - General Exam Comments Initial Comments: PE: CONSTITUTIONAL: [no apparent distress, well appearing] SKIN: [warm, dry, no jaundice, hives or petechiae] EYES:[ pupils are equally round, extraocular movements intact without nystagmus, clear conjunctiva, non-icteric sclera] HENT: [normocephalic, atraumatic, moist mucus membranes, oropharynx clear without exudates] NECK: , [Full range of motion, normal appearance] PULMONARY: [clear to auscultation without wheezes, rhonchi, or rales, normal excursion, no accessory muscle use and no stridor] CARDIOVASCULAR:[ regular rate, rhythm, normal S1 and S2. No appreciated murmurs, rubs or gallops. Strong radial pulses with intact distal perfusion. No lower extremity edema] GASTROINTESTINAL: [soft, active bowel sounds throughout, non-tender, non- distended, no palpable masses, no rebound or guarding. No hepatosplenomegaly] GENITOURINARY: MUSCULOSKELETAL: [Extremities have no gross deformity, no edema, redness, or swelling. No calf swelling ] NEUROLOGIC: [_a/o x 3, GCS 15, normal mentation and speech. Moves all extremities x 4 without motor or sensory deficit] PSYCHIATRIC:[ _normal mood and affect, thought process is clear and linear] Course Vital Signs 07/19/24 07/19/24 07/19/24 21:05 21:31 23:41 Temperature 98.3 F Pulse Rate 100 96 92 Respiratory 18 18 20 Rate Blood Pressure 136/60 148/79 116/59 O2 Sat by Pulse 94 L 97 99 Oximetry EKG Findings - EKG Comments: EKG Findings:: Rhythm, 91 bpm, LA interval 136 ms, QRS duration 75 ms, QT/QTc 361/409 ms, normal axis, no ST elevations or depressions, no arrhythmia Medical Decision Making - Medical Decision Making Was pt. sent in by a medical professional or institution (, PA, SENIOR PHP WEB DEVELOPER, urgent care, hospital, or snf...) When possible be specific @ -[No] Did you speak to anyone other than the patient for history (EMS, parent, family, police, friend...)? What history was obtained from this source @ -[No] Did you review nursing and triage notes (agree or disagree)? Why? @ -[I reviewed and agree with nursing and triage notes] Were old charts reviewed (outside hosp., previous admission, EMS record, old EKG, old radiological studies, urgent care reports/EKG's, snf records)? Report findings @ -[No old charts were reviewed] Differential Diagnosis (chest pain, altered mental status, abdominal pain women, abdominal pain men, vaginal bleeding, weakness, fever, dyspnea, syncope, headache, dizziness, GI bleed, back pain, seizure, CVA, palpatations, mental health, musculoskeletal)? @ -[not applicable] EKG interpreted by me (3pts min.). @ -[As above] X-rays interpreted by me (1pt min.). @ -[None done] CT interpreted by me (1pt min.). @ -[None done] U/S interpreted by me (1pt. min.). @ -[None done] What testing was considered but not performed or refused? (CT, X-rays, U/S, labs)? Why? @ -[None] What meds were considered but not given or refused? Why? @ -[None] Did you discuss the management of the patient with other professionals (professionals i.e. DrGlenn, PA, SENIOR PHP WEB DEVELOPER, lab, RT, psych nurse, social media content specialist, boring mill set up operator vertical, teacher, air force senior officer, window caser)? Give summary @ -[No] Was smoking cessation discussed for >3mins.? @ -[No] Was critical care preformed (if so, how long)? @ -[No] Were there social determinants of health that impacted care today? How? (Lela elessness, low income, unemployed, alcoholism, drug addiction, transportation, low edu. Level, literacy, decrease access to med. care, care home, rehab)? @ -[No] Was there de-escalation of care discussed even if they declined (Discuss DNR or withdrawal of care, Hospice)? @ -[No] What co-morbidities impacted this encounter? (DM, HTN, Smoking, COPD, CAD, Cancer, CVA, ARF, Chemo, Hep., AIDS, mental health diagnosis, sleep apnea, morbid obesity)? @ -[None] Was patient admitted / discharged? Hospital course, mention meds given and route, prescriptions, significant lab abnormalities, going to OR and other pertinent info. @ -[hospital course] Patient is a 69 y/o female with PMH smoking, prior PE on presenting for hemoptysis x 2. Recently admitted for similar. At that time had a scope done upper GI scope done which did not show any signs of bleeding. On my assessment patient well-appearing in no acute distress. No conjunctival pallor. No blood in the oropharynx. Lungs are clear to auscultation bilaterally. Normal S1-S2 on cardiac exam. Discussed with plan patient plan for CT PE and GI bleed study as though this had been done during recent admission it is possible they were small pulmonary emboli that were identified on prior CT PE study and could now be identified. Additionally plan for pain control. Patient agreeable with plan Atrial fibrillation on Eliquis, prior CVA, GERD, hypertension reviewed patient's labs, mild leukocytosis white blood cell 11.1, hemoglobin 8.5 however on 07/11/2024 was 8.1 so this is increased from prior, lactic 2.5, otherwise labs reassuring. CT PE study and GI bleed negative for acute process Undiagnosed new problem with uncertain prognosis? @ -[No] Drug Therapy requiring intensive monitoring for toxicity (Heparin, Nitro, Insulin, Cardizem)? @ -[No] Were any procedures done? @ -[No] Diagnosis/symptom? @ -[default] Acute, or Chronic, or Acute on Chronic? @ -[default] Uncomplicated (without systemic symptoms) or Complicated (systemic symptoms)? @ -[default] Side effects of treatment? @ -[No] Exacerbation, Progression, or Severe Exacerbation? @ -[No] Poses a threat to life or bodily function? How? (Chest pain, USA, GA, pneumonia, PE, COPD, DKA, ARF, appy, cholecystitis, CVA, Diverticulitis, Homicidal, Suicidal, threat to staff... and all critical care pts) @ -[No] - Lab Data Result diagrams: 07/19/24 21:54 07/19/24 21:54 Lab Results 07/19/24 07/19/24 07/19/24 Range/Units 21:47 21:54 21:54 WBC 11.1 H (3.8-10.6) k/uL RBC 3.68 L (3.80-5.40) m/uL Hgb 8.5 L (11.4-16.0) gm/dL Hct 27.1 L (34.0-46.0) % MCV 73.7 L (80.0-100.0) fL MCH 23.2 L (25.0-35.0) pg MCHC 31.5 (31.0-37.0) g/dL RDW 16.4 H (11.5-15.5) % Plt Count 396 (150-450) k/uL MPV 7.6 Neutrophils % 74 % Lymphocytes % 15 % Monocytes % 8 % Eosinophils % 2 % Basophils % 0 % Neutrophils # 8.2 H (1.3-7.7) k/uL Lymphocytes # 1.6 (1.0-4.8) k/uL Monocytes # 0.9 (0-1.0) k/uL Eosinophils # 0.2 (0-0.7) k/uL Basophils # 0.1 (0-0.2) k/uL Hypochromasia Marked Poikilocytosis Slight Anisocytosis Slight Microcytosis Slight PT 12.9 H (10.0-12.5) sec INR 1.2 H (<1.2) APTT 27.4 (22.0-30.0) sec Sodium (137-145) mmol/L Potassium (3.5-5.1) mmol/L Chloride (98-107) mmol/L Carbon Dioxide (22-30) mmol/L Anion Gap mmol/L BUN (7-17) mg/dL Creatinine (0.52-1.04) mg/dL Est GFR (CKD-EPI)AfAm (>60 ml/min/1.73 sqM) Est GFR (CKD-EPI)NonAf (>60 ml/min/1.73 sqM) Glucose (74-99) mg/dL Plasma Lactic Acid Dionicio (0.7-2.0) mmol/L Calcium (8.4-10.2) mg/dL Total Bilirubin (0.2-1.3) mg/dL AST (14-36) U/L ALT (4-34) U/L Alkaline Phosphatase (38-126) U/L Troponin I (0.000-0.034) ng/mL NT-Pro-B Natriuret Pep pg/mL Total Protein (6.3-8.2) g/dL Albumin (3.5-5.0) g/dL Amylase (30-110) U/L Lipase (23-300) U/L Blood Type B Positive Blood Type Confirm Blood Type Recheck No Previous Record Bld Type Recheck Status CABO Indicated Antibody Screen NEGATIVE Spec Expiration Date 07/22/2024235307/19/24 07/19/24 07/19/24 Range/Units 21:54 21:54 21:54 WBC (3.8-10.6) k/uL RBC (3.80-5.40) m/uL Hgb (11.4-16.0) gm/dL Hct (34.0-46.0) % MCV (80.0-100.0) fL MCH (25.0-35.0) pg MCHC (31.0-37.0) g/dL RDW (11.5-15.5) % Plt Count (150-450) k/uL MPV Neutrophils % % Lymphocytes % % Monocytes % % Eosinophils % % Basophils % % Neutrophils # (1.3-7.7) k/uL Lymphocytes # (1.0-4.8) k/uL Monocytes # (0-1.0) k/uL Eosinophils # (0-0.7) k/uL Basophils # (0-0.2) k/uL Hypochromasia Poikilocytosis Anisocytosis Microcytosis PT (10.0-12.5) sec INR (<1.2) APTT (22.0-30.0) sec Sodium 136 L (137-145) mmol/L Potassium 3.6 (3.5-5.1) mmol/L Chloride 103 (98-107) mmol/L Carbon Dioxide 30 (22-30) mmol/L Anion Gap 3 mmol/L BUN 16 (7-17) mg/dL Creatinine 0.64 (0.52-1.04) mg/dL Est GFR (CKD-EPI)AfAm >90 (>60 ml/min/1.73 sqM) Est GFR (CKD-EPI)NonAf >90 (>60 ml/min/1.73 sqM) Glucose 248 H (74-99) mg/dL Plasma Lactic Acid Dionicio 2.5 H* (0.7-2.0) mmol/L Calcium 8.3 L (8.4-10.2) mg/dL Total Bilirubin 0.3 (0.2-1.3) mg/dL AST 22 (14-36) U/L ALT 22 (4-34) U/L Alkaline Phosphatase 80 (38-126) U/L Troponin I <0.012 (0.000-0.034) ng/mL NT-Pro-B Natriuret Pep 298 pg/mL Total Protein 5.8 L (6.3-8.2) g/dL Albumin 3.6 (3.5-5.0) g/dL Amylase 32 (30-110) U/L Lipase 114 (23-300) U/L Blood Type Blood Type Confirm Blood Type Recheck Bld Type Recheck Status Antibody Screen Spec Expiration Date 07/19/24 Range/Units 21:57 WBC (3.8-10.6) k/uL RBC (3.80-5.40) m/uL Hgb (11.4-16.0) gm/dL Hct (34.0-46.0) % MCV (80.0-100.0) fL MCH (25.0-35.0) pg MCHC (31.0-37.0) g/dL RDW (11.5-15.5) % Plt Count (150-450) k/uL MPV Neutrophils % % Lymphocytes % % Monocytes % % Eosinophils % % Basophils % % Neutrophils # (1.3-7.7) k/uL Lymphocytes # (1.0-4.8) k/uL Monocytes # (0-1.0) k/uL Eosinophils # (0-0.7) k/uL Basophils # (0-0.2) k/uL Hypochromasia Poikilocytosis Anisocytosis Microcytosis PT (10.0-12.5) sec INR (<1.2) APTT (22.0-30.0) sec Sodium (137-145) mmol/L Potassium (3.5-5.1) mmol/L Chloride (98-107) mmol/L Carbon Dioxide (22-30) mmol/L Anion Gap mmol/L BUN (7-17) mg/dL Creatinine (0.52-1.04) mg/dL Est GFR (CKD-EPI)AfAm (>60 ml/min/1.73 sqM) Est GFR (CKD-EPI)NonAf (>60 ml/min/1.73 sqM) Glucose (74-99) mg/dL Plasma Lactic Acid Dionicio (0.7-2.0) mmol/L Calcium (8.4-10.2) mg/dL Total Bilirubin (0.2-1.3) mg/dL AST (14-36) U/L ALT (4-34) U/L Alkaline Phosphatase (38-126) U/L Troponin I (0.000-0.034) ng/mL NT-Pro-B Natriuret Pep pg/mL Total Protein (6.3-8.2) g/dL Albumin (3.5-5.0) g/dL Amylase (30-110) U/L Lipase (23-300) U/L Blood Type Blood Type Confirm B Positive Blood Type Recheck Bld Type Recheck Status Antibody Screen Spec Expiration Date Disposition Referrals: Saji Mclain DO [Primary Care Provider] - 1-2 days
[2024-07-19] MEDS: SODIUM CHLORIDE 0.9% 1,000 ML IV STA (21:58)
[2024-07-19] MEDS: ONDANSETRON 4 MG/2 ML VIAL IVP STA (21:59)
[2024-07-19] MEDS: PANTOPRAZOLE 40 MG/10 ML VIAL IVP STA (22:01)
[2024-07-19 22:33] LABS: Anisocytosis Slight; Basophils # (A) 0.1 k/uL (0-0.2); Basophils % (A) 0 %; Eosinophils # (A) 0.2 k/uL (0-0.7); Eosinophils % (A) 2 %; HCT 27.1 % (34.0-46.0); HGB 8.5 gm/dL (11.4-16.0); Hypochromasia Marked; Lymphocytes # (A) 1.6 k/uL (1.0-4.8); Lymphocytes % (A) 15 %; MCH 23.2 pg (25.0-35.0); MCHC 31.5 g/dL (31.0-37.0); MCV 73.7 fL (80.0-100.0); Mean Platelet Volume 7.6; Microcytosis Slight; Monocytes # (A) 0.9 k/uL (0-1.0); Monocytes % (A) 8 %; Neutrophils # (A) 8.2 k/uL (1.3-7.7); Neutrophils % (A) 74 %; Platelet Count 396 k/uL (150-450); Poikilocytosis Slight; RBC 3.68 m/uL (3.80-5.40); RDW 16.4 % (11.5-15.5); WBC 11.1 k/uL (3.8-10.6)
[2024-07-19 22:38] LABS: INR 1.2 (<1.2); Partial Thromboplastin Time 27.4 sec (22.0-30.0); Prothrombin Time 12.9 sec (10.0-12.5)
[2024-07-19 22:54] LABS: ALT 22 U/L (4-34); AST 22 U/L (14-36); African American GFR (CKD) >90 (>60 ml/min/1.73 sqM); Albumin 3.6 g/dL (3.5-5.0); Alkaline Phosphatase 80 U/L (38-126); Amylase 32 U/L (30-110); Anion Gap 3 mmol/L; Blood Urea Nitrogen 16 mg/dL (7-17); Calcium 8.3 mg/dL (8.4-10.2); Carbon Dioxide 30 mmol/L (22-30); Chloride 103 mmol/L (98-107); Glucose 248 mg/dL (74-99); Lipase 114 U/L (23-300); Non-African American GFR(CKD) >90 (>60 ml/min/1.73 sqM); Potassium 3.6 mmol/L (3.5-5.1); Sodium 136 mmol/L (137-145); Total Bilirubin 0.3 mg/dL (0.2-1.3); Total Protein 5.8 g/dL (6.3-8.2)
[2024-07-19 23:03] LABS: NT-Pro-B-Type Natriuretic Pept 298 pg/mL
--- NOTE | 2024-07-19 23:35 | CT ---
EXAMINATION TYPE: CT chest angio for PE DATE OF EXAM: 07/19/2024 COMPARISON: Prior CTA chest July 07, 2024 HISTORY: Patient is coming to facility with complaints of continued bleeding from her throat when she coughs. Patient states that she was discharged 1 week ago for the same thing. CT DLP: 1053.8 mGycm. Automated Exposure Control for Dose Reduction was Utilized. CONTRAST: CTA scan of the thorax is performed with IV Contrast, patient injected with 100 mL of Isovue 370, pul monary embolism protocol. MIP Images are created on CT scanner and reviewed. FINDINGS: LUNGS: Mild underlying emphysematous change is redemonstrated. There is respiratory motion compromise making evaluation suboptimal particularly for subcentimeter nodules. Dependent opacity along the rhett ateral upper and lower lobes suggest mild edema. No focal consolidation. No pleural effusion or pneum othorax. MEDIASTINUM: Slightly suboptimal study with most dense contrast in the SVC. There is however no convi ncing CT evidence for acute pulmonary embolism. Enhancement of the aorta without aneurysm or dissecti on. Persistent left-sided arch with aberrant right brachiocephalic artery running posterior to the es ophagus which is normal variant. OTHER: Moderate to large size hiatal hernia is redemonstrated. Please refer to same day CT abdomen an d pelvis report for complete details in the upper abdomen IMPRESSION: 1. Slightly suboptimal study without CT evidence for acute pulmonary embolism. 2. Mild emphysematous change with dependent opacity in the bilateral upper and lower lobes could refl ect edema and/or less likely acute infiltrates. [facility], , 07/19/2024 11:32 PM
--- NOTE | 2024-07-19 23:39 | CT ---
EXAMINATION TYPE: CT abdomen pelvis w con DATE OF EXAM: 07/19/2024 HISTORY: Patient is coming to facility with complaints of continued bleeding from her throat when she coughs. Patient states that she was discharged 1 week ago for the same thing. Epigastric pain. CT DLP: 1053.8mGycm Automated Exposure Control for Dose Reduction was Utilized. CONTRAST: CT scan of the abdomen and pelvis is performed with IV Contrast, patient injected with 100 mL of Isov ue 370. COMPARISON: None. FINDINGS: LUNG BASES: Please refer to same day CT chest report for complete details in the lung bases. LIVER/GB: Cholecystectomy clips are noted.. PANCREAS: No significant abnormality is seen. SPLEEN: No significant abnormality is seen. ADRENALS: No significant abnormality is seen. KIDNEYS: No significant abnormality is seen. BOWEL: Moderate to large size hiatal hernia is redemonstrated. No abnormal small or large bowel dilat ation. UTERUS/ADNEXA: Uterus is surgically absent. LYMPH NODES: No greater than 1cm abdominal or pelvic lymph nodes are appreciated. OSSEOUS STRUCTURES: Slight grade 1 anterolisthesis L4 and L5 with advanced disc space narrowing at th is level. Vacuum disc phenomenon at L5-S1 level. Multilevel facet arthropathy lower lumbar spine. Enh ancing lower lumbar nerve root is nonspecific finding. OTHER: Left anterior wall stimulator device is present. Tiny fat-containing umbilical hernia. Atheros clerotic and ectatic abdominal aorta measuring up to 2.5 cm axial image 41. No Greater than 3.0 cm an eurysm. Mild skin thickening in the anterior wall overlying the pelvis. IMPRESSION: No significant acute finding is seen to account for patient's clinical symptoms of epigas tric pain. Moderate to large size hiatal hernia is redemonstrated. [facility], , 07/19/2024 11:36 PM
[2024-07-19] MEDS: HYDROmorphone 1 MG/ML 1 ML SYRINGE IVP STA (23:47)
[2024-07-20 04:50] VITALS: BP 124/74; PULSE 77; RESP 16; TEMP 98.4
== END 2024-07-20 04:44 | disposition left against medical advice (07) ==
LOC: EC 21:03
DX: J06.9 Acute upper respiratory infection, unspecified (principal); F17.200 Nicotine dependence, unspecified, uncomplicated; Z53.29 Procedure and treatment not carried out because of patient's decision for other reasons
CPT/HCPCS: 36415 ×2; 93005; 86900; 86901; 83880; 80053; 82150; 83605; 83690; 84484; 85025; 85610; 85730; 86850; 71275; 74177; 99284; 96374; 96375; 96361 ×3; J2405; Q9967; J2470

== ENCOUNTER 2024-10-16 12:31 | Emergency (ER) | payer OTHER ==
--- NOTE | 2024-10-16 13:40 | ED ---
GI Bleed HPI - General Chief complaint: GI Bleed Stated complaint: Blood in stool, vomiting Time Seen by Provider: 10/16/24 12:46 Source: patient, RN notes reviewed, old records reviewed, Caregiver Mode of arrival: wheelchair Limitations: no limitations - History of Present Illness Initial comments: This is a 6-year-old female to the ER for evaluation of suspected acute GI bleed with black stools patient herself maybe thought she vomited some blood but has no complaints here in the ER MD complaint: blood streaked emesis, blood streaked stool Severity scale (1-10): 2 Consistency: constant Improves with: none, bowel movement Context: history of GI bleed - Related Data Home Medications Medication Instructions Recorded Confirmed Dalfampridine [Dalfampridine ER] 10 mg PO Q12H 06/19/23 10/16/24 Fenofibrate,Micronized 134 mg PO DAILY 06/19/23 10/16/24 [Fenofibrate] Furosemide [Lasix] 20 mg PO TID 06/19/23 10/16/24 Rivaroxaban [Xarelto] 20 mg PO DAILY 06/19/23 10/16/24 Albuterol Inhaler [Ventolin Hfa 1 puff INHALATION RT-Q4H PRN 07/07/24 10/16/24 Inhaler] Amitriptyline HCl [Elavil] 25 mg PO HS 07/07/24 10/16/24 Butalb/APAP/Caff 50-325-40Mg 1 tab PO Q8H PRN 07/07/24 10/16/24 [Fioricet 50-325-40] Esomeprazole Magnesium [NexIUM] 40 mg PO BID 07/07/24 10/16/24 Gabapentin 300 mg PO TID 07/07/24 10/16/24 Nicotine 21Mg/24Hr Patch [Habitrol] 1 patch TRANSDERM DAILY 07/07/24 10/16/24 Ondansetron [Zofran] 4 - 8 mg PO Q8H PRN 07/07/24 10/16/24 Patient Own Pump 0 bag 07/07/24 rOPINIRole HCL 4 mg PO BID 07/07/24 10/16/24 traMADol HCL 50 mg PO BID PRN 07/07/24 10/16/24 Ammonium Lactate Lotion 1 applic TOPICAL DAILY 10/16/24 10/16/24 [Lac-Hydrin 12% Lotion] Ascorbic Acid [Vitamin C] 500 mg PO DAILY 10/16/24 10/16/24 Cholecalciferol [Vitamin D3 (125 125 mcg PO DAILY 10/16/24 10/16/24 Mcg = 5000 Iu)] Ferrous Sulfate [Feosol] 325 mg PO DAILY 10/16/24 10/16/24 Fluticasone Nasal [place] [Flonase 1 spray EA NOSTRIL BID PRN 10/16/24 10/16/24 Nasal [place]] Fluticasone/Umeclidin/Vilanter 1 puff INHALATION RT-DAILY 10/16/24 10/16/24 [Trelegy Ellipta 200-62.5-25] Ibuprofen [Motrin Ib] 200 - 400 mg PO Q6H PRN 10/16/24 10/16/24 Multivit-Min/Iron/Folic/Lutein 1 tab PO DAILY 10/16/24 10/16/24 [Centrum Silver Women Tablet] Ondansetron Odt [Zofran Odt] 4 mg SL Q8H PRN 10/16/24 10/16/24 SILVER sulfADIAZINE CREAM 1 applic TOPICAL DAILY PRN 10/16/24 10/16/24 [Silvadene Cream] guaiFENesin [guaiFENesin Oral 400 mg PO DIRECTED PRN 10/16/24 10/16/24 Solution] Allergies Allergy/AdvReac Type Severity Reaction Status Date / Time No Known Allergies Allergy Verified 10/16/24 13:08 Review of Systems ROS Statement: Those systems with pertinent positive or pertinent negative responses have been documented in the HPI. ROS Other: All systems not noted in ROS Statement are negative. Past Medical History Past Medical History: Fibromyalgia, GERD/Reflux, Neurologic Disorder, Pulmonary Embolus (PE), Seizure Disorder, Sleep Apnea/CPAP/BIPAP Additional Past Medical History / Comment(s): Multiple sclerosis, some dysphagia at times, incontinent or urine/bowels at times, generalized nerve pain, migraines, spinal stenosis, dx colitis at age 15 yrs, frequent falls, hypoglycemia, chronic fatigue syndrome, last seizure around 2019 History of Any Multi-Drug Resistant Organisms: None Reported Past Surgical History: Appendectomy, Back Surgery, Cholecystectomy, Hysterectomy Additional Past Surgical History / Comment(s): spinal cord stimulator surgically placed in December 2012, morphine pain pump placed, laparoscopic surgery for fibroids Past Anesthesia/Blood Transfusion Reactions: Previous Problems w/ Anesthesia, Motion Sickness Additional Past Anesthesia/Blood Transfusion Reaction / Comment(s): "hard to wake up and my blood pressure gets very low" Past Psychological History: Depression Smoking Status: Current every day smoker Past Alcohol Use History: Rare Past Drug Use History: None Reported - Past Family History Father Family Medical History: Cancer Brother(s) Family Medical History: Cancer General Exam Limitations: no limitations General appearance: alert, in no apparent distress Head exam: Present: atraumatic, normocephalic, normal inspection Eye exam: Present: normal appearance, PERRL, EOMI. Absent: scleral icterus, conjunctival injection, periorbital swelling ENT exam: Present: normal exam, mucous membranes moist Neck exam: Present: normal inspection. Absent: tenderness, meningismus, lymphadenopathy Respiratory exam: Present: normal lung sounds bilaterally. Absent: respiratory distress, wheezes, rales, rhonchi, stridor Cardiovascular Exam: Present: regular rate, normal rhythm, normal heart sounds. Absent: systolic murmur, diastolic murmur, rubs, gallop, clicks GI/Abdominal exam: Present: soft, normal bowel sounds. Absent: distended, tenderness, guarding, rebound, rigid Extremities exam: Present: normal inspection, full ROM, normal capillary refill. Absent: tenderness, pedal edema, joint swelling, calf tenderness Back exam: Present: normal inspection Neurological exam: Present: alert, oriented X3, CN II-XII intact Psychiatric exam: Present: normal affect, normal mood Skin exam: Present: warm, dry, intact, normal color. Absent: rash Course Vital Signs 10/16/24 10/16/24 12:33 13:50 Temperature 98.8 F Pulse Rate 94 86 Respiratory 16 Rate Blood Pressure 160/82 129/70 O2 Sat by Pulse 93 L 99 Oximetry - Reevaluation(s) Reevaluation #1: 10/16/24 14:20 Medical records reviewed Reevaluation #2: 10/16/24 14:20 Patient has no bloody output here in the ER Reevaluation #3: 10/16/24 14:20 Patient informed of results and questions answered Reevaluation #4: Was pt. sent in by a medical professional or institution (, PA, RIPRAP PLACING SUPERVISOR, urgent ca re, hospital, or usp...) When possible be specific @ -no Did you speak to anyone other than the patient for history (EMS, parent, family, police, friend...)? What history was obtained from this source @ -no Did you review nursing and triage notes (agree or disagree)? Why? @ -agree Are old charts reviewed (outside hosp., previous admission, EMS record, old EKG, old radiological studies, urgent care reports/EKG's, usp records)? Report findings @ -yes Differential Diagnosis (chest pain, altered mental status, abdominal pain women, abdominal pain men, vaginal bleeding, weakness, fever, dyspnea, syncope, headache, dizziness, GI bleed, back pain, seizure, CVA, palpatations, mental health, musculoskeletal)? @ -prior EKG interpreted by me (3pts min.). @ -yes X-rays interpreted by me (1pt min.). @ -yes negative for acute disease CT interpreted by me (1pt min.). @ -no U/S interpreted by me (1pt. min.). @ -no What testing was considered but not performed or refused? (CT, X-rays, U/S, labs)? Why? @ -none What meds were considered but not given or refused? Why? @ -none Did you discuss the management of the patient with other professionals (professionals i.e. , PA, RIPRAP PLACING SUPERVISOR, lab, RT, psych nurse, director social welfare, nurse substance abuse, teacher, parole hearing officer, rifle case repairer)? Give summary @ -no Was smoking cessation discussed for >3mins.? @ -no Was critical care preformed (if so, how long)? @ -no Were there social determinants of health that impacted care today? How? (Homel essness, low income, unemployed, alcoholism, drug addiction, transportation, low edu. Level, literacy, decrease access to med. care, retirement, rehab)? @ -none Was there de-escalation of care discussed even if they declined (Discuss DNR or withdrawal of care, Hospice)? DNR status @ -no What co-morbidities impacted this encounter? (DM, HTN, Smoking, COPD, CAD, Cancer, CVA, ARF, Chemo, Hep., AIDS, mental health diagnosis, sleep apnea, morbid obesity)? @ -none Was patient admitted / discharged? Hospital course, mention meds given and route, prescriptions, significant lab abnormalities, going to OR and other pertinent info. @ - Undiagnosed new problem with uncertain prognosis? @ -no Drug Therapy requiring intensive monitoring for toxicity (Heparin, Nitro, Insulin, Cardizem)? @ -no Were any procedures done? @ -no Diagnosis/symptom? @ - Acute, or Chronic, or Acute on Chronic? @ -Acute Uncomplicated (without systemic symptoms) or Complicated (systemic symptoms)? @ -Complicated Side effects of treatment? @ -no Exacerbation, Progression, or Severe Exacerbation? @ -exacerbation Poses a threat to life or bodily function? How? (Chest pain, USA, [place], pneumonia, PE, COPD, DKA, ARF, appy, cholecystitis, CVA, Diverticulitis, Homicidal, Suicidal, threat to staff... and all critical care pts) @ -yes Reevaluation #5: Differential GI Bleed: Esophageal varices, aortoenteric fistula, Sherrell-Lewis, gastritis, peptic ulcer disease, diverticulosis, inflammatory bowel disease, hemorrhoids, fissure, colitis, malignancy, Meckel's diverticulum, this is not meant to be an all- inclusive list. Medical Decision Making - Medical Decision Making 69 female to the ER with suspected GI bleed. Patient has no other complaints here in the ER no findings of GI bleed and normal, normal - Lab Data Result diagrams: 10/16/24 13:34 10/16/24 13:34 Lab Results 10/16/24 10/16/24 10/16/24 Range/Units 13:34 13:34 13:34 WBC 8.2 (3.8-10.6) k/uL RBC 5.36 (3.80-5.40) m/uL Hgb 12.8 (11.4-16.0) gm/dL Hct 39.9 (34.0-46.0) % MCV 74.6 L (80.0-100.0) fL MCH 23.9 L (25.0-35.0) pg MCHC 32.0 (31.0-37.0) g/dL RDW 23.2 H (11.5-15.5) % Plt Count 261 (150-450) k/uL MPV 8.4 Hypochromasia Moderate Anisocytosis Moderate Microcytosis Marked Sodium 130 L (137-145) mmol/L Potassium 3.9 (3.5-5.1) mmol/L Chloride 88 L (98-107) mmol/L Carbon Dioxide 33 H (22-30) mmol/L Anion Gap 9 mmol/L BUN 16 (7-17) mg/dL Creatinine 0.60 (0.52-1.04) mg/dL Est GFR (CKD-EPI)AfAm >90 (>60 ml/min/1.73 sqM) Est GFR (CKD-EPI)NonAf >90 (>60 ml/min/1.73 sqM) Glucose 154 H (74-99) mg/dL Calcium 9.4 (8.4-10.2) mg/dL Magnesium 1.8 (1.6-2.3) mg/dL Total Bilirubin 0.5 (0.2-1.3) mg/dL AST 49 H (14-36) U/L ALT 84 H (4-34) U/L Alkaline Phosphatase 91 (38-126) U/L Troponin I <0.012 (0.000-0.034) ng/mL Total Protein 6.3 (6.3-8.2) g/dL Albumin 3.9 (3.5-5.0) g/dL Lipase 45 (23-300) U/L Disposition Clinical Impression: Weakness, GI bleed Disposition: HOME SELF-CARE Condition: Good Instructions (If sedation given, give patient instructions): Gastrointestinal Bleeding (ED) Is patient prescribed a controlled substance at d/c from ED?: No Referrals: Dennis Riley [Primary Care Provider] - 1-2 days Time of Disposition: 14:20
[2024-10-16 14:02] LABS: Anisocytosis Moderate; HCT 39.9 % (34.0-46.0); HGB 12.8 gm/dL (11.4-16.0); Hypochromasia Moderate; MCH 23.9 pg (25.0-35.0); MCV 74.6 fL (80.0-100.0); Mean Platelet Volume 8.4; Microcytosis Marked; Platelet Count 261 k/uL (150-450); RBC 5.36 m/uL (3.80-5.40); RDW 23.2 % (11.5-15.5); WBC 8.2 k/uL (3.8-10.6)
[2024-10-16 14:05] LABS: ALT 84 U/L (4-34); AST 49 U/L (14-36); African American GFR (CKD) >90 (>60 ml/min/1.73 sqM); Albumin 3.9 g/dL (3.5-5.0); Alkaline Phosphatase 91 U/L (38-126); Anion Gap 9 mmol/L; Blood Urea Nitrogen 16 mg/dL (7-17); Calcium 9.4 mg/dL (8.4-10.2); Carbon Dioxide 33 mmol/L (22-30); Chloride 88 mmol/L (98-107); Glucose 154 mg/dL (74-99); Lipase 45 U/L (23-300); Magnesium 1.8 mg/dL (1.6-2.3); Non-African American GFR(CKD) >90 (>60 ml/min/1.73 sqM); Potassium 3.9 mmol/L (3.5-5.1); Sodium 130 mmol/L (137-145); Total Bilirubin 0.5 mg/dL (0.2-1.3); Total Protein 6.3 g/dL (6.3-8.2)
[2024-10-16 14:25] LABS: INR 0.9 (<1.2); Partial Thromboplastin Time 22.8 sec (22.0-30.0); Prothrombin Time 10.5 sec (10.0-12.5)
[2024-10-16] MEDS: PANTOPRAZOLE 40 MG/10 ML VIAL IVP STA (14:39)
[2024-10-16] MEDS: ONDANSETRON 4 MG/2 ML VIAL IVP STA (14:39)
[2024-10-16] MEDS: SODIUM CHLORIDE 0.9% 1,000 ML IV STA (14:40)
[2024-10-16 14:51] VITALS: BP 131/73; PULSE 82; RESP 18; TEMP 98.7
[2024-10-16 15:47] LABS: Band Neutrophils % 4 %; Lymphocytes # (M) 0.98 k/uL (1.0-4.8); Monocytes # (M) 0.41 k/uL (0-1.0); Neutrophils % (M) 79 %; Nucleated Red Blood Cells 0 /100 WBC (0-0); Total Cells Counted 100
== END 2024-10-16 15:02 | disposition home or self-care (01) ==
LOC: EC 12:31 → SUPCPDRO 12:31 → EC 15:02
DX: R53.1 Weakness (principal); K92.2 Gastrointestinal hemorrhage, unspecified; F17.200 Nicotine dependence, unspecified, uncomplicated
CPT/HCPCS: 36415; 86900; 86901; 80053; 82140; 83690; 83735; 84484; 85025; 85610; 85730; 86850; 99284; 96374; 96375; J2405; J2470

== ENCOUNTER 2024-10-22 14:02 | Inpatient (IN) | payer OTHER ==
--- NOTE | 2024-10-22 14:38 | CT ---
EXAMINATION TYPE: CT brain cspine wo con DATE OF EXAM: 10/22/2024 2:27 PM COMPARISON: 01/28/2019. CLINICAL INDICATION: Female, 69 years old with history of fall on thinner; fall on thinner, pain TECHNIQUE: Brain: Multiple axial CT images of the brain were obtained without IV contrast. Cspine: Axial CT images from the skull base to the inferior aspect of T2 we obtained without intraven ous contrast. Coronal and sagittal reformatted images were also reviewed. . CT DLP: 1323.7 mGycm, Automated exposure control for dose reduction was used. FINDINGS: Brain: Extra-axial spaces: No abnormal extra-axial fluid collections. Ventricular system: Dilatation in proportion to cerebral atrophy. Cerebral parenchyma: Cerebral atrophy. No acute intraparenchymal hemorrhage or mass effect. The nelson -white junction is well differentiated. Scattered hypoattenuating areas are seen within the white mat ter. Cerebellum: Unremarkable. Mass effect: No evidence of midline shift. Intracranial vasculature: Atherosclerotic calcifications of the intracranial vessels. Soft tissues: Normal. Calvarium/osseous structures: No depressed skull fracture. Paranasal sinuses and mastoid air cells: Clear. Visualized orbits: Orbital contents are intact. Cervical spine: Fracture: None. Osseous structures: Multilevel degenerative disc disease changes with endplate spurring and disc oste ophyte complex's. Vertebral alignment: Within normal limits. Spinal canal/Neural Foramina: No evidence of significant spinal canal narrowing. No evidence for sign ificant neural foraminal stenosis. Neck soft tissues: Prevertebral soft tissues are within normal limits. Other: The airway is patent. The lung apices are clear. IMPRESSION: No acute intracranial process. Nonspecific white matter changes, likely secondary to chronic small vessel ischemic disease. No evidence of cervical spine fracture. Mild multilevel degenerative disc disease. [facility], , 10/22/2024 2:36 PM
--- NOTE | 2024-10-22 14:41 | ED ---
General Adult HPI - General Chief complaint: Fall Stated complaint: Fall Time Seen by Provider: 10/22/24 14:10 Source: patient, EMS, RN notes reviewed, old records reviewed Mode of arrival: EMS Limitations: altered mental status - History of Present Illness Initial comments: 69-year-old female who presents to the emergency department after she stated she tripped and fell forward hit the front of her head. Patient did lose consciousness. Patient denies any neck pain. Patient states she hit the forehead on a table on the way down. Patient denies any chest pain or back pain. Patient denies any extremity pain. Patient denies any other symptoms. Patient states she recently got a iron infusion 2 weeks ago and since then she just has not felt right. - Related Data Home Medications Medication Instructions Recorded Confirmed Dalfampridine [Dalfampridine ER] 10 mg PO Q12H 06/19/23 10/22/24 Fenofibrate,Micronized 134 mg PO DAILY 06/19/23 10/22/24 [Fenofibrate] Furosemide [Lasix] 20 mg PO TID 06/19/23 10/22/24 Rivaroxaban [Xarelto] 20 mg PO DAILY 06/19/23 10/22/24 Albuterol Inhaler [Ventolin Hfa 1 puff INHALATION RT-Q4H PRN 07/07/24 10/22/24 Inhaler] Amitriptyline HCl [Elavil] 25 mg PO HS 07/07/24 10/22/24 Butalb/APAP/Caff 50-325-40Mg 1 tab PO Q8H PRN 07/07/24 10/22/24 [Fioricet 50-325-40] Esomeprazole Magnesium [NexIUM] 40 mg PO BID 07/07/24 10/22/24 Gabapentin 300 mg PO BID 07/07/24 10/22/24 Nicotine 21Mg/24Hr Patch [Habitrol] 1 patch TRANSDERM DAILY 07/07/24 10/22/24 Ondansetron [Zofran] 4 mg PO DAILY 07/07/24 10/22/24 Patient Own Pump 0 bag 07/07/24 rOPINIRole HCL 4 mg PO BID 07/07/24 10/22/24 traMADol HCL 50 mg PO BID PRN 07/07/24 10/22/24 Ammonium Lactate Lotion 1 applic TOPICAL DAILY 10/16/24 10/22/24 [Lac-Hydrin 12% Lotion] Ascorbic Acid [Vitamin C] 500 mg PO DAILY 10/16/24 10/22/24 Cholecalciferol [Vitamin D3 (125 125 mcg PO DAILY 10/16/24 10/22/24 Mcg = 5000 Iu)] Ferrous Sulfate [Feosol] 325 mg PO DAILY 10/16/24 10/22/24 Fluticasone Nasal [place] [Flonase 1 spr EA NOSTRIL BID PRN 10/16/24 10/22/24 Nasal [place]] Fluticasone/Umeclidin/Vilanter 1 puff INHALATION RT-DAILY 10/16/24 10/22/24 [Trelegy Ellipta 200-62.5-25] Ibuprofen [Motrin Ib] 200 - 400 mg PO Q6H PRN 10/16/24 10/22/24 Multivit-Min/Iron/Folic/Lutein 1 tab PO DAILY 10/16/24 10/22/24 [Centrum Silver Women Tablet] Ondansetron Odt [Zofran Odt] 4 mg PO Q8H PRN 10/16/24 10/22/24 SILVER sulfADIAZINE CREAM 1 applic TOPICAL DAILY PRN 10/16/24 10/22/24 [Silvadene Cream] guaiFENesin [guaiFENesin Oral 400 mg PO Q4H PRN 10/16/24 10/22/24 Solution] Allergies Allergy/AdvReac Type Severity Reaction Status Date / Time No Known Allergies Allergy Verified 10/22/24 14:22 Review of Systems ROS Statement: Those systems with pertinent positive or pertinent negative responses have been documented in the HPI. ROS Other: All systems not noted in ROS Statement are negative. Past Medical History Past Medical History: Fibromyalgia, GERD/Reflux, Neurologic Disorder, Pulmonary Embolus (PE), Seizure Disorder, Sleep Apnea/CPAP/BIPAP Additional Past Medical History / Comment(s): Multiple sclerosis, some dysphagia at times, incontinent or urine/bowels at times, generalized nerve pain, migraines, spinal stenosis, dx colitis at age 15 yrs, frequent falls, hypoglycemia, chronic fatigue syndrome, last seizure around 2019 History of Any Multi-Drug Resistant Organisms: None Reported Past Surgical History: Appendectomy, Back Surgery, Cholecystectomy, Hysterectomy Additional Past Surgical History / Comment(s): spinal cord stimulator surgically placed in December 2012, morphine pain pump placed, laparoscopic surgery for fibroids Past Anesthesia/Blood Transfusion Reactions: Previous Problems w/ Anesthesia, Motion Sickness Additional Past Anesthesia/Blood Transfusion Reaction / Comment(s): "hard to wake up and my blood pressure gets very low" Past Psychological History: Depression Smoking Status: Current every day smoker Past Alcohol Use History: Rare Past Drug Use History: None Reported - Past Family History Father Family Medical History: Cancer Brother(s) Family Medical History: Cancer General Exam - General Exam Comments Initial Comments: GENERAL: Patient is well-developed and well-nourished. Patient is nontoxic and well- hydrated and is in mild distress. Patient has an area on her forehead that is tender but there is no abrasion or hematoma ENT: Neck is soft and supple. No significant lymphadenopathy is noted. Oropharynx is clear. Moist mucous membranes. Neck has full range of motion without eliciting any pain. EYES: The sclera were anicteric and conjunctiva were pink and moist. Extraocular movements were intact and pupils were equal round and reactive to light. E yelids were unremarkable. PULMONARY: Unlabored respirations. Good breath sounds bilaterally. No audible rales rhonchi or wheezing was noted. CARDIOVASCULAR: There is a regular rate and rhythm without any murmurs gallops or rubs. ABDOMEN: Soft and nontender with normal bowel sounds. SKIN: Skin is clear with no lesions or rashes and otherwise unremarkable. NEUROLOGIC: Patient is alert and oriented x3. Cranial nerves II through XII are grossly intact. Motor and sensory are also intact. Normal speech, volume and content. Symmetrical smile. MUSCULOSKELETAL: Normal extremities with adequate strength and full range of motion. LYMPHATICS: No significant lymphadenopathy is noted PSYCHIATRIC: Normal psychiatric evaluation. Limitations: altered mental status Course Vital Signs 10/22/24 10/22/24 10/22/24 14:07 14:29 15:10 Temperature 98.6 F Pulse Rate 95 86 Respiratory 15 13 Rate Blood Pressure 129/66 118/62 O2 Sat by Pulse 97 98 Oximetry Medical Decision Making - Medical Decision Making EKG is interpreted by myself. EKG shows sinus rhythm at 95 bpm AL intervals 142 QRS is 105 QT interval 356 QTc is 408 patient's EKG shows no ST segment elevation or depression Was pt. sent in by a medical professional or institution (, PA, TURRET LATHE MACHINIST, urgent care, hospital, or penitentiary...) When possible be specific @ -No Did you speak to anyone other than the patient for history (EMS, parent, family, police, friend...)? What history was obtained from this source @ -No Did you review nursing and triage notes (agree or disagree)? Why? @ -I reviewed and agree with nursing and triage notes Were old charts reviewed (outside hosp., previous admission, EMS record, old EKG, old radiological studies, urgent care reports/EKG's, penitentiary records)? Report findings @ -No old charts were reviewed Differential Diagnosis? @ -Differential Weakness: Hypoglycemia, shock, sepsis, hyponatremia, anemia, infection, CT, ETOH, adverse medicine reaction, overdose, stroke, this is not meant to be an all-inclusive list. EKG interpreted by me (3pts min.). @ -As above X-rays interpreted by me (1pt min.). @ -None done CT interpreted by me (1pt min.). @ -CT of the brain shows no acute abnormality CT of the neck shows no acute abnormality U/S interpreted by me (1pt. min.). @ -None done What testing was considered but not performed or refused? (CT, X-rays, U/S, labs)? Why? @ -None What meds were considered but not given or refused? Why? @ -None Did you discuss the management of the patient with other professionals (professionals i.e. , PA, TURRET LATHE MACHINIST, lab, RT, psych nurse, manager social media, wax molder, teacher, gift officer, corrections caseworker)? Give summary @ -I spoke with [facility] physicians he agreed to admit the patient admit the patient wrote admitting orders Was smoking cessation discussed for >3mins.? @ -No Was critical care preformed (if so, how long)? @ -No Were there social determinants of health that impacted care today? How? (Lela elessness, low income, unemployed, alcoholism, drug addiction, transportation, low edu. Level, literacy, decrease access to med. care, fpc, rehab)? @ -No Was there de-escalation of care discussed even if they declined (Discuss DNR or withdrawal of care, Hospice)? DNR status @ -No What co-morbidities impacted this encounter? (DM, HTN, Smoking, COPD, CAD, Cancer, CVA, ARF, Chemo, Hep., AIDS, mental health diagnosis, sleep apnea, morbid obesity)? @ -None Was patient admitted / discharged? Hospital course, mention meds given and route, prescriptions, significant lab abnormalities, going to OR and other pertinent info. @ -Patient is CAT scans of the brain and C-spine showed no acute abnormality. Patient had a low sodium of 128 and she states she has been feeling weaker lately especially over the last 2 weeks. Patient will be admitted Undiagnosed new problem with uncertain prognosis? @ -No Drug Therapy requiring intensive monitoring for toxicity (Heparin, Nitro, Insulin, Cardizem)? @ -No Were any procedures done? @ -No Diagnosis/symptom? @ -Hyponatremia Acute, or Chronic, or Acute on Chronic? @ -Acute Uncomplicated (without systemic symptoms) or Complicated (systemic symptoms)? @ -Complicated Side effects of treatment? @ -No Exacerbation, Progression, or Severe Exacerbation? @ -No Poses a threat to life or bodily function? How? (Chest pain, USA, CT, pneumonia, PE, COPD, DKA, ARF, appy, cholecystitis, CVA, Diverticulitis, Homicidal, Suicidal, threat to staff... and all critical care pts) @ -No Diagnosis/symptom? @ -Weakness Acute, or Chronic, or Acute on Chronic? @ -Acute Uncomplicated (without systemic symptoms) or Complicated (systemic symptoms)? @ -Complicated Side effects of treatment? @ -None Exacerbation, Progression, or Severe Exacerbation] @ -No Poses a threat to life or bodily function? @ -No - Lab Data Result diagrams: 10/22/24 14:15 10/22/24 14:15 Lab Results 10/22/24 10/22/24 Range/Units 14:15 14:15 WBC 4.6 (3.8-10.6) k/uL RBC 4.70 (3.80-5.40) m/uL Hgb 11.4 (11.4-16.0) gm/dL Hct 34.9 (34.0-46.0) % MCV 74.4 L (80.0-100.0) fL MCH 24.2 L (25.0-35.0) pg MCHC 32.6 (31.0-37.0) g/dL RDW 23.4 H (11.5-15.5) % Plt Count 265 (150-450) k/uL MPV 7.6 Neutrophils % 77 % Lymphocytes % 18 % Monocytes % 3 % Eosinophils % 0 % Basophils % 0 % Neutrophils # 3.6 (1.3-7.7) k/uL Lymphocytes # 0.8 L (1.0-4.8) k/uL Monocytes # 0.1 (0-1.0) k/uL Eosinophils # 0.0 (0-0.7) k/uL Basophils # 0.0 (0-0.2) k/uL Hypochromasia Slight Anisocytosis Moderate Microcytosis Marked Sodium 128 L (137-145) mmol/L Potassium 3.5 (3.5-5.1) mmol/L Chloride 88 L (98-107) mmol/L Carbon Dioxide 30 (22-30) mmol/L Anion Gap 10 mmol/L BUN 13 (7-17) mg/dL Creatinine 0.68 (0.52-1.04) mg/dL Est GFR (CKD-EPI)AfAm >90 (>60 ml/min/1.73 sqM) Est GFR (CKD-EPI)NonAf 89 (>60 ml/min/1.73 sqM) Glucose 109 H (74-99) mg/dL Calcium 8.4 (8.4-10.2) mg/dL Total Bilirubin 0.5 (0.2-1.3) mg/dL AST 104 H (14-36) U/L ALT 59 H (4-34) U/L Alkaline Phosphatase 73 (38-126) U/L Total Protein 5.4 L (6.3-8.2) g/dL Albumin 3.2 L (3.5-5.0) g/dL Disposition Clinical Impression: Fall, Weakness, Hyponatremia Disposition: ADMITTED IP TO THIS HOSP Referrals: Jcarlos Peña MD [Primary Care Provider] - 1-2 days Time of Disposition: 15:32
[2024-10-22 14:47] LABS: Anisocytosis Moderate; Basophils % (A) 0 %; Eosinophils % (A) 0 %; HCT 34.9 % (34.0-46.0); HGB 11.4 gm/dL (11.4-16.0); Hypochromasia Slight; Lymphocytes # (A) 0.8 k/uL (1.0-4.8); Lymphocytes % (A) 18 %; MCH 24.2 pg (25.0-35.0); MCHC 32.6 g/dL (31.0-37.0); MCV 74.4 fL (80.0-100.0); Mean Platelet Volume 7.6; Microcytosis Marked; Monocytes # (A) 0.1 k/uL (0-1.0); Monocytes % (A) 3 %; Neutrophils # (A) 3.6 k/uL (1.3-7.7); Neutrophils % (A) 77 %; Platelet Count 265 k/uL (150-450); RDW 23.4 % (11.5-15.5); WBC 4.6 k/uL (3.8-10.6)
[2024-10-22 14:58] LABS: ALT 59 U/L (4-34); AST 104 U/L (14-36); African American GFR (CKD) >90 (>60 ml/min/1.73 sqM); Albumin 3.2 g/dL (3.5-5.0); Alkaline Phosphatase 73 U/L (38-126); Anion Gap 10 mmol/L; Blood Urea Nitrogen 13 mg/dL (7-17); Calcium 8.4 mg/dL (8.4-10.2); Carbon Dioxide 30 mmol/L (22-30); Chloride 88 mmol/L (98-107); Glucose 109 mg/dL (74-99); Non-African American GFR(CKD) 89 (>60 ml/min/1.73 sqM); Potassium 3.5 mmol/L (3.5-5.1); Sodium 128 mmol/L (137-145); Total Bilirubin 0.5 mg/dL (0.2-1.3); Total Protein 5.4 g/dL (6.3-8.2)
[2024-10-22] MEDS: SODIUM CHLORIDE 0.9% 500 ML 500 ML IV ONE (15:13)
--- NOTE | 2024-10-22 17:41 | P.HPIM ---
History of Present Illness H&P Date: 10/22/24 Patient is a 69-year-old female with multiple sclerosis, chronic narcotic dependence on morphine pain pump, history of pulmonary embolism on Xarelto, seizure disorder, COPD, sleep apnea on CPAP/BiPAP presenting with fall and dizziness. Patient states several days ago she lost balance tripped and fell forward and hit the front of her head. She states she did not lose any consciousness. She does not remember the last time she is fell down. Normally ambulates with a walker or uses a wheelchair. Last night patient states she felt dizzy after getting up from a seated position. She states has been happening more lately. States that she felt better after sitting down. Admits to feeling nauseous and having a headache. Patient denies any syncope, fever, chills, chest pain, history of seizures, shortness of breath, abdominal pain, urinary symptoms. EKG independently interpreted showing sinus rhythm, flattened T waves, rate 95 bpm, QTc 408 CT head and neck showing no acute intracranial process, nonspecific white matter changes, no evidence of cervical spine fracture, mild multilevel degenerative disc disease WBC 4.6, Hgb 11.4, platelet 265, sodium 128, potassium 3.5, chloride 88, glucose 109, AST 104, ALT 59, total protein 5.4, albumin 3.3 T98.6 F, [place] 86, 13, BP 118/62, O2 90% on 2 L nasal Cannula ED documentation reviewed. Review of systems: Pertinent positives and negatives as discussed in HPI, a complete review of systems was performed and all other systems are negative. Social history: Tobacco: Current 56-year pack smoker Alcohol: Rare Recreational drugs: Denies recreational drug use Physical examination: Vital signs reviewed General: non toxic, no distress, appears at stated age, normal weight Derm: no unusual rashes/lesions, warm Head: atraumatic, normocephalic, symmetric Eyes: EOMI, anicteric sclera, pupils equal round reactive to light ENT: Nose and ears atraumatic Mouth: no lip lesion, mucus membranes moist Cardiovascular: S1S2 reg, no murmur, positive dorsalis pedis pulse bilateral, no edema Lungs: CTA bilateral, no rhonchi, no rales, no accessory muscle use Abdominal: soft, nontender to palpation, no guarding Ext: muscle strength 5 out of 5 in all 4 extremities grossly, no gross muscle atrophy Neuro: CN II-XI grossly intact, no gross focal neuro deficits Psych: Alert, oriented to person, place, and time Assessment/Plan: Patient is a 69-year-old female with multiple sclerosis, chronic narcotic dependence on morphine pain pump, COPD, history of pulmonary embolism on Xarelto, seizure disorder, sleep apnea on CPAP/BiPAP presenting with fall. #. Mild euvolemic hyponatremia Sodium 128 on admission Admits to nausea, headache Was given 1 L bolus by ED TSH, cortisol ordered Serum osmolarity, urine osmolarity, urine sodium ordered Seizure precautions Fluids on hold for now, hold diuretics #. History of recent fall #. Lightheadedness CT head and neck showing no acute intracranial process, nonspecific white matter changes, no evidence of cervical spine fracture, mild multilevel degenerative disc disease Check orthostatics Echocardiogram ordered Fall precautions Cardiac monitoring PT/OT -Holding amitriptyline #. Transaminitis Follow-up with CMP Chronic: #. History of PE: Resume Xarelto 20 mg PO QD #. Multiple sclerosis: Dalfampridine 10 mg PO q12hr #. Nicotine dependence: Nicotine patch daily #. Restless leg syndrome: Gabapentin 300 mg AGUSTINA BID and Ropinirole 4 mg PO BID #. GERD Protonix 40mg PO BID #. Chronic pain: Morphine pain pump #. COPD, not in acute exacerbation: Symbicort 160-4.5 mcg, Spiriva 2.5mcg daily, albuterol 2.5mg prn, 2 L nasal cannula F: N/A E: Replete electrolytes as needed N: Regular diet A: PT/OT, ambulates with walker DVT prophylaxis: Xarelto 20mg PO QD The patient is admitted with an anticipated length of stay more than 2 midnight stay for evaluation of hyponatremia and fall. CODE STATUS: Full code Discussed with: Patient Anticipated discharge place: Home Jarvis Snyder MD PGY-1 IM Dictation was produced using [employer] dictation software. please excuse any grammatical, word or spelling errors. I have seen and evaluated the patient today. Discussed with the resident and agree with the residents finding and plan as documented in the resident's note. Changes highlighted in blue font. Past Medical History Past Medical History: Fibromyalgia, GERD/Reflux, Neurologic Disorder, Pulmonary Embolus (PE), Seizure Disorder, Sleep Apnea/CPAP/BIPAP Additional Past Medical History / Comment(s): Multiple sclerosis, some dysphagia at times, incontinent or urine/bowels at times, generalized nerve pain, migraines, spinal stenosis, dx colitis at age 15 yrs, frequent falls, hypoglycemia, chronic fatigue syndrome, last seizure around 2019 History of Any Multi-Drug Resistant Organisms: None Reported Past Surgical History: Appendectomy, Back Surgery, Cholecystectomy, Hysterectomy Additional Past Surgical History / Comment(s): spinal cord stimulator surgically placed in December 2012, morphine pain pump placed, laparoscopic surgery for fibroids Past Anesthesia/Blood Transfusion Reactions: Previous Problems w/ Anesthesia, Motion Sickness Additional Past Anesthesia/Blood Transfusion Reaction / Comment(s): "hard to wake up and my blood pressure gets very low" Past Psychological History: Depression Smoking Status: Current every day smoker Past Alcohol Use History: Rare Past Drug Use History: None Reported - Past Family History Father Family Medical History: Cancer Brother(s) Family Medical History: Cancer Medications and Allergies Home Medications Medication Instructions Recorded Confirmed Type Dalfampridine [Dalfampridine ER] 10 mg PO Q12H 06/19/23 10/22/24 History Fenofibrate,Micronized 134 mg PO DAILY 06/19/23 10/22/24 History [Fenofibrate] Furosemide [Lasix] 20 mg PO TID 06/19/23 10/22/24 History Rivaroxaban [Xarelto] 20 mg PO DAILY 06/19/23 10/22/24 History Albuterol Inhaler [Ventolin Hfa 1 puff INHALATION RT-Q4H PRN 07/07/24 10/22/24 History Inhaler] Amitriptyline HCl [Elavil] 25 mg PO HS 07/07/24 10/22/24 History Butalb/APAP/Caff 50-325-40Mg 1 tab PO Q8H PRN 07/07/24 10/22/24 History [Fioricet 50-325-40] Esomeprazole Magnesium [NexIUM] 40 mg PO BID 07/07/24 10/22/24 History Gabapentin 300 mg PO BID 07/07/24 10/22/24 History Nicotine 21Mg/24Hr Patch [Habitrol] 1 patch TRANSDERM DAILY 07/07/24 10/22/24 History Ondansetron [Zofran] 4 mg PO DAILY 07/07/24 10/22/24 History Patient Own Pump 0 bag 07/07/24 History rOPINIRole HCL 4 mg PO BID 07/07/24 10/22/24 History traMADol HCL 50 mg PO BID PRN 07/07/24 10/22/24 History Ammonium Lactate Lotion 1 applic TOPICAL DAILY 10/16/24 10/22/24 History [Lac-Hydrin 12% Lotion] Ascorbic Acid [Vitamin C] 500 mg PO DAILY 10/16/24 10/22/24 History Cholecalciferol [Vitamin D3 (125 125 mcg PO DAILY 10/16/24 10/22/24 History Mcg = 5000 Iu)] Ferrous Sulfate [Feosol] 325 mg PO DAILY 10/16/24 10/22/24 History Fluticasone Nasal [place] [Flonase 1 spr EA NOSTRIL BID PRN 10/16/24 10/22/24 History Nasal [place]] Fluticasone/Umeclidin/Vilanter 1 puff INHALATION RT-DAILY 10/16/24 10/22/24 History [Trelegy Ellipta 200-62.5-25] Ibuprofen [Motrin Ib] 200 - 400 mg PO Q6H PRN 10/16/24 10/22/24 History Multivit-Min/Iron/Folic/Lutein 1 tab PO DAILY 10/16/24 10/22/24 History [Centrum Silver Women Tablet] Ondansetron Odt [Zofran Odt] 4 mg PO Q8H PRN 10/16/24 10/22/24 History SILVER sulfADIAZINE CREAM 1 applic TOPICAL DAILY PRN 10/16/24 10/22/24 History [Silvadene Cream] guaiFENesin [guaiFENesin Oral 400 mg PO Q4H PRN 10/16/24 10/22/24 History Solution] Allergies Allergy/AdvReac Type Severity Reaction Status Date / Time No Known Allergies Allergy Verified 10/22/24 14:22 Physical Exam Vitals: Vital Signs Temp Pulse Resp BP Pulse Ox 10/22/24 15:10 86 13 118/62 98 10/22/24 14:29 98.6 F 97 10/22/24 14:07 95 15 129/66 Intake and Output 10/22/24 10/22/24 10/22/24 06:59 14:59 22:59 Other: Weight 84.822 kg Results CBC & Chem 7: 10/22/24 14:15 10/22/24 18:43 Labs: Abnormal Lab Results - Last 24 Hours (Table) 10/22/24 10/22/24 Range/Units 14:15 14:15 MCV 74.4 L (80.0-100.0) fL MCH 24.2 L (25.0-35.0) pg RDW 23.4 H (11.5-15.5) % Lymphocytes # 0.8 L (1.0-4.8) k/uL Sodium 128 L (137-145) mmol/L Chloride 88 L (98-107) mmol/L Glucose 109 H (74-99) mg/dL AST 104 H (14-36) U/L ALT 59 H (4-34) U/L Total Protein 5.4 L (6.3-8.2) g/dL Albumin 3.2 L (3.5-5.0) g/dL
[2024-10-22] MEDS: SODIUM CHLORIDE 0.9% 1,000 ML IV ONE (18:01)
[2024-10-22] MEDS: PUMP MISCELLANE SCH (18:51)
[2024-10-22] MEDS: NON FORMULARY DRUG (Dalfampridine [Dalfampridine Er] 10 MG Tab.Er.12h) PO SCH (18:51)
[2024-10-22 19:11] LABS: African American GFR (CKD) >90 (>60 ml/min/1.73 sqM); Anion Gap 10 mmol/L; Blood Urea Nitrogen 12 mg/dL (7-17); Calcium 8.3 mg/dL (8.4-10.2); Carbon Dioxide 29 mmol/L (22-30); Chloride 91 mmol/L (98-107); Glucose 90 mg/dL (74-99); Non-African American GFR(CKD) >90 (>60 ml/min/1.73 sqM); Potassium 3.5 mmol/L (3.5-5.1); Sodium 130 mmol/L (137-145)
[2024-10-22] MEDS: GABAPENTIN 300 MG CAP PO SCH (21:03)
[2024-10-22] MEDS: PANTOPRAZOLE 40 MG TABLET PO SCH (21:03)
[2024-10-22] MEDS: rOPINIRole HCL 4 MG TABLET PO SCH (21:03)
[2024-10-22 21:59] LABS: Influenza A Not Detected (Not Detectd); Influenza B Not Detected (Not Detectd); RSV Not Detected (Not Detectd)
[2024-10-23 08:23] LABS: Anisocytosis Moderate; Basophils % (A) 0 %; Eosinophils % (A) 0 %; HCT 39.8 % (34.0-46.0); HGB 12.3 gm/dL (11.4-16.0); Hypochromasia Marked; Lymphocytes # (A) 0.8 k/uL (1.0-4.8); Lymphocytes % (A) 16 %; MCH 23.9 pg (25.0-35.0); MCV 77.1 fL (80.0-100.0); Mean Platelet Volume 7.1; Microcytosis Marked; Monocytes # (A) 0.1 k/uL (0-1.0); Monocytes % (A) 2 %; Neutrophils # (A) 4.2 k/uL (1.3-7.7); Neutrophils % (A) 81 %; Platelet Count 284 k/uL (150-450); RBC 5.16 m/uL (3.80-5.40); RDW 23.8 % (11.5-15.5); WBC 5.2 k/uL (3.8-10.6)
[2024-10-23] MEDS: FENOFIBRATE 160 MG TAB PO SCH (08:47)
[2024-10-23] MEDS: NICOTINE 21MG/24HR PATCH TRANSDERM SCH (08:47)
[2024-10-23 08:48] LABS: ALT 60 U/L (4-34); AST 117 U/L (14-36); African American GFR (CKD) >90 (>60 ml/min/1.73 sqM); Albumin 3.3 g/dL (3.5-5.0); Albumin/Globulin Ratio 1.4; Alkaline Phosphatase 79 U/L (38-126); Anion Gap 9 mmol/L; Blood Urea Nitrogen 10 mg/dL (7-17); Calcium 8.5 mg/dL (8.4-10.2); Carbon Dioxide 29 mmol/L (22-30); Chloride 92 mmol/L (98-107); Globulin 2.3 g/dL; Glucose 107 mg/dL (74-99); Magnesium 1.5 mg/dL (1.6-2.3); Non-African American GFR(CKD) >90 (>60 ml/min/1.73 sqM); Potassium 3.6 mmol/L (3.5-5.1); Sodium 130 mmol/L (137-145); Total Bilirubin 0.6 mg/dL (0.2-1.3); Total Protein 5.6 g/dL (6.3-8.2)
[2024-10-23] MEDS: RIVAROXABAN 20 MG TAB PO SCH (08:48)
[2024-10-23] MEDS ORDERED: NICOTINE 21MG/24HR PATCH TRANSDERM SCH (09:00)
[2024-10-23] MEDS: NON FORMULARY DRUG (Dalfampridine [Dalfampridine Er] 10 MG Tab.Er.12h) PO SCH (09:46)
[2024-10-23] MEDS: SYMBICORT 160-4.5 MCG INHALER INHALATION SCH (09:46)
[2024-10-23] MEDS: ALBUTEROL NEBULIZED 2.5 MG/3 ML INHALATION PRN (09:46)
[2024-10-23] MEDS: TIOTROPIUM 2.5 MCG INHALER INHALATION SCH (09:46)
[2024-10-23] MEDS ORDERED: IPRATROPIUM-ALBUTEROL 3 ML NEB INHALATION PRN (10:03)
[2024-10-23] MEDS: ACETAMINOPHEN TAB 325 MG TAB PO PRN (10:08)
[2024-10-23] MEDS: DEXAMETHASONE SOD PHOSPHATE 10 MG/ML 1 ML VIAL IVP SCH (10:19)
[2024-10-23] MEDS: SODIUM CHLORIDE 0.9% 1,000 ML IV SCH (10:20)
[2024-10-23] MEDS: MAGNESIUM SULFATE-D5W PMX 1 GM in DEXTROSE/WATER 1 100ML.BAG IVPB SCH (10:20)
--- NOTE | 2024-10-23 10:54 | XR ---
EXAMINATION TYPE: XR chest 1V portable DATE OF EXAM: 10/23/2024 10:43 AM COMPARISON: Chest radiographs from 07/07/2024 CLINICAL INDICATION: Female, 69 years old with history of pneumonia; [facility] TECHNIQUE: XR chest 1V portable Frontal view of the chest. FINDINGS: Lungs/Pleura: No evidence of focal consolidation or pneumothorax. Blunting of the costophrenic angles is present. Pulmonary vascularity: Pulmonary vascular congestion. Heart/mediastinum: Cardiomediastinal silhouette is enlarged. Musculoskeletal: No acute osseous pathology. Other findings: None Lines/Tubes: IMPRESSION: Cardiomegaly, pulmonary vascular congestion and bilateral pleural effusions. Correlate with BNP for c ongestive heart failure. [facility], , 10/23/2024 10:51 AM
--- NOTE | 2024-10-23 11:21 | P.PN ---
Subjective Progress Note Date: 10/23/24 Hospital Course: Patient is a 69-year-old female with multiple sclerosis, chronic narcotic dependence on morphine pain pump, history of pulmonary embolism on Xarelto, seizure disorder, COPD, sleep apnea on CPAP/BiPAP presenting with fall and dizziness. Patient states several days ago she lost balance tripped and fell forward and hit the front of her head. She states she did not lose any consciousness. She does not remember the last time she is fell down. Normally ambulates with a walker or uses a wheelchair. Last night patient states she felt dizzy after getting up from a seated position. She states has been happening more lately. States that she felt better after sitting down. Admits to feeling nauseous and having a headache. Patient denies any syncope, fever, chills, chest pain, history of seizures, shortness of breath, abdominal pain, urinary symptoms. EKG independently interpreted showing sinus rhythm, flattened T waves, rate 95 bpm, QTc 408 CT head and neck showing no acute intracranial process, nonspecific white matter changes, no evidence of cervical spine fracture, mild multilevel degenerative disc disease WBC 4.6, Hgb 11.4, platelet 265, sodium 128, potassium 3.5, chloride 88, glucose 109, AST 104, ALT 59, total protein 5.4, albumin 3.3 T98.6 F, [place] 86, 13, BP 118/62, O2 90% on 2 L nasal Cannula ED documentation reviewed. Review of systems: Pertinent positives and negatives as discussed in HPI, a complete review of systems was performed and all other systems are negative. Social history: Tobacco: Current 56-year pack smoker Alcohol: Rare Recreational drugs: Denies recreational drug use Subjective: Patient seen and examined at bedside. Patient spiked fever overnight. States she feels worse. Pertinent positives and negatives as discussed above, a complete review of systems was performed and all other systems are negative. Vitals: Signs Reviewed Physical Exam: General: nontoxic, no distress, appears at stated age Derm: warm, dry, intact Head: atraumatic, normocephalic, symmetric Eyes: EOMI, anicteric sclera Mouth: no lip lesion, mucus membranes moist Cardiovascular: S1 S2 reg, no murmur, rubs, or gallops Lungs: CTA bilateral, no rhonchi, no rales, no accessory muscle use Abdominal: soft, non-tender to palpataion, no appreciable organomegaly, morphine pain pump Extremities: no gross muscle atrophy, no edema, no contractures Neuro: Alert, Oriented, CNII-XII grossly intact, gait normal Psych: well appearing, appropriate affect Data Received Today: Pertinent Labs: WBC 5.2, sodium 130, magnesium 1.5 Imaging: CXR independently interpreted displaying pulmonary vascular congestion, bilateral pleural effusion, cardiomegaly Echo pending Assessment and Plan: Patient is a 69-year-old female with multiple sclerosis, chronic narcotic dependence on morphine pain pump, COPD, history of pulmonary embolism on Xare lto, seizure disorder, sleep apnea on CPAP/BiPAP presenting with fall along with acute hypoxic respiratory failure secondary to COVID-pneumonia. #. Acute hypoxic respiratory failure secondary to COVID pneumonia #. Pulmonary edema #. Bilateral pleural effusion CXR independently interpreted displaying pulmonary vascular congestion, bilateral pleural effusion, cardiomegaly Decadron 6 mg IVP for 10 days Acetaminophen 650 mg p.o. every 6 hours as needed for fever Discontinue IV fluids Oxygen 4L NC Discussed with pulmonology, out of the window for remdesivir given symptom onset was over 1 week IV Lasix 40 mg ordered by pulmonology proBNP ordered Procalcitonin ordered #. Mild euvolemic hyponatremia Sodium 128 on admission Admits to nausea, headache Was given 1 L bolus by ED Random cortisol elevated 28.5 TSH 1.220 Serum osmolarity, urine osmolarity, urine sodium ordered Seizure precautions Discontinue fluids #. Hypomagnesemia Mg 1.5 Replace with 2 g IV mag sulfate #. History of recent fall #. Lightheadedness CT head and neck showing no acute intracranial process, nonspecific white matter changes, no evidence of cervical spine fracture, mild multilevel degenerative disc disease orthostatics negative Echocardiogram ordered Fall precautions Cardiac monitoring PT/OT Holding amitriptyline #. Transaminitis Follow-up with CMP Chronic: #. History of PE: Resume Xarelto 20 mg PO QD #. Multiple sclerosis: Dalfampridine 10 mg PO q12hr #. Nicotine dependence: Nicotine patch daily #. Restless leg syndrome: Gabapentin 300 mg AGUSTINA BID and Ropinirole 4 mg PO BID #. GERD Protonix 40mg PO BID #. Chronic pain: Morphine pain pump #. COPD, not in acute exacerbation: Symbicort 160-4.5 mcg, Spiriva 2.5mcg daily, albuterol 2.5mg prn, 2 L nasal cannula F: NS at 75 cc/HR E: Replete electrolytes as needed N: Regular diet A: PT/OT, ambulates with walker DVT prophylaxis: Xarelto 20mg PO QD Code status: Full code Anticipated discharge place: Pending clinical course Anticipated discharge time: Pending clinical course Jarvis Snyder MD PGY-1 IM Dictation was produced using [employer] dictation software. please excuse any grammatical, word or spelling errors. I have seen and evaluated the patient today. Discussed with the resident and a gree with the residents finding and plan as documented in the resident's note. Changes highlighted in blue font. Objective - Vital Signs Vital signs: Vital Signs Temp 97.6 F 10/23/24 07:24 Pulse 88 10/23/24 07:24 Resp 17 10/23/24 07:24 BP 126/74 10/23/24 07:24 Pulse Ox 92 L 10/23/24 07:24 FiO2 Intake & Output 10/22/24 10/23/24 10/23/24 18:59 06:59 18:59 Weight 84.822 kg Other: Voiding Method Bedside Commode # Voids 0 - Labs CBC & Chem 7: 10/23/24 07:56 10/23/24 07:56 Labs: Abnormal Lab Results - Last 24 Hours (Table) 10/22/24 10/22/24 10/22/24 Range/Units 14:15 14:15 14:15 MCV 74.4 L (80.0-100.0) fL MCH 24.2 L (25.0-35.0) pg RDW 23.4 H (11.5-15.5) % Lymphocytes # 0.8 L (1.0-4.8) k/uL Sodium 128 L (137-145) mmol/L Chloride 88 L (98-107) mmol/L Glucose 109 H (74-99) mg/dL Osmolality 274 L (275-295) mOsm/kg Calcium (8.4-10.2) mg/dL AST 104 H (14-36) U/L ALT 59 H (4-34) U/L Total Protein 5.4 L (6.3-8.2) g/dL Albumin 3.2 L (3.5-5.0) g/dL Cortisol (3.1-22.4) UG/DL SARS-CoV-2 (PCR) (Not Detectd) 10/22/24 10/22/24 10/22/24 Range/Units 16:20 18:43 21:00 MCV (80.0-100.0) fL MCH (25.0-35.0) pg RDW (11.5-15.5) % Lymphocytes # (1.0-4.8) k/uL Sodium 130 L (137-145) mmol/L Chloride 91 L (98-107) mmol/L Glucose (74-99) mg/dL Osmolality (275-295) mOsm/kg Calcium 8.3 L (8.4-10.2) mg/dL AST (14-36) U/L ALT (4-34) U/L Total Protein (6.3-8.2) g/dL Albumin (3.5-5.0) g/dL Cortisol 28.5 H (3.1-22.4) UG/DL SARS-CoV-2 (PCR) Detected A (Not Detectd)
[2024-10-23] MEDS: FUROSEMIDE 10 MG/ML 4 ML VIAL IV STA (11:48)
[2024-10-23] MEDS: IPRATROPIUM-ALBUTEROL 3 ML NEB INHALATION SCH (12:51)
--- NOTE | 2024-10-23 14:53 | P.CNPUL ---
History of Present Illness Consult date: 10/23/24 Requesting physician: Stan Mills Reason for consult: dyspnea Chief complaint: Shortness of breath, weakness History of present illness: This is a 69-year-old female patient who has a history of pulmonary embolism anticoagulated with Xarelto, multiple sclerosis with chronic dysphagia, chronic pain syndrome with pain stimulator and morphine pump, spinal stenosis, fibromyalgia, seizure disorder, chronic tobacco dependence, chronic obstructive pulmonary disease. She had tested positive for COVID 10 days ago and was treated with Paxlovid. She has very limited mobility due to her MS. She presented here to the emergency room yesterday after sustaining a fall hitting her head on a table with loss of consciousness. CT scan of the brain and spine revealed no evidence of acute intracranial process. No evidence of fracture. Chest x-ray revealed cardiomegaly with pulmonary vascular congestion and bilateral pleural effusions. White count 5.2. Hemoglobin 12.3. Platelets 284. Sodium 130. Potassium 3.6. Bicarb 29. BUN 10. Creatinine 0.55. Glucose 107. COVID screen positive. She is seen today in consultation on the regular medical floor. She is currently sitting up in bed. Awake and alert in no acute distress. She is maintaining O2 saturations in the 90s on 4 L/min per nasal cannula. She did have a temperature of 100.2. Blood pressure stable. Review of Systems REVIEW OF SYSTEMS: CONSTITUTIONAL: Positive for trip and fall. Denies any recent significant weight loss or weight gain. EYES: Denies change in vision. EARS, NOSE, MOUTH, THROAT: Denies headaches, denies sore throat. CARDIOVASCULAR: Denies chest pain, palpitations or syncopal episodes. RESPIRATORY: Denies shortness of breath, cough, congestion or hemoptysis. GASTROINTESTINAL: Denies change in appetite, denies abdominal pain GENITOURINARY: Denies hematuria, denies infections. MUSKULOSKELETAL: Denies pain, denies swelling. INTEGUMENTARY: Denies rash, denies eczema. NEUROLOGICAL: Denies recent memory loss, no recent seizure activity. PSYCHIATRIC: Denies anxiety, denies depression. HEMATOLOGIC/LYMPHATIC: Denies anemia, denies enlarged lymph nodes. Past Medical History Past Medical History: Fibromyalgia, GERD/Reflux, Neurologic Disorder, Pulmonary Embolus (PE), Seizure Disorder, Sleep Apnea/CPAP/BIPAP Additional Past Medical History / Comment(s): Multiple sclerosis, some dysphagia at times, incontinent or urine/bowels at times, generalized nerve pain, migraines, spinal stenosis, dx colitis at age 15 yrs, frequent falls, hypoglycemia, chronic fatigue syndrome, last seizure around 2019 History of Any Multi-Drug Resistant Organisms: None Reported Past Surgical History: Appendectomy, Back Surgery, Cholecystectomy, Hysterectomy Additional Past Surgical History / Comment(s): spinal cord stimulator surgically placed in December 2012, morphine pain pump placed, laparoscopic surgery for fibroids Past Anesthesia/Blood Transfusion Reactions: Previous Problems w/ Anesthesia, Motion Sickness Additional Past Anesthesia/Blood Transfusion Reaction / Comment(s): "hard to wake up and my blood pressure gets very low" Past Psychological History: Depression Smoking Status: Current every day smoker Past Alcohol Use History: Rare Past Drug Use History: None Reported - Past Family History Father Family Medical History: Cancer Brother(s) Family Medical History: Cancer Medications and Allergies Home Medications Medication Instructions Recorded Confirmed Type Dalfampridine [Dalfampridine ER] 10 mg PO Q12H 06/19/23 10/22/24 History Fenofibrate,Micronized 134 mg PO DAILY 06/19/23 10/22/24 History [Fenofibrate] Furosemide [Lasix] 20 mg PO TID 06/19/23 10/22/24 History Rivaroxaban [Xarelto] 20 mg PO DAILY 06/19/23 10/22/24 History Albuterol Inhaler [Ventolin Hfa 1 puff INHALATION RT-Q4H PRN 07/07/24 10/22/24 History Inhaler] Amitriptyline HCl [Elavil] 25 mg PO HS 07/07/24 10/22/24 History Butalb/APAP/Caff 50-325-40Mg 1 tab PO Q8H PRN 07/07/24 10/22/24 History [Fioricet 50-325-40] Esomeprazole Magnesium [NexIUM] 40 mg PO BID 07/07/24 10/22/24 History Gabapentin 300 mg PO BID 07/07/24 10/22/24 History Nicotine 21Mg/24Hr Patch [Habitrol] 1 patch TRANSDERM DAILY 07/07/24 10/22/24 History Ondansetron [Zofran] 4 mg PO DAILY 07/07/24 10/22/24 History Patient Own Pump 0 bag 07/07/24 History rOPINIRole HCL 4 mg PO BID 07/07/24 10/22/24 History traMADol HCL 50 mg PO BID PRN 07/07/24 10/22/24 History Ammonium Lactate Lotion 1 applic TOPICAL DAILY 10/16/24 10/22/24 History [Lac-Hydrin 12% Lotion] Ascorbic Acid [Vitamin C] 500 mg PO DAILY 10/16/24 10/22/24 History Cholecalciferol [Vitamin D3 (125 125 mcg PO DAILY 10/16/24 10/22/24 History Mcg = 5000 Iu)] Ferrous Sulfate [Feosol] 325 mg PO DAILY 10/16/24 10/22/24 History Fluticasone Nasal [place] [Flonase 1 spr EA NOSTRIL BID PRN 10/16/24 10/22/24 History Nasal [place]] Fluticasone/Umeclidin/Vilanter 1 puff INHALATION RT-DAILY 10/16/24 10/22/24 History [Trelegy Ellipta 200-62.5-25] Ibuprofen [Motrin Ib] 200 - 400 mg PO Q6H PRN 10/16/24 10/22/24 History Multivit-Min/Iron/Folic/Lutein 1 tab PO DAILY 10/16/24 10/22/24 History [Centrum Silver Women Tablet] Ondansetron Odt [Zofran Odt] 4 mg PO Q8H PRN 10/16/24 10/22/24 History SILVER sulfADIAZINE CREAM 1 applic TOPICAL DAILY PRN 10/16/24 10/22/24 History [Silvadene Cream] guaiFENesin [guaiFENesin Oral 400 mg PO Q4H PRN 10/16/24 10/22/24 History Solution] Allergies Allergy/AdvReac Type Severity Reaction Status Date / Time No Known Allergies Allergy Verified 10/22/24 14:22 Physical Exam Vitals: Vital Signs Temp Pulse Pulse Pulse Resp BP BP 10/23/24 13:22 100.2 F H 91 16 118/56 10/23/24 13:06 91 10/23/24 12:53 94 10/23/24 11:12 26 H 10/23/24 10:43 101.3 F H 10/23/24 10:29 90 24 96/62 10/23/24 10:02 98 10/23/24 09:55 102.6 F H 130 H 28 H 124/74 10/23/24 09:53 10/23/24 09:47 94 10/23/24 07:24 97.6 F 88 17 126/74 10/23/24 03:14 84 79 20 10/23/24 01:49 99.2 F 79 20 104/69 10/22/24 23:36 10/22/24 18:33 91 10/22/24 18:29 99.1 F 84 20 10/22/24 17:59 98.5 F 77 16 96/72 10/22/24 15:10 86 13 118/62 BP BP BP Pulse Ox 10/23/24 13:22 94 L 10/23/24 13:06 10/23/24 12:53 10/23/24 11:12 10/23/24 10:43 10/23/24 10:29 93 L 10/23/24 10:02 10/23/24 09:55 92 L 10/23/24 09:53 92 L 10/23/24 09:47 10/23/24 07:24 92 L 10/23/24 03:14 10/23/24 01:49 94 L 10/22/24 23:36 95 10/22/24 18:33 117/65 107/67 118/71 10/22/24 18:29 118/71 95 10/22/24 17:59 97 10/22/24 15:10 98 Intake and Output 10/22/24 10/23/24 10/23/24 22:59 06:59 14:59 Other: Voiding Method Bedside Commode Bedside Commode Bedside Commode # Voids 0 Weight 84.822 kg GENERAL EXAM: Alert, disheveled 69-year-old female, on 4 L nasal cannula, comfortable in no apparent distress. HEAD: Normocephalic. EYES: Normal reaction of pupils, equal size. NOSE: Clear with pink turbinates. THROAT: No erythema or exudates. NECK: No masses, no JVD. CHEST: No chest wall deformity. LUNGS: Equal air entry with bilateral scattered rhonchi. CVS: S1 and S2 normal with no audible murmur, regular rhythm. ABDOMEN: No hepatosplenomegaly, normal bowel sounds, no guarding or rigidity. SPINE: No scoliosis or deformity SKIN: No rashes CENTRAL NERVOUS SYSTEM: No focal deficits, tone is normal in all 4 extremities. EXTREMITIES: There is trace peripheral edema. No clubbing, no cyanosis. Peripheral pulses are intact. Results - Laboratory Findings CBC and BMP: 10/23/24 07:56 10/23/24 07:56 Abnormal lab findings: Abnormal Labs 10/22/24 10/22/24 10/22/24 14:15 14:15 14:15 MCV 74.4 L MCH 24.2 L RDW 23.4 H Lymphocytes # 0.8 L Sodium 128 L Chloride 88 L Glucose 109 H Osmolality 274 L Calcium Magnesium AST 104 H ALT 59 H Total Protein 5.4 L Albumin 3.2 L Cortisol SARS-CoV-2 (PCR) 10/22/24 10/22/24 10/22/24 16:20 18:43 21:00 MCV MCH RDW Lymphocytes # Sodium 130 L Chloride 91 L Glucose Osmolality Calcium 8.3 L Magnesium AST ALT Total Protein Albumin Cortisol 28.5 H SARS-CoV-2 (PCR) Detected A 10/23/24 10/23/24 07:56 07:56 MCV 77.1 L MCH 23.9 L RDW 23.8 H Lymphocytes # 0.8 L Sodium 130 L Chloride 92 L Glucose 107 H Osmolality Calcium Magnesium 1.5 L AST 117 H ALT 60 H Total Protein 5.6 L Albumin 3.3 L Cortisol SARS-CoV-2 (PCR) - Diagnostic Findings Chest x-ray: image reviewed Assessment and Plan Assessment: Trip and fall at home while up with walker, CT scan of the brain showed no acute intracranial process COVID infection testing +10 days ago treated with Paxlovid in the outpatient setting Acute hypoxemic respiratory failure secondary to COVID-19 infection, COPD exacerbation Chronic and ongoing tobacco dependence of greater than 50 years Multiple sclerosis with limited mobility and utilizes a walker Chronic obstructive pulmonary disease maintained on Trelegy and albuterol, not oxygen dependent History of pulmonary embolism, anticoagulated with Xarelto Spinal stenosis History of spinal cord cyst stimulator and morphine pump for pain control Plan: The patient was seen and evaluated Imaging, labs and medications reviewed Continue Symbicort, Spiriva, albuterol Continue Decadron Outside the window for remdesivir Anticoagulated with Xarelto Educated regarding smoking cessation NicoDerm patch is offered Titrate the FiO2 as tolerated We will continue to follow and make further recommendations based on her clinical status I have personally seen and examined the patient, performed the documentation and the assessment and plan as written. Number of minutes spent on the visit: 20 Dictation was produced using [employer] dictation software. Please excuse any grammatical, word or spelling errors. Time with Patient: Greater than 30
[2024-10-23] MEDS: ALBUTEROL HFA INHALER INHALATION SCH (16:10)
--- NOTE | 2024-10-23 16:34 | CA ---
Transthoracic Echo Report Name: Lesly Bravo Age: 69 Gender: F : 1955 Exam Date: 10/23/2024 12:39 Exam Location: [facility] Ht (in): 65 Wt (lb): 187 Ordering Physician: Jarvis Snyder MD Attending/Referring Phys: Retail Performance Specialist Rita Ornelas, LUTHER Procedure CPT: Indications: Pre-syncope Cardiac Hx: Technical Quality: Fair Contrast 1: Total Dose (mL): Contrast 2: Total Dose (mL): MEASUREMENTS (Male / Female) Normal Values 2D ECHO LV Diastolic Diameter PLAX 3.9 cm 4.2 - 5.9 / 3.9 - 5.3 cm LV Systolic Diameter PLAX 2.3 cm IVS Diastolic Thickness 1.1 cm 0.6 - 1.0 / 0.6 - 0.9 cm LVPW Diastolic Thickness 1.1 cm 0.6 - 1.0 / 0.6 - 0.9 cm LV Relative Wall Thickness 0.6 RV Internal Dim ED PLAX 2.4 cm LA Systolic Diameter LX 4.0 cm 3.0 - 4.0 / 2.7 - 3.8 cm LA Volume 69.1 cm??? 18 - 58 / 22 - 52 cm??? LA Volume Index 34.5 cm???/m??? 16 - 28 cm???/m??? M-MODE Aortic Root Diameter MM 2.9 cm LA Systolic Diameter MM 3.8 cm LA Ao Ratio MM 1.3 AV Cusp Separation MM 2.0 cm DOPPLER MV Area PHT 3.0 cm??? Mitral E Point Velocity 114.9 cm/s Mitral A Point Velocity 99.8 cm/s Mitral E to A Ratio 1.2 MV Deceleration Time 252.7 ms TR Peak Velocity 224.5 cm/s TR Peak Gradient 20.2 mmHg FINDINGS Left Ventricle Left ventricular ejection fraction is estimated at 50-55 %. Mildly increased septal wall thickness. Mildly increased posterior wall thickness. No obvious regional wall motion abnormalities. Left ventricular cavity size normal. Right Ventricle Normal right ventricular size and function. Right ventricular systolic pressure within normal limits. Right Atrium Mild right atrial dilatation. Left Atrium Mildly increased left atrial diameter. Moderately increased left atrial volume. Mitral Valve Structurally normal mitral valve. Trace mitral regurgitation. No mitral stenosis. Aortic Valve Trileaflet aortic valve. No aortic valve stenosis or regurgitation. Tricuspid Valve No evidence of pulmonary hypertension. Structurally normal tricuspid valve. No tricuspid stenosis. Trace tricuspid regurgitation. Pulmonic Valve Structurally normal pulmonic valve. Trace pulmonic regurgitation. No pulmonic stenosis. Pericardium No pericardial or pleural effusion. Aorta Normal size aortic root and proximal ascending aorta. CONCLUSIONS Normal LV function Left atrial enlargement Previewed by: Dr. Berlin Sebastian MD (Electronically Signed) Final Date: 23 October 2024 16:33
[2024-10-24 05:48] LABS: Anisocytosis Moderate; Basophils % (A) 0 %; Eosinophils % (A) 0 %; HGB 10.7 gm/dL (11.4-16.0); Hypochromasia Moderate; Lymphocytes # (A) 0.6 k/uL (1.0-4.8); Lymphocytes % (A) 16 %; MCH 23.9 pg (25.0-35.0); MCHC 31.4 g/dL (31.0-37.0); Mean Platelet Volume 7.2; Microcytosis Marked; Monocytes # (A) 0.2 k/uL (0-1.0); Monocytes % (A) 5 %; Neutrophils # (A) 2.9 k/uL (1.3-7.7); Neutrophils % (A) 79 %; Platelet Count 296 k/uL (150-450); RBC 4.47 m/uL (3.80-5.40); RDW 23.6 % (11.5-15.5); WBC 3.8 k/uL (3.8-10.6)
[2024-10-24 06:01] LABS: ALT 55 U/L (4-34); AST 74 U/L (14-36); African American GFR (CKD) >90 (>60 ml/min/1.73 sqM); Albumin 2.7 g/dL (3.5-5.0); Albumin/Globulin Ratio 1.3; Alkaline Phosphatase 70 U/L (38-126); Anion Gap 6 mmol/L; Blood Urea Nitrogen 9 mg/dL (7-17); Calcium 8.3 mg/dL (8.4-10.2); Carbon Dioxide 30 mmol/L (22-30); Chloride 91 mmol/L (98-107); Globulin 2.1 g/dL; Glucose 215 mg/dL (74-99); Magnesium 2.1 mg/dL (1.6-2.3); Non-African American GFR(CKD) >90 (>60 ml/min/1.73 sqM); Potassium 3.6 mmol/L (3.5-5.1); Sodium 127 mmol/L (137-145); Total Bilirubin 0.4 mg/dL (0.2-1.3); Total Protein 4.8 g/dL (6.3-8.2)
--- NOTE | 2024-10-24 10:48 | US ---
EXAMINATION TYPE: US chest DATE OF EXAM: 10/24/2024 COMPARISON: NONE CLINICAL INDICATION: Female, 69 years old with history of plueral effusion; Patient states there is n o fluid; patient denies any signs, or symptoms TECHNIQUE: Grayscale imaging of the chest. Targeted ultrasound of the posterior lower bilateral rudolph thoraces FINDINGS: EXAM MEASUREMENTS: Right Pleural Effusion pocket size: 0 cm Right skin surface to fluid distance: cm Left Pleural Effusion pocket size: 0 cm Left skin surface to fluid distance: cm No markings left Pulmonologists are able to review the images in the patient?s EMR. IMPRESSIONS: As above [facility], , 10/24/2024 10:46 AM
--- NOTE | 2024-10-24 13:56 | P.PN ---
Subjective Progress Note Date: 10/24/24 This is a 69-year-old female patient who has a history of pulmonary embolism anticoagulated with Xarelto, multiple sclerosis with chronic dysphagia, chronic pain syndrome with pain stimulator and morphine pump, spinal stenosis, fibromyalgia, seizure disorder, chronic tobacco dependence, chronic obstructive pulmonary disease. She had tested positive for COVID 10 days ago and was treated with Paxlovid. She has very limited mobility due to her MS. She presented here to the emergency room yesterday after sustaining a fall hitting her head on a table with loss of consciousness. CT scan of the brain and spine revealed no evidence of acute intracranial process. No evidence of fracture. Chest x-ray revealed cardiomegaly with pulmonary vascular congestion and bilateral pleural effusions. White count 5.2. Hemoglobin 12.3. Platelets 284. Sodium 130. Potassium 3.6. Bicarb 29. BUN 10. Creatinine 0.55. Glucose 107. COVID screen positive. She is seen today in consultation on the regular medical floor. She is currently sitting up in bed. Awake and alert in no acute distress. She is maintaining O2 saturations in the 90s on 4 L/min per nasal cannula. She did have a temperature of 100.2. Blood pressure stable. The patient is seen today October 24, 2024 in follow-up on the regular medical floor. She is currently sitting up in bed. Awake and alert in no acute distress. Feeling better today compared to yesterday. She is maintaining good O2 saturations in the 90s on 4 L/min per nasal cannula. She is afebrile. Hemodynamically stable. Ultrasound of the chest ordered by medicine revealed 0 cm of pleural effusion bilaterally. White count 3.8. Hemoglobin 10.7. Platelets 296. Sodium 127. Potassium 3.6. Bicarb 30. BUN 9. Creatinine 0.56. Glucose 215. She is continued on Symbicort, albuterol, Spiriva. Continued on Decadron. NicoDerm patch in place. Anticoagulated with Xarelto. Objective - Vital Signs Vital signs: Vital Signs Temp 97.7 F 10/24/24 00:34 Pulse 70 10/24/24 07:10 Resp 18 10/24/24 07:10 BP 98/61 10/24/24 07:10 Pulse Ox 94 L 10/24/24 07:10 FiO2 Intake & Output 02/02/0910/24/24 10/24/24 18:59 06:59 18:59 Intake Total 100 Output Total 600 Balance 100 -600 Intake: Oral 100 Output: Urine 600 Straight 600 Other: Voiding Method Bedside Commode Bedside Commode Bedside Commode External Catheter # Voids 1 1 1 # Bowel Movements 3 2 1 - Exam GENERAL EXAM: Alert, pleasant 69-year-old female, on 4 L nasal cannula, in no apparent distress. HEAD: Normocephalic. EYES: Normal reaction of pupils, equal size. NOSE: Clear with pink turbinates. THROAT: No erythema or exudates. NECK: No masses, no JVD. CHEST: No chest wall deformity. LUNGS: Equal air entry with bilateral scattered rhonchi. CVS: S1 and S2 normal with no audible murmur, regular rhythm. ABDOMEN: No hepatosplenomegaly, normal bowel sounds, no guarding or rigidity. SPINE: No scoliosis or deformity SKIN: No rashes CENTRAL NERVOUS SYSTEM: No focal deficits, tone is normal in all 4 extremities. EXTREMITIES: There is trace peripheral edema. No clubbing, no cyanosis. Peripheral pulses are intact. - Labs CBC & Chem 7: 10/24/24 04:49 10/24/24 04:49 Labs: Abnormal Lab Results - Last 24 Hours (Table) 10/23/24 10/24/24 10/24/24 Range/Units 07:56 04:49 04:49 Hgb 10.7 L (11.4-16.0) gm/dL MCV 76.0 L (80.0-100.0) fL MCH 23.9 L (25.0-35.0) pg RDW 23.6 H (11.5-15.5) % Lymphocytes # 0.6 L (1.0-4.8) k/uL Sodium 127 L (137-145) mmol/L Chloride 91 L (98-107) mmol/L Glucose 215 H (74-99) mg/dL Calcium 8.3 L (8.4-10.2) mg/dL AST 74 H (14-36) U/L ALT 55 H (4-34) U/L NT-Pro-B Natriuret Pep 281 H (0-125) pg/mL Total Protein 4.8 L (6.3-8.2) g/dL Albumin 2.7 L (3.5-5.0) g/dL Assessment and Plan Assessment: Trip and fall at home while up with walker, CT scan of the brain showed no acute intracranial process COVID infection testing +10 days ago treated with Paxlovid in the outpatient setting Acute hypoxemic respiratory failure secondary to COVID-19 infection, COPD exacerbation Chronic and ongoing tobacco dependence of greater than 50 years Multiple sclerosis with limited mobility and utilizes a walker Chronic obstructive pulmonary disease maintained on Trelegy and albuterol, not oxygen dependent History of pulmonary embolism, anticoagulated with Xarelto Spinal stenosis History of spinal cord stimulator and morphine pump for pain control Plan: The patient was seen and evaluated Ultrasound of the chest, labs and medications reviewed No pleural effusions Continue Symbicort, Spiriva, albuterol Continue Decadron Anticoagulated with Xarelto Educated regarding smoking cessation NicoDerm patch applied Titrate the FiO2 as tolerated We will continue to follow I have personally seen and examined the patient, performed the documentation and the assessment and plan as written. Number of minutes spent on the visit: 10 Dictation was produced using [employer] dictation software. Please excuse any grammatical, word or spelling errors.
--- NOTE | 2024-10-24 17:04 | P.PN ---
Subjective Progress Note Date: 10/24/24 Hospital Course: Patient is a 69-year-old female with multiple sclerosis, chronic narcotic dependence on morphine pain pump, history of pulmonary embolism on Xarelto, seizure disorder, COPD, sleep apnea on CPAP/BiPAP presenting with fall and dizziness. Patient states several days ago she lost balance tripped and fell forward and hit the front of her head. She states she did not lose any consciousness. She does not remember the last time she is fell down. Normally ambulates with a walker or uses a wheelchair. Last night patient states she felt dizzy after getting up from a seated position. She states has been happening more lately. States that she felt better after sitting down. Admits to feeling nauseous and having a headache. Patient denies any syncope, fever, chills, chest pain, history of seizures, shortness of breath, abdominal pain, urinary symptoms. EKG independently interpreted showing sinus rhythm, flattened T waves, rate 95 bpm, QTc 408 CT head and neck showing no acute intracranial process, nonspecific white matter changes, no evidence of cervical spine fracture, mild multilevel degenerative disc disease WBC 4.6, Hgb 11.4, platelet 265, sodium 128, potassium 3.5, chloride 88, glucose 109, AST 104, ALT 59, total protein 5.4, albumin 3.3 T98.6 F, MI 86, 13, BP 118/62, O2 90% on 2 L nasal Cannula ED documentation reviewed. Review of systems: Pertinent positives and negatives as discussed in HPI, a complete review of systems was performed and all other systems are negative. Social history: Tobacco: Current 56-year pack smoker Alcohol: Rare Recreational drugs: Denies recreational drug use Subjective: Patient seen and examined at bedside. Patient spiked fever overnight. States she feels worse. Pertinent positives and negatives as discussed above, a complete review of systems was performed and all other systems are negative. Vitals: Signs Reviewed Physical Exam: General: nontoxic, no distress, appears at stated age Derm: warm, dry, intact Head: atraumatic, normocephalic, symmetric Eyes: EOMI, anicteric sclera Mouth: no lip lesion, mucus membranes moist Cardiovascular: S1 S2 reg, no murmur, rubs, or gallops Lungs: CTA bilateral, no rhonchi, no rales, no accessory muscle use Abdominal: soft, non-tender to palpataion, no appreciable organomegaly, morphine pain pump Extremities: no gross muscle atrophy, no edema, no contractures Neuro: Alert, Oriented, CNII-XII grossly intact, gait normal Psych: well appearing, appropriate affect Data Received Today: Pertinent Labs: WBC 3.8, sodium 127, glucose 215, serum osmolality 274 Imaging: Chest ultrasound showing no pleural effusion Assessment and Plan: Patient is a 69-year-old female with multiple sclerosis, chronic narcotic dependence on morphine pain pump, COPD, history of pulmonary embolism on Xarelto, seizure disorder, sleep apnea on CPAP/BiPAP presenting with fall along with acute hypoxic respiratory failure secondary to COVID-pneumonia. #. Acute hypoxic respiratory failure secondary to COVID pneumonia #. Pulmonary edema #. Bilateral pleural effusion CXR independently interpreted displaying pulmonary vascular congestion, b ilateral pleural effusion, cardiomegaly Decadron 6 mg IVP for 10 days (2 of 10) Acetaminophen 650 mg p.o. every 6 hours as needed for fever NS @ 25cc/hr Oxygen 4L NC, plan to titrate down IV Lasix 40 mg ordered by pulmonology proBNP 281 Procalcitonin 0.14 Pulmonology note reviewed, chest ultrasound showing no pleural effusion, continue current management #. Mild euvolemic hyponatremia Sodium 128 on admission Admits to nausea, headache Was given 1 L bolus by ED Random cortisol elevated 28.5 TSH 1.220 Serum osmolarity 274, urine osmolarity pending, urine sodium pending Seizure precautions Discontinue fluids #. Hypomagnesemia, resolved Mg 1.5 Replace with 2 g IV mag sulfate #. History of recent fall #. Lightheadedness CT head and neck showing no acute intracranial process, nonspecific white matter changes, no evidence of cervical spine fracture, mild multilevel degenerative disc disease orthostatics negative Echocardiogram LVEF 50-55%, left atrial enlargement Fall precautions Cardiac monitoring PT/OT Holding amitriptyline #. Transaminitis Follow-up with CMP Chronic: #. History of PE: Resume Xarelto 20 mg PO QD #. Multiple sclerosis: Dalfampridine 10 mg PO q12hr #. Nicotine dependence: Nicotine patch daily #. Restless leg syndrome: Gabapentin 300 mg AGUSTINA BID and Ropinirole 4 mg PO BID #. GERD Protonix 40mg PO BID #. Chronic pain: Morphine pain pump #. COPD, not in acute exacerbation, not O2 dependent: Symbicort 160-4.5 mcg, Spiriva 2.5mcg daily, albuterol 2.5mg prn, 4 L nasal cannula F: NS at 25 cc/HR E: Replete electrolytes as needed N: Regular diet A: PT/OT, ambulates with walker DVT prophylaxis: Xarelto 20mg PO QD Code status: Full code Anticipated discharge place: Pending clinical course Anticipated discharge time: Pending clinical course Jarvis Snyder MD PGY-1 IM Dictation was produced using [employer] dictation software. please excuse any gra mmatical, word or spelling errors. I have seen and evaluated the patient today. Discussed with the resident and agree with the residents finding and plan as documented in the resident's note. Changes highlighted in blue font. Objective - Vital Signs Vital signs: Vital Signs Temp 97.7 F 10/24/24 00:34 Pulse 70 10/24/24 07:10 Resp 18 10/24/24 07:10 BP 98/61 10/24/24 07:10 Pulse Ox 94 L 10/24/24 07:10 FiO2 Intake & Output 10/23/24 10/24/24 10/24/24 18:59 06:59 18:59 Intake Total 100 Output Total 600 Balance 100 -600 Intake: Oral 100 Output: Urine 600 Straight 600 Other: Voiding Method Bedside Commode Bedside Commode External Catheter # Voids 1 1 # Bowel Movements 3 2 - Labs CBC & Chem 7: 10/24/24 04:49 10/24/24 04:49 Labs: Abnormal Lab Results - Last 24 Hours (Table) 10/23/24 10/23/24 10/23/24 Range/Units 07:56 07:56 07:56 Hgb (11.4-16.0) gm/dL MCV 77.1 L (80.0-100.0) fL MCH 23.9 L (25.0-35.0) pg RDW 23.8 H (11.5-15.5) % Lymphocytes # 0.8 L (1.0-4.8) k/uL Sodium 130 L (137-145) mmol/L Chloride 92 L (98-107) mmol/L Glucose 107 H (74-99) mg/dL Calcium (8.4-10.2) mg/dL Magnesium 1.5 L (1.6-2.3) mg/dL AST 117 H (14-36) U/L ALT 60 H (4-34) U/L NT-Pro-B Natriuret Pep 281 H (0-125) pg/mL Total Protein 5.6 L (6.3-8.2) g/dL Albumin 3.3 L (3.5-5.0) g/dL 10/24/24 10/24/24 Range/Units 04:49 04:49 Hgb 10.7 L (11.4-16.0) gm/dL MCV 76.0 L (80.0-100.0) fL MCH 23.9 L (25.0-35.0) pg RDW 23.6 H (11.5-15.5) % Lymphocytes # 0.6 L (1.0-4.8) k/uL Sodium 127 L (137-145) mmol/L Chloride 91 L (98-107) mmol/L Glucose 215 H (74-99) mg/dL Calcium 8.3 L (8.4-10.2) mg/dL Magnesium (1.6-2.3) mg/dL AST 74 H (14-36) U/L ALT 55 H (4-34) U/L NT-Pro-B Natriuret Pep (0-125) pg/mL Total Protein 4.8 L (6.3-8.2) g/dL Albumin 2.7 L (3.5-5.0) g/dL
[2024-10-25 07:59] LABS: Anisocytosis Moderate; Basophils % (A) 0 %; Eosinophils % (A) 0 %; HCT 35.2 % (34.0-46.0); HGB 11.1 gm/dL (11.4-16.0); Hypochromasia Moderate; Lymphocytes # (A) 0.7 k/uL (1.0-4.8); Lymphocytes % (A) 12 %; MCHC 31.6 g/dL (31.0-37.0); MCV 75.9 fL (80.0-100.0); Mean Platelet Volume 7.2; Microcytosis Marked; Monocytes # (A) 0.2 k/uL (0-1.0); Monocytes % (A) 3 %; Neutrophils # (A) 5.2 k/uL (1.3-7.7); Neutrophils % (A) 84 %; Platelet Count 394 k/uL (150-450); RBC 4.63 m/uL (3.80-5.40); RDW 23.5 % (11.5-15.5); WBC 6.1 k/uL (3.8-10.6)
[2024-10-25 08:20] LABS: ALT 47 U/L (4-34); AST 55 U/L (14-36); African American GFR (CKD) >90 (>60 ml/min/1.73 sqM); Albumin 3.1 g/dL (3.5-5.0); Albumin/Globulin Ratio 1.4; Alkaline Phosphatase 78 U/L (38-126); Anion Gap 6 mmol/L; Blood Urea Nitrogen 10 mg/dL (7-17); Carbon Dioxide 30 mmol/L (22-30); Chloride 94 mmol/L (98-107); Globulin 2.2 g/dL; Glucose 92 mg/dL (74-99); Magnesium 1.9 mg/dL (1.6-2.3); Non-African American GFR(CKD) >90 (>60 ml/min/1.73 sqM); Potassium 3.9 mmol/L (3.5-5.1); Sodium 130 mmol/L (137-145); Total Bilirubin 0.5 mg/dL (0.2-1.3); Total Protein 5.3 g/dL (6.3-8.2)
--- NOTE | 2024-10-25 09:23 | XR ---
EXAMINATION TYPE: XR chest 1V portable DATE OF EXAM: 10/25/2024 9:07 AM COMPARISON: 525 CLINICAL INDICATION: Female, 69 years old with history of Hypoxemia, TECHNIQUE: XR chest 1V portable views of the chest are obtained. FINDINGS: Demonstrated are scattered senescent parenchymal change. Patchy upper lobe and right lower lobe infiltrates. Correlate for underlying pneumonia. The heart is stable. Hilar and mediastinal structures are within normal limits. Degenerative changes are seen of the dorsal spine. IMPRESSION: 1. Patchy upper lobe and right lower lobe infiltrates. Correlate for underlying pneumonia. [facility], , 10/25/2024 9:21 AM
--- NOTE | 2024-10-25 13:00 | P.PN ---
Subjective Progress Note Date: 10/25/24 This is a 69-year-old female patient who has a history of pulmonary embolism anticoagulated with Xarelto, multiple sclerosis with chronic dysphagia, chronic pain syndrome with pain stimulator and morphine pump, spinal stenosis, fibromyalgia, seizure disorder, chronic tobacco dependence, chronic obstructive pulmonary disease. She had tested positive for COVID 10 days ago and was treated with Paxlovid. She has very limited mobility due to her MS. She presented here to the emergency room yesterday after sustaining a fall hitting her head on a table with loss of consciousness. CT scan of the brain and spine revealed no evidence of acute intracranial process. No evidence of fracture. Chest x-ray revealed cardiomegaly with pulmonary vascular congestion and bilateral pleural effusions. White count 5.2. Hemoglobin 12.3. Platelets 284. Sodium 130. Potassium 3.6. Bicarb 29. BUN 10. Creatinine 0.55. Glucose 107. COVID screen positive. She is seen today in consultation on the regular medical floor. She is currently sitting up in bed. Awake and alert in no acute distress. She is maintaining O2 saturations in the 90s on 4 L/min per nasal cannula. She did have a temperature of 100.2. Blood pressure stable. The patient is seen today October 24, 2024 in follow-up on the regular medical floor. She is currently sitting up in bed. Awake and alert in no acute distress. Feeling better today compared to yesterday. She is maintaining good O2 saturations in the 90s on 4 L/min per nasal cannula. She is afebrile. Hemodynamically stable. Ultrasound of the chest ordered by medicine revealed 0 cm of pleural effusion bilaterally. White count 3.8. Hemoglobin 10.7. Platelets 296. Sodium 127. Potassium 3.6. Bicarb 30. BUN 9. Creatinine 0.56. Glucose 215. She is continued on Symbicort, albuterol, Spiriva. Continued on Decadron. NicoDerm patch in place. Anticoagulated with Xarelto. The patient is seen today October 25, 2024 in follow-up on the regular medical floor. She is awake and alert in no acute distress. She is maintaining good O2 saturations in the 90s on 4 L/min per nasal cannula. Apparently earlier this morning she was found naked and without her oxygen on with O2 saturations in the 80s. She is oriented currently. She remains on Symbicort, Spiriva, albuterol, Decadron. NicoDerm patch in place. Anticoagulated with Xarelto. White count 6.1. Hemoglobin 11.1. Platelets 394. Sodium 130. Potassium 3.9. Bicarb 30. BUN 10. Creatinine 0.57. Glucose 92. AST 55. ALT 47. Objective - Vital Signs Vital signs: Vital Signs Temp 99.6 F 10/25/24 07:23 Pulse 99 10/25/24 07:23 Resp 22 10/25/24 07:23 BP 151/72 10/25/24 07:23 Pulse Ox 91 L 10/25/24 08:08 FiO2 Intake & Output 10/24/24 10/25/24 10/25/24 18:59 06:59 18:59 Output Total 400 Balance -400 Output: Urine 400 Other: Voiding Method Bedside Commode Bedside Commode Bedside Commode # Voids 2 # Bowel Movements 1 1 - Exam GENERAL EXAM: Alert, 69-year-old female, sitting up in bed, on 4 L nasal cannula, in no apparent distress. HEAD: Normocephalic. EYES: Normal reaction of pupils, equal size. NOSE: Clear with pink turbinates. THROAT: No erythema or exudates. NECK: No masses, no JVD. CHEST: No chest wall deformity. LUNGS: Equal air entry with bilateral scattered rhonchi. CVS: S1 and S2 normal with no audible murmur, regular rhythm. ABDOMEN: No hepatosplenomegaly, normal bowel sounds, no guarding or rigidity. SPINE: No scoliosis or deformity SKIN: No rashes CENTRAL NERVOUS SYSTEM: No focal deficits, tone is normal in all 4 extremities. EXTREMITIES: There is trace peripheral edema. No clubbing, no cyanosis. Peripheral pulses are intact. - Labs CBC & Chem 7: 10/25/24 07:38 10/25/24 07:38 Labs: Abnormal Lab Results - Last 24 Hours (Table) 10/25/24 10/25/24 Range/Units 07:38 07:38 Hgb 11.1 L (11.4-16.0) gm/dL MCV 75.9 L (80.0-100.0) fL MCH 24.0 L (25.0-35.0) pg RDW 23.5 H (11.5-15.5) % Lymphocytes # 0.7 L (1.0-4.8) k/uL Sodium 130 L (137-145) mmol/L Chloride 94 L (98-107) mmol/L AST 55 H (14-36) U/L ALT 47 H (4-34) U/L Total Protein 5.3 L (6.3-8.2) g/dL Albumin 3.1 L (3.5-5.0) g/dL Assessment and Plan Assessment: Trip and fall at home while up with walker, CT scan of the brain showed no acute intracranial process COVID infection testing +10 days ago treated with Paxlovid in the outpatient setting Acute hypoxemic respiratory failure secondary to COVID-19 infection, COPD exacerbation Chronic and ongoing tobacco dependence of greater than 50 years Multiple sclerosis with limited mobility and utilizes a walker Chronic obstructive pulmonary disease maintained on Trelegy and albuterol, not oxygen dependent History of pulmonary embolism, anticoagulated with Xarelto Spinal stenosis History of spinal cord stimulator and morphine pump for pain control Plan: The patient was seen and evaluated Labs and medications reviewed Continue Symbicort, Spiriva, albuterol Continue Decadron for a total of 10 days Anticoagulated with Xarelto Educated regarding smoking cessation NicoDerm patch in place Titrate the FiO2 as tolerated May require home oxygen Plan is for home with [facility] to follow I have personally seen and examined the patient, performed the documentation and the assessment and plan as written. Number of minutes spent on the visit: 10 Dictation was produced using [employer] dictation software. Please excuse any grammatical, word or spelling errors.
--- NOTE | 2024-10-25 16:52 | P.PN ---
Subjective Progress Note Date: 10/25/24 Hospital Course: Patient is a 69-year-old female with multiple sclerosis, chronic narcotic dependence on morphine pain pump, history of pulmonary embolism on Xarelto, seizure disorder, COPD, sleep apnea on CPAP/BiPAP presenting with fall and dizziness. Patient states several days ago she lost balance tripped and fell forward and hit the front of her head. She states she did not lose any consciousness. She does not remember the last time she is fell down. Normally ambulates with a walker or uses a wheelchair. Last night patient states she felt dizzy after getting up from a seated position. She states has been happening more lately. States that she felt better after sitting down. Admits to feeling nauseous and having a headache. Patient denies any syncope, fever, chills, chest pain, history of seizures, shortness of breath, abdominal pain, urinary symptoms. EKG independently interpreted showing sinus rhythm, flattened T waves, rate 95 bpm, QTc 408 CT head and neck showing no acute intracranial process, nonspecific white matter changes, no evidence of cervical spine fracture, mild multilevel degenerative disc disease WBC 4.6, Hgb 11.4, platelet 265, sodium 128, potassium 3.5, chloride 88, glucose 109, AST 104, ALT 59, total protein 5.4, albumin 3.3 T98.6 F, MA 86, 13, BP 118/62, O2 90% on 2 L nasal Cannula ED documentation reviewed. Review of systems: Pertinent positives and negatives as discussed in HPI, a complete review of systems was performed and all other systems are negative. Social history: Tobacco: Current 56-year pack smoker Alcohol: Rare Recreational drugs: Denies recreational drug use Subjective: Patient seen and examined at bedside. Patient spiked fever overnight. States she feels worse. Pertinent positives and negatives as discussed above, a complete review of systems was performed and all other systems are negative. Vitals: Signs Reviewed Physical Exam: General: nontoxic, no distress, appears at stated age Derm: warm, dry, intact Head: atraumatic, normocephalic, symmetric Eyes: EOMI, anicteric sclera Mouth: no lip lesion, mucus membranes moist Cardiovascular: S1 S2 reg, no murmur, rubs, or gallops Lungs: CTA bilateral, no rhonchi, no rales, no accessory muscle use Abdominal: soft, non-tender to palpataion, no appreciable organomegaly, morphine pain pump Extremities: no gross muscle atrophy, no edema, no contractures Neuro: Alert, Oriented, CNII-XII grossly intact, gait normal Psych: well appearing, appropriate affect Data Received Today: Pertinent Labs: WBC 6.1, sodium 130, glucose 92 Imaging: CXR independently interpreted showing possible small left-sided pleural effusion, pulmonary infiltrates Assessment and Plan: Patient is a 69-year-old female with multiple sclerosis, chronic narcotic dep endence on morphine pain pump, COPD, history of pulmonary embolism on Xarelto, seizure disorder, sleep apnea on CPAP/BiPAP presenting with fall along with acute hypoxic respiratory failure secondary to COVID-pneumonia. #. Acute hypoxic respiratory failure secondary to COVID pneumonia #. Pulmonary edema #. Bilateral pleural effusion CXR independently interpreted displaying pulmonary vascular congestion, bilateral pleural effusion, cardiomegaly Decadron 6 mg IVP for 10 days (3 of 10) Acetaminophen 650 mg p.o. every 6 hours as needed for fever NS @ 25cc/hr Oxygen 4L NC, plan to titrate down, may require home oxygen IV Lasix 40 mg ordered by pulmonology proBNP 281 Procalcitonin 0.14 Pulmonology note reviewed, chest ultrasound showing no pleural effusion, continue current management #. Mild euvolemic hyponatremia Sodium 128 on admission Admits to nausea, headache Was given 1 L bolus by ED Random cortisol elevated 28.5 TSH 1.220 Serum osmolarity 274, urine osmolarity pending, urine sodium pending Seizure precautions Discontinue fluids #. Hypomagnesemia, resolved Mg 1.5 Replace with 2 g IV mag sulfate #. History of recent fall #. Lightheadedness CT head and neck showing no acute intracranial process, nonspecific white matter changes, no evidence of cervical spine fracture, mild multilevel degenerative disc disease orthostatics negative Echocardiogram LVEF 50-55%, left atrial enlargement Fall precautions Cardiac monitoring PT/OT Holding amitriptyline #. Transaminitis Follow-up with CMP Chronic: #. History of PE: Resume Xarelto 20 mg PO QD #. Multiple sclerosis: Dalfampridine 10 mg PO q12hr #. Nicotine dependence: Nicotine patch daily #. Restless leg syndrome: Gabapentin 300 mg AGUSTINA BID and Ropinirole 4 mg PO BID #. GERD Protonix 40mg PO BID #. Chronic pain: Morphine pain pump #. COPD, not in acute exacerbation, not O2 dependent: Symbicort 160-4.5 mcg, Spiriva 2.5mcg daily, albuterol 2.5mg prn, 4 L nasal cannula F: N/A E: Replete electrolytes as needed N: Regular diet A: PT/OT, ambulates with walker DVT prophylaxis: Xarelto 20mg PO QD Code status: Full code Anticipated discharge place: Pending clinical course Anticipated discharge time: Pending clinical course Jarvis Snyder MD PGY-1 IM Dictation was produced using [employer] dictation software. please excuse any grammatical, word or spelling errors. I saw and evaluated the patient during the fernandez and critical portions of this encounter, and discussed the case in detail with the resident author of this note, I agree with the Assessment and Plan, and my changes, if any, are highlighted in blue. Objective - Vital Signs Vital signs: Vital Signs Temp 98.8 F 10/25/24 01:10 Pulse 73 10/25/24 01:10 Resp 18 10/25/24 01:10 BP 104/65 10/25/24 01:10 Pulse Ox 95 10/25/24 01:10 FiO2 Intake & Output 10/24/24 10/25/24 10/25/24 18:59 06:59 18:59 Output Total 400 Balance -400 Output: Urine 400 Other: Voiding Method Bedside Commode Bedside Commode # Voids 2 # Bowel Movements 1 1 - Labs CBC & Chem 7: 10/25/24 07:38 10/25/24 07:38
--- NOTE | 2024-10-26 11:02 | P.PN ---
Subjective Progress Note Date: 10/26/24 Hospital Course: Patient is a 69-year-old female with multiple sclerosis, chronic narcotic dependence on morphine pain pump, history of pulmonary embolism on Xarelto, seizure disorder, COPD, sleep apnea on CPAP/BiPAP presenting with fall and dizziness. Patient states several days ago she lost balance tripped and fell forward and hit the front of her head. She states she did not lose any consciousness. She does not remember the last time she is fell down. Normally ambulates with a walker or uses a wheelchair. Last night patient states she felt dizzy after getting up from a seated position. She states has been happening more lately. States that she felt better after sitting down. Admits to feeling nauseous and having a headache. Patient denies any syncope, fever, chills, chest pain, history of seizures, shortness of breath, abdominal pain, urinary symptoms. EKG independently interpreted showing sinus rhythm, flattened T waves, rate 95 bpm, QTc 408 CT head and neck showing no acute intracranial process, nonspecific white matter changes, no evidence of cervical spine fracture, mild multilevel degenerative disc disease WBC 4.6, Hgb 11.4, platelet 265, sodium 128, potassium 3.5, chloride 88, glucose 109, AST 104, ALT 59, total protein 5.4, albumin 3.3 T98.6 F, RI 86, 13, BP 118/62, O2 90% on 2 L nasal Cannula ED documentation reviewed. Review of systems: Pertinent positives and negatives as discussed in HPI, a complete review of systems was performed and all other systems are negative. Social history: Tobacco: Current 56-year pack smoker Alcohol: Rare Recreational drugs: Denies recreational drug use Subjective: Patient seen and examined at bedside. No new complaints today. O2 saturation is 89% on 2L NC. Discussed with nursing that goal is > 88%. Physical Exam: Gen: In NAD, non-toxic HEENT: normocephalic, atraumatic, hearing acuity is intant, mucous membranes moist CVS: perfusing all extremities well, no pitting edema, Respiratory: symmetric chest expansion, no accessory muscle use, GI: soft, NTTP, ND, : no suprapubic tenderness, no CVA tenderness MSK/Derm: no rashes, cyanosis Neuro: CN II-XII intact, no motor weakness, Psych: cooperative, euthymic mood, judgment and insight is intact Assessment and Plan: Patient is a 69-year-old female with multiple sclerosis, chronic narcotic dependence on morphine pain pump, COPD, history of pulmonary embolism on Xarelto, seizure disorder, sleep apnea on CPAP/BiPAP presenting with fall along with acute hypoxic respiratory failure secondary to COVID-pneumonia. #. Acute hypoxic respiratory failure secondary to COVID pneumonia #. Pulmonary edema #. Bilateral pleural effusion Decadron 6 mg IVP for 10 days (4 of 10) Acetaminophen 650 mg p.o. every 6 hours as needed for fever IVF at KVO Oxygen 2L NC, plan to titrate to goal >88% proBNP 281 Procalcitonin 0.14 Pulmonology note reviewed, chest ultrasound showing no pleural effusion, continue current management #. Mild euvolemic hyponatremia Sodium 128 on admission Admits to nausea, headache Was given 1 L bolus by ED Random cortisol elevated 28.5 TSH 1.220 Serum osmolarity 274 on 10/22, urine osmolarity 271 on 10/25, urine sodium <20 on 10/25 -UOsm and Cleve more c/w hypovolemic hyponatremia, however, hard to discern when SOsm/UOsm/Cleve not taken same day -1000cc NS bolus, repeat labs in the AM Seizure precautions #. Hypomagnesemia, resolved Mg 1.9 today - daily magnesium #. History of recent fall #. Lightheadedness CT head and neck showing no acute intracranial process, nonspecific white matter changes, no evidence of cervical spine fracture, mild multilevel degenerative disc disease orthostatics negative Echocardiogram LVEF 50-55%, left atrial enlargement Fall precautions Cardiac monitoring PT/OT Holding amitriptyline #. Transaminitis Follow-up with CMP Chronic: #. History of PE: Resume Xarelto 20 mg PO QD #. Multiple sclerosis: Dalfampridine 10 mg PO q12hr #. Nicotine dependence: Nicotine patch daily #. Restless leg syndrome: Gabapentin 300 mg AGUSTINA BID and Ropinirole 4 mg PO BID #. GERD Protonix 40mg PO BID #. Chronic pain: Morphine pain pump #. COPD, not in acute exacerbation, not O2 dependent: Symbicort 160-4.5 mcg, Spiriva 2.5mcg daily, albuterol 2.5mg prn, 2 L nasal cannula F: N/A E: Replete electrolytes as needed N: Regular diet A: PT/OT, ambulates with walker DVT prophylaxis: Xarelto 20mg PO QD Code status: Full code Anticipated discharge place: Pending clinical course Anticipated discharge time: Pending clinical course Jarvis Snyder MD PGY-1 IM Dictation was produced using [employer] dictation software. please excuse any grammatical, word or spelling errors. I saw and evaluated the patient during the fernandez and critical portions of this encounter, and discussed the case in detail with the resident author of this note, I agree with the Assessment and Plan, and my changes, if any, are highlighted in blue. Objective - Vital Signs Vital signs: Vital Signs Temp 97.7 F 10/26/24 07:30 Pulse 88 10/26/24 08:15 Resp 18 10/26/24 08:15 BP 158/92 10/26/24 07:30 Pulse Ox 92 L 10/26/24 10:03 FiO2 Intake & Output 10/25/24 10/26/24 10/26/24 18:59 06:59 18:59 Other: Voiding Method Bedside Commode Bedside Commode Bedside Commode Diaper Diaper # Voids 3 3 - Labs CBC & Chem 7: 10/25/24 07:38 10/25/24 07:38 Labs: Abnormal Lab Results - Last 24 Hours (Table) 10/25/24 10/25/24 Range/Units 15:26 15:26 Urine Osmolality 271 L (400-1100) mOsm/kg Ur Random Sodium <20 L (40-220) mmol/L
--- NOTE | 2024-10-26 13:38 | P.PN ---
Subjective Progress Note Date: 10/26/24 This is a 69-year-old female patient who has a history of pulmonary embolism anticoagulated with Xarelto, multiple sclerosis with chronic dysphagia, chronic pain syndrome with pain stimulator and morphine pump, spinal stenosis, fibromyalgia, seizure disorder, chronic tobacco dependence, chronic obstructive pulmonary disease. She had tested positive for COVID 10 days ago and was treated with Paxlovid. She has very limited mobility due to her MS. She presented here to the emergency room yesterday after sustaining a fall hitting her head on a table with loss of consciousness. CT scan of the brain and spine revealed no evidence of acute intracranial process. No evidence of fracture. Chest x-ray revealed cardiomegaly with pulmonary vascular congestion and bilateral pleural effusions. White count 5.2. Hemoglobin 12.3. Platelets 284. Sodium 130. Potassium 3.6. Bicarb 29. BUN 10. Creatinine 0.55. Glucose 107. COVID screen positive. She is seen today in consultation on the regular medical floor. She is currently sitting up in bed. Awake and alert in no acute distress. She is maintaining O2 saturations in the 90s on 4 L/min per nasal cannula. She did have a temperature of 100.2. Blood pressure stable. The patient is seen today October 24, 2024 in follow-up on the regular medical floor. She is currently sitting up in bed. Awake and alert in no acute distress. Feeling better today compared to yesterday. She is maintaining good O2 saturations in the 90s on 4 L/min per nasal cannula. She is afebrile. Hemodynamically stable. Ultrasound of the chest ordered by medicine revealed 0 cm of pleural effusion bilaterally. White count 3.8. Hemoglobin 10.7. Platelets 296. Sodium 127. Potassium 3.6. Bicarb 30. BUN 9. Creatinine 0.56. Glucose 215. She is continued on Symbicort, albuterol, Spiriva. Continued on Decadron. NicoDerm patch in place. Anticoagulated with Xarelto. The patient is seen today October 25, 2024 in follow-up on the regular medical floor. She is awake and alert in no acute distress. She is maintaining good O2 saturations in the 90s on 4 L/min per nasal cannula. Apparently earlier this morning she was found naked and without her oxygen on with O2 saturations in the 80s. She is oriented currently. She remains on Symbicort, Spiriva, albuterol, Decadron. NicoDerm patch in place. Anticoagulated with Xarelto. White count 6.1. Hemoglobin 11.1. Platelets 394. Sodium 130. Potassium 3.9. Bicarb 30. BUN 10. Creatinine 0.57. Glucose 92. AST 55. ALT 47. The patient is seen today October 26, 2024 in follow-up on the regular medical floor. She is currently sitting up in a chair at the bedside. Awake and alert in no acute distress. She denies any worsening shortness of breath, cough or congestion. She is still having some issues with confusion. When she takes her oxygen off she desaturates quite a bit. She is again educated regarding the importance of consistently wearing her oxygen. She is currently maintaining O2 saturations in the 90s on 4 L/min per nasal cannula. She has been afebrile. Hemodynamically stable. She is maintained on Symbicort, Spiriva, albuterol, Decadron. Anticoagulated with Xarelto. NicoDerm patch in place. Objective - Vital Signs Vital signs: Vital Signs Temp 97.7 F 10/26/24 07:30 Pulse 88 10/26/24 08:15 Resp 18 10/26/24 08:15 BP 158/92 10/26/24 07:30 Pulse Ox 92 L 10/26/24 10:03 FiO2 Intake & Output 10/25/24 10/26/24 10/26/24 18:59 06:59 18:59 Other: Voiding Method Bedside Commode Bedside Commode Bedside Commode Diaper Diaper # Voids 3 3 - Exam GENERAL EXAM: Alert, currently oriented 69-year-old female, sitting up in a chair, on 4 L nasal cannula, in no apparent distress. HEAD: Normocephalic. EYES: Normal reaction of pupils, equal size. NOSE: Clear with pink turbinates. THROAT: No erythema or exudates. NECK: No masses, no JVD. CHEST: No chest wall deformity. LUNGS: Equal air entry with bilateral scattered rhonchi. CVS: S1 and S2 normal with no audible murmur, regular rhythm. ABDOMEN: No hepatosplenomegaly, normal bowel sounds, no guarding or rigidity. SPINE: No scoliosis or deformity SKIN: No rashes CENTRAL NERVOUS SYSTEM: No focal deficits, tone is normal in all 4 extremities. EXTREMITIES: There is trace peripheral edema. No clubbing, no cyanosis. Peripheral pulses are intact. - Labs CBC & Chem 7: 10/25/24 07:38 10/25/24 07:38 Labs: Abnormal Lab Results - Last 24 Hours (Table) 10/25/24 10/25/24 Range/Units 15:26 15:26 Urine Osmolality 271 L (400-1100) mOsm/kg Ur Random Sodium <20 L (40-220) mmol/L Assessment and Plan Assessment: Trip and fall at home while up with walker, CT scan of the brain showed no acute intracranial process COVID infection testing +10 days ago treated with Paxlovid in the outpatient setting Acute hypoxemic respiratory failure secondary to COVID-19 infection, COPD exacerbation Chronic and ongoing tobacco dependence of greater than 50 years Multiple sclerosis with limited mobility and utilizes a walker Chronic obstructive pulmonary disease maintained on Trelegy and albuterol, not oxygen dependent History of pulmonary embolism, anticoagulated with Xarelto Spinal stenosis History of spinal cord stimulator and morphine pump for pain control Plan: The patient was seen and evaluated Medications reviewed Continue the current treatment plan Educated regarding smoking cessation NicoDerm patch in place Educated regarding the importance of keeping her oxygen on May require home oxygen Not sure if patient can reside at home alone May need subacute rehabilitation at discharge I have personally seen and examined the patient, performed the documentation and the assessment and plan as written. Number of minutes spent on the visit: 10 Dictation was produced using [employer] dictation software. Please excuse any grammatical, word or spelling errors.
[2024-10-26] MEDS: SODIUM CHLORIDE 0.9% 1,000 ML IV ONE (14:43)
[2024-10-26] MEDS: LORazepam 2 MG/ML INJ IV STA (23:56)
[2024-10-27 01:16] LABS: Glucose,Whole Blood 116 mg/dL (70-110)
--- NOTE | 2024-10-27 03:51 | XR ---
EXAM: XR Chest, 1 View CLINICAL HISTORY: Hypoxia TECHNIQUE: Frontal view of the chest. COMPARISON: No relevant prior studies available. FINDINGS: Lungs: Moderate amount of airspace opacities throughout both lungs, increased. Pleural space: Unremarkable. Mediastinum: Suspect hiatal hernia. Bones/joints: No acute findings. Soft tissues: Unremarkable IMPRESSION: Bilateral pneumonia, worse
[2024-10-27 05:32] LABS: Appearance,Urine Cloudy (Clear); Bacteria,Urine Many /hpf; Bilirubin,Urine Negative (Negative); Blood,Urine Negative (Negative); Color,Urine Colorless; Glucose,Urine (UA) Negative (Negative); Ketones,Urine Negative (Negative); Leukocyte Esterase,Urine Large (Negative); Mucus,Urine Rare /hpf; Nitrite,Urine Positive (Negative); Protein,Urine Negative (Negative); RBC,Urine 3 /hpf (0-5); Specific Gravity,Urine 1.006 (1.001-1.035); Squamous Epithelial Cell,Urine 8 /hpf (0-4); Urobilinogen,Urine <2.0 mg/dL (<2.0); WBC,Urine 43 /hpf (0-5)
--- NOTE | 2024-10-27 08:03 | US ---
EXAMINATION TYPE: US venous doppler duplex LE DATE OF EXAM: 10/27/2024 1:30 AM Exam done portable COMPARISON: US 2019 CLINICAL INDICATION: Female, 69 years old with history of rule out dvt; , Pain TECHNIQUE: The lower extremity deep venous system is examined utilizing real time linear array sonog gigi with graded compression, color doppler sonography, and spectral doppler. SIDE PERFORMED: Bilateral FINDINGS: VESSELS IMAGED: Common Femoral Vein Deep Femoral Vein Greater Saphenous Vein * Femoral Vein Popliteal Vein Small Saphenous Vein * Proximal Calf Veins (* superficial vessels) The deep venous systems of both lower extremities from the common femoral remains to the proximal pacheco f veins are patent and compressible with augmentable flow and with normal waveforms. IMPRESSION: No evidence of bilateral lower extremity DVT from the common femoral veins to the proximal calf veins [facility], Workstation: JESSIE 10/27/2024 8:00 AM
[2024-10-27 08:29] LABS: VBG PH 7.41 (7.31-7.41)
[2024-10-27 08:52] LABS: Potassium 4.2 mmol/L (3.5-5.1)
[2024-10-27 09:43] LABS: African American GFR (CKD) >90 (>60 ml/min/1.73 sqM); Anion Gap 7 mmol/L; Blood Urea Nitrogen 11 mg/dL (7-17); Calcium 9.4 mg/dL (8.4-10.2); Carbon Dioxide 34 mmol/L (22-30); Chloride 96 mmol/L (98-107); Glucose 80 mg/dL (74-99); Magnesium 1.9 mg/dL (1.6-2.3); Non-African American GFR(CKD) >90 (>60 ml/min/1.73 sqM); Sodium 137 mmol/L (137-145)
[2024-10-27 10:05] LABS: ABG Base Excess 9.6 mmol/L; ABG HCO3 33 mmol/L (21-25); ABG Oxygen Saturation 95.4 % (94-97); ABG PCO2 37 mmHg (35-45); ABG PO2 68 mmHg (83-108); ABG TCO2 34 mmol/L (19-24); Allen Test Performed? Yes
[2024-10-27 10:11] LABS: ABG PH 7.56 (7.35-7.45)
[2024-10-27 11:16] LABS: Glucose,Whole Blood 110 mg/dL (70-110)
[2024-10-27] MEDS: PIPERACILLIN-TAZOBACTAM 3.375 GM in SODIUM CHLORIDE 0.9% 100 ML IVPB SCH (11:45)
--- NOTE | 2024-10-27 12:46 | P.PN ---
Subjective Progress Note Date: 10/27/24 Principal diagnosis: Acute hypoxic respiratory failure secondary to acute COVID-19 pneumonia and acute COPD exacerbation and underlying history of MS. This is a 69-year-old female patient who has a history of pulmonary embolism anticoagulated with Xarelto, multiple sclerosis with chronic dysphagia, chronic pain syndrome with pain stimulator and morphine pump, spinal stenosis, fibromyalgia, seizure disorder, chronic tobacco dependence, chronic obstructive pulmonary disease. She had tested positive for COVID 10 days ago and was treated with Paxlovid. She has very limited mobility due to her MS. She presented here to the emergency room yesterday after sustaining a fall hitting her head on a table with loss of consciousness. CT scan of the brain and spine revealed no evidence of acute intracranial process. No evidence of fracture. Chest x-ray revealed cardiomegaly with pulmonary vascular congestion and bilateral pleural effusions. White count 5.2. Hemoglobin 12.3. Platelets 284. Sodium 130. Potassium 3.6. Bicarb 29. BUN 10. Creatinine 0.55. Glucose 107 . COVID screen positive. She is seen today in consultation on the regular medical floor. She is currently sitting up in bed. Awake and alert in no acute distress. She is maintaining O2 saturations in the 90s on 4 L/min per nasal cannula. She did have a temperature of 100.2. Blood pressure stable. The patient is seen today October 24, 2024 in follow-up on the regular medical floor. She is currently sitting up in bed. Awake and alert in no acute distress. Feeling better today compared to yesterday. She is maintaining good O2 saturations in the 90s on 4 L/min per nasal cannula. She is afebrile. Hemodynamically stable. Ultrasound of the chest ordered by medicine revealed 0 cm of pleural effusion bilaterally. White count 3.8. Hemoglobin 10.7. Platelets 296. Sodium 127. Potassium 3.6. Bicarb 30. BUN 9. Creatinine 0.56. Glucose 215. She is continued on Symbicort, albuterol, Spiriva. Continued on Decadron. NicoDerm patch in place. Anticoagulated with Xarelto. The patient is seen today October 25, 2024 in follow-up on the regular medical floor. She is awake and alert in no acute distress. She is maintaining good O2 saturations in the 90s on 4 L/min per nasal cannula. Apparently earlier this morning she was found naked and without her oxygen on with O2 saturations in the 80s. She is oriented currently. She remains on Symbicort, Spiriva, albuterol, Decadron. NicoDerm patch in place. Anticoagulated with Xarelto. White count 6.1. Hemoglobin 11.1. Platelets 394. Sodium 130. Potassium 3.9. Bicarb 30. BUN 10. Creatinine 0.57. Glucose 92. AST 55. ALT 47. The patient is seen today October 26, 2024 in follow-up on the regular medical floor. She is currently sitting up in a chair at the bedside. Awake and alert in no acute distress. She denies any worsening shortness of breath, cough or congestion. She is still having some issues with confusion. When she takes her oxygen off she desaturates quite a bit. She is again educated regarding the importance of consistently wearing her oxygen. She is currently maintaining O2 saturations in the 90s on 4 L/min per nasal cannula. She has been afebrile. Hemodynamically stable. She is maintained on Symbicort, Spiriva, albuterol, Decadron. Anticoagulated with Xarelto. NicoDerm patch in place. Patient was seen today on 10/27/2024, patient was evaluated on the fourth floor today, and she was noted to be in moderate respiratory distress, on a nonrebreather mask, and her ABG showed a pO2 of 68 pCO2 of 57 pH of 7.56, patient had a worsening chest x-ray showing worsening bilateral pneumo neftali/infiltrates, she had a elevated D-dimer, and ideally speaking would be to check for pulmonary embolism, however the patient is not in the shape to lay flat for CT angiogram of the chest not to mention the patient is already on Xarelto, and her venous Doppler is negative, there is no reason to send this lady down for CT angiogram of the chest. Will continue Xarelto, and will transfer the patient to the ICU for close monitoring. Shortly after she had arrived to the ICU, family changed her CODE STATUS to DNR CODE STATUS although was that her ex- was at the bedside, and made aware that the patient may require life support, he did not voice any concern about CODE STATUS. Again her chest x-ray is worse, her electrolytes are normal bicarb is 34 patient does have history of underlying COPD and probably some component of chronic hypercapnia. Procalcitonin level today was 0.1, hence I believe the findings on the chest x- ray are most likely findings related to COVID-19 pneumonia. Patient received Paxlovid initially for her initial infection. She is now empirically on Zosyn for potential aspiration as she was confused over the last couple of days and she may have aspirated. Objective - Vital Signs Vital signs: Vital Signs Temp 98.3 F 10/27/24 11:30 Pulse 88 10/27/24 12:00 Resp 11 L 10/27/24 12:00 BP 164/76 10/27/24 12:00 Pulse Ox 98 10/27/24 12:00 FiO2 75 10/27/24 11:30 Intake & Output 10/26/24 10/27/24 10/27/24 18:59 06:59 18:59 Intake Total 120 340 Output Total 150 360 Balance -30 -20 Intake: IV 100 Piperacillin-Tazobactam 3 100 .375 gm In Sodium Chloride 0.9% 100 ml @ 25 mls/hr IVPB Q8H JETT Rx#: [id number] kvo 0 Oral 120 240 Output: Urine 150 360 Other: Voiding Method Bedside Commode Bedside Commode Diaper Diaper Diaper # Voids 7 3 # Bowel Movements 0 - Exam GENERAL EXAM: Revealed 69-year-old female confused on nonrebreather mask, ex- is at bedside. HEAD: Normocephalic. EYES: Normal reaction of pupils, equal size. NOSE: Clear with pink turbinates. THROAT: No erythema or exudates. NECK: No masses, no JVD. Lungs/CHEST: Crackles at the bases no rhonchi no wheezes, symmetrical chest expansion CVS: S1 and S2 normal with no audible murmur, regular rhythm. ABDOMEN: No hepatosplenomegaly, normal bowel sounds, no guarding or rigidity. SKIN: No rashes CENTRAL NERVOUS SYSTEM: Patient is confused, restless, agitated, sitting in bed, being calm down by , on a nonrebreather mask. EXTREMITIES: There is trace peripheral edema. No clubbing, no cyanosis. Peripheral pulses are intact. - Labs CBC & Chem 7: 10/25/24 07:38 10/27/24 08:21 Labs: Abnormal Lab Results - Last 24 Hours (Table) 10/27/24 10/27/24 10/27/24 Range/Units 01:00 01:05 01:42 D-Dimer 0.87 H (<0.60) mg/L FEU ABG pH (7.35-7.45) ABG pO2 (83-108) mmHg ABG HCO3 (21-25) mmol/L ABG Total CO2 (19-24) mmol/L VBG pCO2 (37-51) mmHg VBG HCO3 (24-28) mmol/L Chloride (98-107) mmol/L Carbon Dioxide (22-30) mmol/L POC Glucose (mg/dL) 116 H (70-110) mg/dL Urine Appearance Cloudy H (Clear) Urine Nitrite Positive H (Negative) Ur Leukocyte Esterase Large H (Negative) Urine WBC 43 H (0-5) /hpf Ur Squamous Epith Cells 8 H (0-4) /hpf Urine Bacteria Many H (None) /hpf Urine Mucus Rare H (None) /hpf 10/27/24 10/27/24 10/27/24 Range/Units 08:21 08:21 09:48 D-Dimer (<0.60) mg/L FEU ABG pH 7.56 H* (7.35-7.45) ABG pO2 68 L (83-108) mmHg ABG HCO3 33 H (21-25) mmol/L ABG Total CO2 34 H (19-24) mmol/L VBG pCO2 55 H (37-51) mmHg VBG HCO3 35 H (24-28) mmol/L Chloride 96 L (98-107) mmol/L Carbon Dioxide 34 H (22-30) mmol/L POC Glucose (mg/dL) (70-110) mg/dL Urine Appearance (Clear) Urine Nitrite (Negative) Ur Leukocyte Esterase (Negative) Urine WBC (0-5) /hpf Ur Squamous Epith Cells (0-4) /hpf Urine Bacteria (None) /hpf Urine Mucus (None) /hpf Assessment and Plan Assessment: Impression: Acute hypoxic respiratory failure secondary to acute COVID-19 pneumonia and acute exacerbation of COPD, patient had her infection and positive testing about 2 weeks ago, and she received Paxlovid in the outpatient setting. Severe COPD with chronic and ongoing tobacco dependence more than 50 years History of multiple sclerosis Possible aspiration pneumonia History of pulmonary embolism, anticoagulated with Xarelto and has been compliant with treatment. History of spinal stenosis History of chronic pain syndrome patient had spinal cord stimulator and morphine pump. History of trip and fall at home while using the walker on her initial presentation and her CT of the brain showed no acute intracranial process. Recommendation: After evaluating the patient on the medical floor, I recommended transfer to ICU Upon arrival to the ICU, patient was placed on Airvo Reviewed the results of her venous Doppler negative No need for CT angiogram of the chest, patient #1 is anticoagulated with Xarelto No. 2 she has enough findings to explain her hypoxia on chest x-ray. Continue present supportive care measures and bronchodilators Empiric antibiotics although her procalcitonin level is low, but I am concerned about the possibility of recent aspiration pneumonia. Patient is critically ill, Will transfer to ICU, no plans for discharge. At least for now Critical care time is 30 minutes Time with Patient: Greater than 30
--- NOTE | 2024-10-27 14:45 | P.PN ---
Subjective Progress Note Date: 10/27/24 Hospital Course: Patient is a 69-year-old female with multiple sclerosis, chronic narcotic dependence on morphine pain pump, history of pulmonary embolism on Xarelto, seizure disorder, COPD, sleep apnea on CPAP/BiPAP presenting with fall and dizziness. Patient states several days ago she lost balance tripped and fell forward and hit the front of her head. She states she did not lose any consciousness. She does not remember the last time she is fell down. Normally ambulates with a walker or uses a wheelchair. Last night patient states she felt dizzy after getting up from a seated position. She states has been happening more lately. States that she felt better after sitting down. Admits to feeling nauseous and having a headache. Patient denies any syncope, fever, chills, chest pain, history of seizures, shortness of breath, abdominal pain, urinary symptoms. EKG independently interpreted showing sinus rhythm, flattened T waves, rate 95 bpm, QTc 408 CT head and neck showing no acute intracranial process, nonspecific white matter changes, no evidence of cervical spine fracture, mild multilevel degenerative disc disease WBC 4.6, Hgb 11.4, platelet 265, sodium 128, potassium 3.5, chloride 88, glucose 109, AST 104, ALT 59, total protein 5.4, albumin 3.3 T98.6 F, AK 86, 13, BP 118/62, O2 90% on 2 L nasal Cannula Subjective: Patient seen and examined at bedside. Patient continued to pull at oxygen was placed on partial rebreather last night at 15L, currently saturating at 98%. Physical Exam: Gen: In NAD, non-toxic HEENT: normocephalic, atraumatic, hearing acuity is intant, mucous membranes moist CVS: perfusing all extremities well, no pitting edema, Respiratory: symmetric chest expansion, no accessory muscle use, GI: soft, NTTP, ND, : no suprapubic tenderness, no CVA tenderness MSK/Derm: no rashes, cyanosis Neuro: CN II-XII intact, no motor weakness, Psych: cooperative, euthymic mood, judgment and insight is intact Assessment and Plan: Patient is a 69-year-old female with multiple sclerosis, chronic narcotic dependence on morphine pain pump, COPD, history of pulmonary embolism on Xarelto, seizure disorder, sleep apnea on CPAP/BiPAP presenting with fall along with acute hypoxic respiratory failure secondary to COVID-pneumonia. #. Acute hypoxic respiratory failure secondary to COVID pneumonia #. Pulmonary edema #. Bilateral pleural effusion #. Suspected aspiration pneumonia Decadron 6 mg IVP for 10 days (5 of 10) Acetaminophen 650 mg p.o. every 6 hours as needed for fever IVF at KVO Oxygen 2L NC, plan to titrate to goal >88% proBNP 281 Procalcitonin 0.14 Patient placed on Zosyn 3.375 g IVPB every 8 hours by pulmonology Repeat CXR independently interpreted showing bilateral pneumonia, worse from prior Last night patient pulling nasal cannula off, placed on partial rebreather on 15 L Pulmonology note reviewed, patient has been transferred to ICU, placed on Airvo #. Urinary Tract Infection Rocephin 2 g IVPB every 24 hours Urine culture pending #. Mild euvolemic hyponatremia Sodium 128 on admission Admits to nausea, headache Was given 1 L bolus by ED Random cortisol elevated 28.5 TSH 1.220 Seizure precautions #. Hypomagnesemia, resolved Mg 1.9 today - daily magnesium #. History of recent fall #. Lightheadedness CT head and neck showing no acute intracranial process, nonspecific white matter changes, no evidence of cervical spine fracture, mild multilevel degenerative disc disease orthostatics negative Echocardiogram LVEF 50-55%, left atrial enlargement Fall precautions Cardiac monitoring PT/OT Holding amitriptyline #. Transaminitis Follow-up with CMP Chronic: #. History of PE: Resume Xarelto 20 mg PO QD #. Multiple sclerosis: Dalfampridine 10 mg PO q12hr #. Nicotine dependence: Nicotine patch daily #. Restless leg syndrome: Gabapentin 300 mg AGUSTINA BID and Ropinirole 4 mg PO BID #. GERD Protonix 40mg PO BID #. Chronic pain: Morphine pain pump #. COPD, not in acute exacerbation, not O2 dependent: Symbicort 160-4.5 mcg, Spiriva 2.5mcg daily, albuterol 2.5mg prn, 2 L nasal cannula F: N/A E: Replete electrolytes as needed N: Regular diet A: PT/OT, ambulates with walker DVT prophylaxis: Xarelto 20mg PO QD Code status: Full code Anticipated discharge place: Pending clinical course Anticipated discharge time: Pending clinical course Patient is critically ill. Prognosis is guarded. Jarvis Snyder MD PGY-1 IM Dictation was produced using [employer] dictation software. please excuse any grammatical, word or spelling errors. I saw and evaluated the patient during the fernandez and critical portions of this encounter, and discussed the case in detail with the resident author of this note, I agree with the Assessment and Plan, and my changes, if any, are highlighted in blue. Objective - Vital Signs Vital signs: Vital Signs Temp 97.9 F 10/26/24 23:00 Pulse 101 H 10/27/24 00:05 Resp 22 10/26/24 23:05 BP 159/82 10/26/24 23:05 Pulse Ox 98 10/27/24 00:05 FiO2 Intake & Output 10/26/24 10/27/24 10/27/24 18:59 06:59 18:59 Intake Total 120 Output Total 150 Balance -30 Intake: Oral 120 Output: Urine 150 Other: Voiding Method Bedside Commode Bedside Commode Diaper Diaper # Voids 7 3 # Bowel Movements 0 - Labs CBC & Chem 7: 10/25/24 07:38 10/27/24 08:21 Labs: Abnormal Lab Results - Last 24 Hours (Table) 10/27/24 10/27/24 10/27/24 Range/Units 01:00 01:05 01:42 D-Dimer 0.87 H (<0.60) mg/L FEU POC Glucose (mg/dL) 116 H (70-110) mg/dL Urine Appearance Cloudy H (Clear) Urine Nitrite Positive H (Negative) Ur Leukocyte Esterase Large H (Negative) Urine WBC 43 H (0-5) /hpf Ur Squamous Epith Cells 8 H (0-4) /hpf Urine Bacteria Many H (None) /hpf Urine Mucus Rare H (None) /hpf
[2024-10-28 05:11] LABS: Anisocytosis Moderate; Basophils % (A) 0 %; Eosinophils % (A) 0 %; HCT 38.5 % (34.0-46.0); HGB 11.6 gm/dL (11.4-16.0); Hypochromasia Marked; Lymphocytes # (A) 0.9 k/uL (1.0-4.8); Lymphocytes % (A) 20 %; MCH 23.5 pg (25.0-35.0); MCHC 30.2 g/dL (31.0-37.0); MCV 77.8 fL (80.0-100.0); Mean Platelet Volume 7.6; Microcytosis Marked; Monocytes # (A) 0.2 k/uL (0-1.0); Monocytes % (A) 4 %; Neutrophils # (A) 3.3 k/uL (1.3-7.7); Neutrophils % (A) 75 %; Platelet Count 447 k/uL (150-450); RBC 4.95 m/uL (3.80-5.40); RDW 23.2 % (11.5-15.5); WBC 4.4 k/uL (3.8-10.6)
[2024-10-28 05:37] LABS: African American GFR (CKD) >90 (>60 ml/min/1.73 sqM); Blood Urea Nitrogen 12 mg/dL (7-17); Carbon Dioxide 38 mmol/L (22-30); Glucose 119 mg/dL (74-99); Magnesium 1.9 mg/dL (1.6-2.3); Non-African American GFR(CKD) >90 (>60 ml/min/1.73 sqM); Sodium 134 mmol/L (137-145)
[2024-10-28 06:20] LABS: Anion Gap 4 mmol/L; Chloride 92 mmol/L (98-107); Potassium 3.7 mmol/L (3.5-5.1)
[2024-10-28] MEDS ORDERED: Potassium Replacement Protocol 1 EACH MISC MISCELLANE PRN (06:27)
[2024-10-28] MEDS ORDERED: Magnesium Replacement Protocol 1 EACH MISC MISCELLANE PRN (06:27)
--- NOTE | 2024-10-28 06:46 | XR ---
EXAMINATION TYPE: XR chest 1V portable DATE OF EXAM: 10/28/2024 CLINICAL HISTORY: Difficulty breathing progress study. Pneumonia on AirVo TECHNIQUE: Single AP portable semiupright view of the chest is obtained. COMPARISON: Chest x-ray from one day earlier and older studies. FINDINGS: Persistent bilateral multifocal increased opacities. Cardiac silhouette size is stable and within normal limits. Osseous structures are intact. IMPRESSION: Persistent bilateral multifocal opacities consistent with acute infiltrates. No significa nt change from one day earlier. [facility], , 10/28/2024 6:43 AM
[2024-10-28] MEDS: POTASSIUM CHLORIDE ER 20 MEQ TAB.ER PO SCH (06:54)
[2024-10-28] MEDS: MAGNESIUM SULFATE-D5W PMX 1 GM in DEXTROSE/WATER 1 100ML.BAG IVPB ONE (08:23)
--- NOTE | 2024-10-28 11:14 | P.PN ---
Subjective Progress Note Date: 10/28/24 Hospital Course: Patient is a 69-year-old female with multiple sclerosis, chronic narcotic dependence on morphine pain pump, history of pulmonary embolism on Xarelto, seizure disorder, COPD, sleep apnea on CPAP/BiPAP presenting with fall and dizziness. Patient states several days ago she lost balance tripped and fell forward and hit the front of her head. She states she did not lose any consciousness. She does not remember the last time she is fell down. Normally ambulates with a walker or uses a wheelchair. Last night patient states she felt dizzy after getting up from a seated position. She states has been happening more lately. States that she felt better after sitting down. Admits to feeling nauseous and having a headache. Patient denies any syncope, fever, chills, chest pain, history of seizures, shortness of breath, abdominal pain, urinary symptoms. EKG independently interpreted showing sinus rhythm, flattened T waves, rate 95 bpm, QTc 408 CT head and neck showing no acute intracranial process, nonspecific white matter changes, no evidence of cervical spine fracture, mild multilevel degenerative disc disease WBC 4.6, Hgb 11.4, platelet 265, sodium 128, potassium 3.5, chloride 88, glucose 109, AST 104, ALT 59, total protein 5.4, albumin 3.3 T98.6 F, MA 86, 13, BP 118/62, O2 90% on 2 L nasal Cannula Subjective: Patient seen and examined at bedside. Patient is now stable on HFNC. CXR appears unchanged, personally interpreted. Physical Exam: Gen: In NAD, non-toxic HEENT: normocephalic, atraumatic, hearing acuity is intant, mucous membranes moist CVS: perfusing all extremities well, no pitting edema, Respiratory: symmetric chest expansion, no accessory muscle use, GI: soft, NTTP, ND, : no suprapubic tenderness, no CVA tenderness MSK/Derm: no rashes, cyanosis Neuro: CN II-XII intact, no motor weakness, Psych: cooperative, euthymic mood, judgment and insight is intact Assessment and Plan: Patient is a 69-year-old female with multiple sclerosis, chronic narcotic dependence on morphine pain pump, COPD, history of pulmonary embolism on Xarelto, seizure disorder, sleep apnea on CPAP/BiPAP presenting with fall along with acute hypoxic respiratory failure secondary to COVID-pneumonia. #. Acute hypoxic respiratory failure secondary to COVID pneumonia #. Pulmonary edema #. Bilateral pleural effusion #. Suspected aspiration pneumonia Decadron 6 mg IVP for 10 days (5 of 10) Acetaminophen 650 mg p.o. every 6 hours as needed for fever IVF at KVO Oxygen PRN, plan to titrate to goal >88% Patient placed on Zosyn 3.375 g IVPB every 8 hours by pulmonology - see subjective for my personal interpretation of CXR today Pulmonology following, appreciate recs #. Complicated Urinary Tract Infection Rocephin 2 g IVPB every 24 hours Urine culture growing GNRs #. Mild euvolemic hyponatremia Sodium 128 on admission Admits to nausea, headache Was given 1 L bolus by ED Random cortisol elevated 28.5 TSH 1.220 Seizure precautions #. Hypomagnesemia, resolved Mg 1.9 today - daily magnesium #. History of recent fall #. Lightheadedness CT head and neck showing no acute intracranial process, nonspecific white matter changes, no evidence of cervical spine fracture, mild multilevel degenerative disc disease orthostatics negative Echocardiogram LVEF 50-55%, left atrial enlargement Fall precautions Cardiac monitoring PT/OT Holding amitriptyline #. Transaminitis Follow-up with CMP Chronic: #. History of PE: Resume Xarelto 20 mg PO QD #. Multiple sclerosis: Dalfampridine 10 mg PO q12hr #. Nicotine dependence: Nicotine patch daily #. Restless leg syndrome: Gabapentin 300 mg AGUSTINA BID and Ropinirole 4 mg PO BID #. GERD Protonix 40mg PO BID #. Chronic pain: Morphine pain pump #. COPD, not in acute exacerbation, not O2 dependent: Symbicort 160-4.5 mcg, Spiriva 2.5mcg daily, albuterol 2.5mg prn, 2 L nasal cannula F: N/A E: Replete electrolytes as needed N: Regular diet A: PT/OT, ambulates with walker DVT prophylaxis: Xarelto 20mg PO QD Code status: Full code Anticipated discharge place: Pending clinical course Anticipated discharge time: Pending clinical course Patient is critically ill. Prognosis is guarded. Dictation was produced using i3 membrane dictation software. please excuse any grammatical, word or spelling errors. Objective - Vital Signs Vital signs: Vital Signs Temp 97.6 F 10/28/24 08:00 Pulse 67 10/28/24 09:00 Resp 22 10/28/24 09:00 BP 126/64 10/28/24 09:00 Pulse Ox 93 L 10/28/24 09:00 FiO2 80 10/28/24 08:51 Intake & Output 10/27/24 10/28/24 10/28/24 18:59 06:59 18:59 Intake Total 980 215 145 Output Total 1010 715 85 Balance -30 -500 60 Weight 85.4 kg Intake: IV 130 215 45 Piperacillin-Tazobactam 3 100 175 25 .375 gm In Sodium Chloride 0.9% 100 ml @ 25 mls/hr IVPB Q8H [facility] Rx#: [id number] kvo 30 40 20 Intake, IV Titration 100 Amount Magnesium Sulfate-D5w Pmx 100 1 gm In Dextrose/Water 1 100ml.bag @ 100 mls/hr IVPB ONCE ONE Rx#: [id number] Oral 850 Output: Urine 1010 715 85 Other: Voiding Method Indwelling Catheter Indwelling Catheter Indwelling Catheter - Labs CBC & Chem 7: 10/28/24 04:39 10/28/24 04:39 Labs: Abnormal Lab Results - Last 24 Hours (Table) 10/28/24 10/28/24 Range/Units 04:39 04:39 MCV 77.8 L (80.0-100.0) fL MCH 23.5 L (25.0-35.0) pg MCHC 30.2 L (31.0-37.0) g/dL RDW 23.2 H (11.5-15.5) % Lymphocytes # 0.9 L (1.0-4.8) k/uL Sodium 134 L (137-145) mmol/L Chloride 92 L (98-107) mmol/L Carbon Dioxide 38 H (22-30) mmol/L Glucose 119 H (74-99) mg/dL Microbiology - Last 24 Hours (Table) 10/27/24 01:00 Urine Culture - Preliminary Urine,Voided Gram Neg Bacilli
--- NOTE | 2024-10-28 12:17 | P.PN ---
Subjective Progress Note Date: 10/28/24 Principal diagnosis: Pneumonia, hyponatremia. This is a 69-year-old female patient who has a history of pulmonary embolism anticoagulated with Xarelto, multiple sclerosis with chronic dysphagia, chronic pain syndrome with pain stimulator and morphine pump, spinal stenosis, fibro myalgia, seizure disorder, chronic tobacco dependence, chronic obstructive pulmonary disease. She had tested positive for COVID 10 days ago and was treated with Paxlovid. She has very limited mobility due to her MS. She presented here to the emergency room yesterday after sustaining a fall hitting her head on a table with loss of consciousness. CT scan of the brain and spine revealed no evidence of acute intracranial process. No evidence of fracture. Chest x-ray revealed cardiomegaly with pulmonary vascular congestion and bilateral pleural effusions. White count 5.2. Hemoglobin 12.3. Platelets 284. Sodium 130. Potassium 3.6. Bicarb 29. BUN 10. Creatinine 0.55. Glucose 107. COVID screen positive. She is seen today in consultation on the regular medical floor. She is currently sitting up in bed. Awake and alert in no acute distress. She is maintaining O2 saturations in the 90s on 4 L/min per nasal cannula. She did have a temperature of 100.2. Blood pressure stable. The patient is seen today October 24, 2024 in follow-up on the regular medical floor. She is currently sitting up in bed. Awake and alert in no acute distress. Feeling better today compared to yesterday. She is maintaining good O2 saturations in the 90s on 4 L/min per nasal cannula. She is afebrile. Hemodynamically stable. Ultrasound of the chest ordered by medicine revealed 0 cm of pleural effusion bilaterally. White count 3.8. Hemoglobin 10.7. Platelets 296. Sodium 127. Potassium 3.6. Bicarb 30. BUN 9. Creatinine 0.56. Glucose 215. She is continued on Symbicort, albuterol, Spiriva. Continued on Decadron. NicoDerm patch in place. Anticoagulated with Xarelto. The patient is seen today October 25, 2024 in follow-up on the regular medical floor. She is awake and alert in no acute distress. She is maintaining good O2 saturations in the 90s on 4 L/min per nasal cannula. Apparently earlier this morning she was found naked and without her oxygen on with O2 saturations in the 80s. She is oriented currently. She remains on Symbicort, Spiriva, albuterol, Decadron. NicoDerm patch in place. Anticoagulated with Xarelto. White count 6.1. Hemoglobin 11.1. Platelets 394. Sodium 130. Potassium 3.9. Bicarb 30. BUN 10. Creatinine 0.57. Glucose 92. AST 55. ALT 47. The patient is seen today October 26, 2024 in follow-up on the regular medical floor. She is currently sitting up in a chair at the bedside. Awake and alert in no acute distress. She denies any worsening shortness of breath, cough or congestion. She is still having some issues with confusion. When she takes her oxygen off she desaturates quite a bit. She is again educated regarding the importance of consistently wearing her oxygen. She is currently maintaining O2 saturations in the 90s on 4 L/min per nasal cannula. She has been afebrile. Hemodynamically stable. She is maintained on Symbicort, Spiriva, albuterol, Decadron. Anticoagulated with Xarelto. NicoDerm patch in place. Patient was seen today on 10/27/2024, patient was evaluated on the fourth floor today, and she was noted to be in moderate respiratory distress, on a nonrebreather mask, and her ABG showed a pO2 of 68 pCO2 of 57 pH of 7.56, patient had a worsening chest x-ray showing worsening bilateral pneumonia/in filtrates, she had a elevated D-dimer, and ideally speaking would be to check for pulmonary embolism, however the patient is not in the shape to lay flat for CT angiogram of the chest not to mention the patient is already on Xarelto, and her venous Doppler is negative, there is no reason to send this lady down for CT angiogram of the chest. Will continue Xarelto, and will transfer the patient to the ICU for close monitoring. Shortly after she had arrived to the ICU, family changed her CODE STATUS to DNR CODE STATUS although was that her ex- was at the bedside, and made aware that the patient may require life support, he did not voice any concern about CODE STATUS. Again her chest x-ray is worse, her electrolytes are normal bicarb is 34 patient does have history of underlying COPD and probably some component of chronic hypercapnia. Procalcitonin level today was 0.1, hence I believe the findings on the chest x-ray are most likely findings related to COVID-19 pneumonia. Patient received Paxlovid initially for her initial infection. She is now empirically on Zosyn for potential aspiration as she was confused over the last couple of days and she may have aspirated. Progress note dated October 28, 2024. This is a 69-year-old female who was admitted on October 22, for pneumonia, and hyponatremia. She apparently came to the intensive care unit, for respiratory distress, on October 27. The patient is seen today in room 260. Currently, the patient is on Airvo, with settings of 50 L/min, and an FiO2 of 75%. The patient is getting saline at KVO. The patient continues on Zosyn, for a possible urinary tract infection versus pneumonia. The patient had a blood gas y ester, which showed a pO2 of 68, pCO2 of 37, pH of 7.56. The patient is a DO NOT RESUSCITATE patient. Current labs include a white count 4.4, hemoglobin 11.6, hematocrit 38.5, and a platelet count of 447,000. Sodium 134, potassium 3.7, chloride 92, CO2 38, BUN 12, creatinine 0.52. Glucose is 119. Calcium is 9. Magnesium is 1.9. Procalcitonin level is 0.10. Urine is revealing gram-negative bacilli. Chest x-ray shows persistent bilateral multifocal opacities, consistent with acute infiltrates/pneumonitis. Objective - Vital Signs Vital signs: Vital Signs Temp 97.9 F 10/28/24 12:00 Pulse 69 10/28/24 12:00 Resp 18 10/28/24 12:00 BP 135/74 10/28/24 12:00 Pulse Ox 100 10/28/24 12:00 FiO2 75 10/28/24 12:00 Intake & Output 10/27/24 10/28/24 10/28/24 18:59 06:59 18:59 Intake Total 980 215 275 Output Total 1010 715 170 Balance -30 -500 105 Weight 85.4 kg Intake: IV 130 215 175 Piperacillin-Tazobactam 3 100 175 125 .375 gm In Sodium Chloride 0.9% 100 ml @ 25 mls/hr IVPB Q8H [facility] Rx#: [id number] kvo 30 40 50 Intake, IV Titration 100 Amount Magnesium Sulfate-D5w Pmx 100 1 gm In Dextrose/Water 1 100ml.bag @ 100 mls/hr IVPB ONCE ONE Rx#: [id number] Oral 850 Output: Urine 1010 715 170 Other: Voiding Method Indwelling Catheter Indwelling Catheter Indwelling Catheter - Exam No acute distress, somnolent, currently on Airvo. HEENT examination is grossly unremarkable. Mucous membranes are moist. No oral lesions. Neck supple. Full range of motion. No adenopathy thyromegaly or neck vein distention. Cardiovascular examination reveals regular rhythm rate. S1-S2 normal. No S3 or S4. No discernible murmur noted. Lungs reveal bibasilar crackles. Breath sounds are equal bilaterally. No whe ezes. No rhonchi. Abdomen soft bowel sounds are heard. No masses or tenderness. Extremities are intact. No cyanosis or clubbing. Trace lower extremity edema. Skin is without rash or lesion. Neurologic examination is brief but nonfocal. - Labs CBC & Chem 7: 10/28/24 04:39 10/28/24 04:39 Labs: Abnormal Lab Results - Last 24 Hours (Table) 10/28/24 10/28/24 Range/Units 04:39 04:39 MCV 77.8 L (80.0-100.0) fL MCH 23.5 L (25.0-35.0) pg MCHC 30.2 L (31.0-37.0) g/dL RDW 23.2 H (11.5-15.5) % Lymphocytes # 0.9 L (1.0-4.8) k/uL Sodium 134 L (137-145) mmol/L Chloride 92 L (98-107) mmol/L Carbon Dioxide 38 H (22-30) mmol/L Glucose 119 H (74-99) mg/dL Microbiology - Last 24 Hours (Table) 10/27/24 01:00 Urine Culture - Preliminary Urine,Voided Gram Neg Bacilli Assessment and Plan Assessment: Acute hypoxemic respiratory failure secondary to acute COVID-19 pneumonia and acute exacerbation of COPD. Severe COPD, with chronic and ongoing tobacco dependence, for more than 50 years. History of multiple sclerosis. Possible aspiration pneumonia. History of pulmonary embolism. History of spinal stenosis. History of chronic pain syndrome, status post implantation of a spinal cord stimulator. History of fall at home, with negative brain CT. Plan: Plan dated October 28, 2024. The patient is seen today in room 260. She was admitted on October 22, 2024, for pneumonia, and hyponatremia. The patient came to the intensive care unit, on the . She is currently on Airvo, with settings of 50 L/min, and FiO2 of 75%. Blood gases yesterday showed a pO2 of 68, pCO2 of 37, pH is 7.56. Patient is getting saline at KVO. She continues on Zosyn. Urine does reveal evidence of gram-negative bacilli, even though the procalcitonin level is normal. Labs, x-rays, and all medications are reviewed. The patient's overall prognosis is guarded. 45 minutes was spent with this patient, including interview, examination, review of labs x-rays, etc., as well as discussing the diagnosis, treatments, and prognosis, as well as discussing the plan of care, with the patient, respiratory therapist, nurses, etc. Time with Patient: Greater than 30
[2024-10-28 14:17] VITALS: BMI 31.3
[2024-10-28] MEDS: ONDANSETRON 4 MG/2 ML VIAL IVP PRN (14:30)
[2024-10-29 06:08] LABS: Anisocytosis Moderate; Basophils % (A) 0 %; Eosinophils % (A) 0 %; HCT 40.6 % (34.0-46.0); HGB 12.4 gm/dL (11.4-16.0); Hypochromasia Marked; Lymphocytes # (A) 1.1 k/uL (1.0-4.8); Lymphocytes % (A) 17 %; MCHC 30.7 g/dL (31.0-37.0); MCV 78.4 fL (80.0-100.0); Mean Platelet Volume 7.2; Microcytosis Moderate; Monocytes # (A) 0.2 k/uL (0-1.0); Monocytes % (A) 2 %; Neutrophils # (A) 5.4 k/uL (1.3-7.7); Neutrophils % (A) 80 %; Platelet Count 463 k/uL (150-450); RBC 5.17 m/uL (3.80-5.40); RDW 23.1 % (11.5-15.5); WBC 6.8 k/uL (3.8-10.6)
[2024-10-29 06:30] LABS: African American GFR (CKD) >90 (>60 ml/min/1.73 sqM); Anion Gap 2 mmol/L; Blood Urea Nitrogen 18 mg/dL (7-17); Calcium 9.3 mg/dL (8.4-10.2); Carbon Dioxide 39 mmol/L (22-30); Chloride 92 mmol/L (98-107); Glucose 87 mg/dL (74-99); Magnesium 2.1 mg/dL (1.6-2.3); Non-African American GFR(CKD) >90 (>60 ml/min/1.73 sqM); Potassium 4.3 mmol/L (3.5-5.1); Sodium 133 mmol/L (137-145)
--- NOTE | 2024-10-29 07:06 | XR ---
EXAMINATION TYPE: XR chest 1V portable DATE OF EXAM: 10/29/2024 CLINICAL HISTORY: Difficulty breathing progress study. Bilateral infiltrates. TECHNIQUE: Single AP portable semiupright view of the chest is obtained. COMPARISON: Chest x-ray from one day earlier and older studies. FINDINGS: Persistent bilateral multifocal increased opacities. Cardiac silhouette size is stable and upper limits of normal. Old malunion fracture right proximal humerus redemonstrated. IMPRESSION: Persistent bilateral multifocal opacities consistent with acute infiltrates and/or edema. No significant change from one day earlier. [facility], , 10/29/2024 7:04 AM
[2024-10-29] MEDS: IPRATROPIUM-ALBUTEROL 3 ML NEB INHALATION SCH (12:00)
--- NOTE | 2024-10-29 12:28 | P.PN ---
Subjective Progress Note Date: 10/29/24 Principal diagnosis: Pneumonia, hyponatremia. This is a 69-year-old female patient who has a history of pulmonary embolism anticoagulated with Xarelto, multiple sclerosis with chronic dysphagia, chronic pain syndrome with pain stimulator and morphine pump, spinal stenosis, fibro myalgia, seizure disorder, chronic tobacco dependence, chronic obstructive pulmonary disease. She had tested positive for COVID 10 days ago and was treated with Paxlovid. She has very limited mobility due to her MS. She presented here to the emergency room yesterday after sustaining a fall hitting her head on a table with loss of consciousness. CT scan of the brain and spine revealed no evidence of acute intracranial process. No evidence of fracture. Chest x-ray revealed cardiomegaly with pulmonary vascular congestion and bilateral pleural effusions. White count 5.2. Hemoglobin 12.3. Platelets 284. Sodium 130. Potassium 3.6. Bicarb 29. BUN 10. Creatinine 0.55. Glucose 107. COVID screen positive. She is seen today in consultation on the regular medical floor. She is currently sitting up in bed. Awake and alert in no acute distress. She is maintaining O2 saturations in the 90s on 4 L/min per nasal cannula. She did have a temperature of 100.2. Blood pressure stable. The patient is seen today October 24, 2024 in follow-up on the regular medical floor. She is currently sitting up in bed. Awake and alert in no acute distress. Feeling better today compared to yesterday. She is maintaining good O2 saturations in the 90s on 4 L/min per nasal cannula. She is afebrile. Hemodynamically stable. Ultrasound of the chest ordered by medicine revealed 0 cm of pleural effusion bilaterally. White count 3.8. Hemoglobin 10.7. Platelets 296. Sodium 127. Potassium 3.6. Bicarb 30. BUN 9. Creatinine 0.56. Glucose 215. She is continued on Symbicort, albuterol, Spiriva. Continued on Decadron. NicoDerm patch in place. Anticoagulated with Xarelto. The patient is seen today October 25, 2024 in follow-up on the regular medical floor. She is awake and alert in no acute distress. She is maintaining good O2 saturations in the 90s on 4 L/min per nasal cannula. Apparently earlier this morning she was found naked and without her oxygen on with O2 saturations in the 80s. She is oriented currently. She remains on Symbicort, Spiriva, albuterol, Decadron. NicoDerm patch in place. Anticoagulated with Xarelto. White count 6.1. Hemoglobin 11.1. Platelets 394. Sodium 130. Potassium 3.9. Bicarb 30. BUN 10. Creatinine 0.57. Glucose 92. AST 55. ALT 47. The patient is seen today October 26, 2024 in follow-up on the regular medical floor. She is currently sitting up in a chair at the bedside. Awake and alert in no acute distress. She denies any worsening shortness of breath, cough or congestion. She is still having some issues with confusion. When she takes her oxygen off she desaturates quite a bit. She is again educated regarding the importance of consistently wearing her oxygen. She is currently maintaining O2 saturations in the 90s on 4 L/min per nasal cannula. She has been afebrile. Hemodynamically stable. She is maintained on Symbicort, Spiriva, albuterol, Decadron. Anticoagulated with Xarelto. NicoDerm patch in place. Patient was seen today on 10/27/2024, patient was evaluated on the fourth floor today, and she was noted to be in moderate respiratory distress, on a nonrebreather mask, and her ABG showed a pO2 of 68 pCO2 of 57 pH of 7.56, patient had a worsening chest x-ray showing worsening bilateral pneumonia/in filtrates, she had a elevated D-dimer, and ideally speaking would be to check for pulmonary embolism, however the patient is not in the shape to lay flat for CT angiogram of the chest not to mention the patient is already on Xarelto, and her venous Doppler is negative, there is no reason to send this lady down for CT angiogram of the chest. Will continue Xarelto, and will transfer the patient to the ICU for close monitoring. Shortly after she had arrived to the ICU, family changed her CODE STATUS to DNR CODE STATUS although was that her ex- was at the bedside, and made aware that the patient may require life support, he did not voice any concern about CODE STATUS. Again her chest x-ray is worse, her electrolytes are normal bicarb is 34 patient does have history of underlying COPD and probably some component of chronic hypercapnia. Procalcitonin level today was 0.1, hence I believe the findings on the chest x-ray are most likely findings related to COVID-19 pneumonia. Patient received Paxlovid initially for her initial infection. She is now empirically on Zosyn for potential aspiration as she was confused over the last couple of days and she may have aspirated. Progress note dated October 28, 2024. This is a 69-year-old female who was admitted on October 22, for pneumonia, and hyponatremia. She apparently came to the intensive care unit, for respiratory distress, on October 27. The patient is seen today in room 260. Currently, the patient is on Airvo, with settings of 50 L/min, and an FiO2 of 75%. The patient is getting saline at KVO. The patient continues on Zosyn, for a possible urinary tract infection versus pneumonia. The patient had a blood gas y , which showed a pO2 of 68, pCO2 of 37, pH of 7.56. The patient is a DO NOT RESUSCITATE patient. Current labs include a white count 4.4, hemoglobin 11.6, hematocrit 38.5, and a platelet count of 447,000. Sodium 134, potassium 3.7, chloride 92, CO2 38, BUN 12, creatinine 0.52. Glucose is 119. Calcium is 9. Magnesium is 1.9. Procalcitonin level is 0.10. Urine is revealing gram-negative bacilli. Chest x-ray shows persistent bilateral multifocal opacities, consistent with acute infiltrates/pneumonitis. Progress note dated October 29, 2024. 69-year-old female who was admitted on October 22, for pneumonia, and hyponatremia. She came to the intensive care unit, for respiratory distress, on October 27, 2024. The patient is seen today in room 260. Currently, she is on Airvo, with settings of 50 L/min, and an FiO2 of 65%. She is getting saline at 10 cc an hour. She is sitting in a chair next to the hospital bed. She is awake and alert. In no distress. She states that she does feel better. Current laboratory data includes a white count 6.8, hemoglobin 12.4, hematocrit 40.6, and a platelet count of 463,000. Sodium 133, potassium 4.3, chloride 92, CO2 39, BUN 18, creatinine 0.64. Calcium is 9.3. Magnesium is 2.1. Urine culture from October 27, was positive for Escherichia coli. Chest x-ray continues to show bilateral infiltrates. The patient continues on Zosyn. Objective - Vital Signs Vital signs: Vital Signs Temp 98.9 F 10/29/24 12:00 Pulse 81 10/29/24 12:09 Resp 23 10/29/24 12:09 BP 122/63 10/29/24 12:00 Pulse Ox 96 10/29/24 12:00 FiO2 61 10/29/24 12:00 Intake & Output 10/28/24 10/29/24 10/29/24 18:59 06:59 18:59 Intake Total 885 310 620 Output Total 360 275 135 Balance 525 35 485 Weight 85.4 kg Intake: IV 245 310 130 Piperacillin-Tazobactam 3 125 200 100 .375 gm In Sodium Chloride 0.9% 100 ml @ 25 mls/hr IVPB Q8H [facility] Rx#: [id number] kvo 120 110 30 Intake, IV Titration 100 Amount Magnesium Sulfate-D5w Pmx 100 1 gm In Dextrose/Water 1 100ml.bag @ 100 mls/hr IVPB ONCE ONE Rx#: [id number] Oral 540 Tube Feeding 490 Output: Urine 360 275 135 Other: Voiding Method Indwelling Catheter Indwelling Catheter - Exam No acute distress, somnolent, currently on Airvo. HEENT examination is grossly unremarkable. Mucous membranes are moist. No oral lesions. Neck supple. Full range of motion. No adenopathy thyromegaly or neck vein distention. Cardiovascular examination reveals regular rhythm rate. S1-S2 normal. No S3 or S4. No discernible murmur noted. Lungs reveal bibasilar crackles. Breath sounds are equal bilaterally. No wheezes. No rhonchi. Abdomen soft bowel sounds are heard. No masses or tenderness. Extremities are intact. No cyanosis or clubbing. Trace lower extremity edema. Skin is without rash or lesion. Neurologic examination is brief but nonfocal. - Labs CBC & Chem 7: 10/29/24 05:53 10/29/24 05:53 Labs: Abnormal Lab Results - Last 24 Hours (Table) 10/29/24 10/29/24 Range/Units 05:53 05:53 MCV 78.4 L (80.0-100.0) fL MCH 24.0 L (25.0-35.0) pg MCHC 30.7 L (31.0-37.0) g/dL RDW 23.1 H (11.5-15.5) % Plt Count 463 H (150-450) k/uL Sodium 133 L (137-145) mmol/L Chloride 92 L (98-107) mmol/L Carbon Dioxide 39 H (22-30) mmol/L BUN 18 H (7-17) mg/dL Microbiology - Last 24 Hours (Table) 10/27/24 01:00 Urine Culture - Final Urine,Voided Escherichia coli Assessment and Plan Assessment: Acute hypoxemic respiratory failure secondary to acute COVID-19 pneumonia and acute exacerbation of COPD. Severe COPD, with chronic and ongoing tobacco dependence, for more than 50 years. Gram-negative bacillary urinary tract infection, secondary to Escherichia coli. History of multiple sclerosis. Possible aspiration pneumonia. History of pulmonary embolism. History of spinal stenosis. History of chronic pain syndrome, status post implantation of a spinal cord stimulator. History of fall at home, with negative brain CT. Plan: Plan dated October 28, 2024. The patient is seen today in room 260. She was admitted on October 22, 2024, for pneumonia, and hyponatremia. The patient came to the intensive care unit, on the . She is currently on Airvo, with settings of 50 L/min, and FiO2 of 75%. Blood gases yesterday showed a pO2 of 68, pCO2 of 37, pH is 7.56. Patient is getting saline at KVO. She continues on Zosyn. Urine does reveal evidence of gram-negative bacilli, even though the procalcitonin level is normal. Labs, x-rays, and all medications are reviewed. The patient's overall prognosis is guarded. 45 minutes was spent with this patient, including interview, examination, review of labs x-rays, etc., as well as discussing the diagnosis, treatments, and prognosis, as well as discussing the plan of care, with the patient, respiratory therapist, nurses, etc. Plan dated October 29, 2024. The patient is seen today in room 260. She is sitting in a chair next to the hospital bed. She is currently on Airvo. Her urinary cultures, show evidence of Escherichia coli. She continues on Zosyn. All labs, x-rays, medications are reviewed. We will continue to follow the patient, make recommendations along the way. 50 minutes was spent with this patient, including interviewing the patient, examining her, reviewing labs, x-rays, medications, as well as discussing the diagnosis, treatment, prognosis, with her bedside nurse, pharmacy, respiratory therapy, and dietary. Prognosis is guarded. The patient is a no code. Time with Patient: Greater than 30
--- NOTE | 2024-10-29 12:49 | P.PN ---
Subjective Progress Note Date: 10/29/24 Hospital Course: Patient is a 69-year-old female with multiple sclerosis, chronic narcotic dependence on morphine pain pump, history of pulmonary embolism on Xarelto, seizure disorder, COPD, sleep apnea on CPAP/BiPAP presenting with fall and dizziness. Patient states several days ago she lost balance tripped and fell forward and hit the front of her head. She states she did not lose any consciousness. She does not remember the last time she is fell down. Normally ambulates with a walker or uses a wheelchair. Last night patient states she felt dizzy after getting up from a seated position. She states has been happening more lately. States that she felt better after sitting down. Admits to feeling nauseous and having a headache. Patient denies any syncope, fever, chills, chest pain, history of seizures, shortness of breath, abdominal pain, urinary symptoms. EKG independently interpreted showing sinus rhythm, flattened T waves, rate 95 bpm, QTc 408 CT head and neck showing no acute intracranial process, nonspecific white matter changes, no evidence of cervical spine fracture, mild multilevel degenerative disc disease WBC 4.6, Hgb 11.4, platelet 265, sodium 128, potassium 3.5, chloride 88, glucose 109, AST 104, ALT 59, total protein 5.4, albumin 3.3 T98.6 F, MD 86, 13, BP 118/62, O2 90% on 2 L nasal Cannula Subjective: Patient seen and examined at bedside. Patient is now stable on HFNC. Intermittently confused and pulls off oxygen. CXR appears unchanged today given differences in inspiratory effort between yesterday's and today's study. Physical Exam: Gen: In NAD, non-toxic HEENT: normocephalic, atraumatic, hearing acuity is intant, mucous membranes moist CVS: perfusing all extremities well, no pitting edema, Respiratory: symmetric chest expansion, no accessory muscle use, GI: soft, NTTP, ND, : no suprapubic tenderness, no CVA tenderness MSK/Derm: no rashes, cyanosis Neuro: CN II-XII intact, no motor weakness, Psych: cooperative, euthymic mood, judgment and insight is intact Assessment and Plan: Patient is a 69-year-old female with multiple sclerosis, chronic narcotic dependence on morphine pain pump, COPD, history of pulmonary embolism on Xarelt o, seizure disorder, sleep apnea on CPAP/BiPAP presenting with fall along with acute hypoxic respiratory failure secondary to COVID-pneumonia. #. Acute hypoxic respiratory failure secondary to COVID pneumonia #. Pulmonary edema #. Bilateral pleural effusion #. Suspected aspiration pneumonia Decadron 6 mg IVP for 10 days (6 of 10) Acetaminophen 650 mg p.o. every 6 hours as needed for fever IVF at KVO Oxygen PRN, plan to titrate to goal >88% Patient placed on Zosyn 3.375 g IVPB every 8 hours by pulmonology - see subjective for my personal interpretation of CXR today Pulmonology following, appreciate recs #. Complicated Urinary Tract Infection Rocephin 2 g IVPB every 24 hours Urine culture growing GNRs #. Mild euvolemic hyponatremia Sodium 128 on admission Admits to nausea, headache Was given 1 L bolus by ED Random cortisol elevated 28.5 TSH 1.220 Seizure precautions #. Hypomagnesemia, resolved Mg 1.9 today - daily magnesium #. History of recent fall #. Lightheadedness CT head and neck showing no acute intracranial process, nonspecific white matter changes, no evidence of cervical spine fracture, mild multilevel dege nerative disc disease orthostatics negative Echocardiogram LVEF 50-55%, left atrial enlargement Fall precautions Cardiac monitoring PT/OT Holding amitriptyline #. Transaminitis Follow-up with CMP Chronic: #. History of PE: Resume Xarelto 20 mg PO QD #. Multiple sclerosis: Dalfampridine 10 mg PO q12hr #. Nicotine dependence: Nicotine patch daily #. Restless leg syndrome: Gabapentin 300 mg AGUSTINA BID and Ropinirole 4 mg PO BID #. GERD Protonix 40mg PO BID #. Chronic pain: Morphine pain pump #. COPD, not in acute exacerbation, not O2 dependent: Symbicort 160-4.5 mcg, Spiriva 2.5mcg daily, albuterol 2.5mg prn, 2 L nasal cannula F: N/A E: Replete electrolytes as needed N: Regular diet A: PT/OT, ambulates with walker DVT prophylaxis: Xarelto 20mg PO QD Code status: Full code Anticipated discharge place: Pending clinical course Anticipated discharge time: Pending clinical course Patient is critically ill. Prognosis is guarded. Dictation was produced using [employer] software. please excuse any grammatical, word or spelling errors. Objective - Vital Signs Vital signs: Vital Signs Temp 98.9 F 10/29/24 12:00 Pulse 81 10/29/24 12:09 Resp 23 10/29/24 12:09 BP 122/63 10/29/24 12:00 Pulse Ox 96 10/29/24 12:00 FiO2 61 10/29/24 12:00 Intake & Output 10/28/24 10/29/24 10/29/24 18:59 06:59 18:59 Intake Total 885 310 620 Output Total 360 275 135 Balance 525 35 485 Weight 85.4 kg Intake: IV 245 310 130 Piperacillin-Tazobactam 3 125 200 100 .375 gm In Sodium Chloride 0.9% 100 ml @ 25 mls/hr IVPB Q8H [facility] Rx#: [id number] kvo 120 110 30 Intake, IV Titration 100 Amount Magnesium Sulfate-D5w Pmx 100 1 gm In Dextrose/Water 1 100ml.bag @ 100 mls/hr IVPB ONCE ONE Rx#: [id number] Oral 540 Tube Feeding 490 Output: Urine 360 275 135 Other: Voiding Method Indwelling Catheter Indwelling Catheter - Labs CBC & Chem 7: 10/29/24 05:53 10/29/24 05:53 Labs: Abnormal Lab Results - Last 24 Hours (Table) 10/29/24 10/29/24 Range/Units 05:53 05:53 MCV 78.4 L (80.0-100.0) fL MCH 24.0 L (25.0-35.0) pg MCHC 30.7 L (31.0-37.0) g/dL RDW 23.1 H (11.5-15.5) % Plt Count 463 H (150-450) k/uL Sodium 133 L (137-145) mmol/L Chloride 92 L (98-107) mmol/L Carbon Dioxide 39 H (22-30) mmol/L BUN 18 H (7-17) mg/dL Microbiology - Last 24 Hours (Table) 10/27/24 01:00 Urine Culture - Final Urine,Voided Escherichia coli
[2024-10-29] MEDS: QUEtiapine 25 MG TAB PO STA (14:30)
--- NOTE | 2024-10-30 06:12 | XR ---
EXAMINATION TYPE: XR chest 1V portable DATE OF EXAM: 10/30/2024 CLINICAL HISTORY: Difficulty breathing progress study. Bilateral infiltrates. TECHNIQUE: Single AP portable semiupright view of the chest is obtained. COMPARISON: Chest x-ray from one day earlier and older studies. FINDINGS: Persistent bilateral multifocal increased opacities. Cardiac silhouette size is stable and mildly enlarged. Old fracture right proximal humerus redemonstrated. IMPRESSION: Persistent bilateral multifocal opacities consistent with acute infiltrates and/or edema. No significant change from one day earlier. [facility], , 10/30/2024 6:09 AM
[2024-10-30 07:40] LABS: Anisocytosis Moderate; Basophils % (A) 0 %; Eosinophils % (A) 0 %; HCT 41.4 % (34.0-46.0); HGB 12.9 gm/dL (11.4-16.0); Hypochromasia Moderate; Lymphocytes # (A) 0.9 k/uL (1.0-4.8); Lymphocytes % (A) 12 %; MCH 23.9 pg (25.0-35.0); MCHC 31.1 g/dL (31.0-37.0); MCV 76.8 fL (80.0-100.0); Mean Platelet Volume 8.1; Microcytosis Marked; Monocytes # (A) 0.1 k/uL (0-1.0); Monocytes % (A) 2 %; Neutrophils # (A) 6.2 k/uL (1.3-7.7); Neutrophils % (A) 85 %; Platelet Count 414 k/uL (150-450); RBC 5.39 m/uL (3.80-5.40); RDW 22.9 % (11.5-15.5); WBC 7.3 k/uL (3.8-10.6)
[2024-10-30 07:43] LABS: African American GFR (CKD) >90 (>60 ml/min/1.73 sqM); Anion Gap 5 mmol/L; Blood Urea Nitrogen 16 mg/dL (7-17); Calcium 9.1 mg/dL (8.4-10.2); Carbon Dioxide 37 mmol/L (22-30); Chloride 96 mmol/L (98-107); Glucose 110 mg/dL (74-99); Non-African American GFR(CKD) >90 (>60 ml/min/1.73 sqM); Potassium 4.3 mmol/L (3.5-5.1); Sodium 138 mmol/L (137-145)
[2024-10-30] MEDS: LORazepam 2 MG/ML INJ IV PRN (10:06)
[2024-10-30 10:12] VITALS: TEMP 98.2
[2024-10-30] MEDS: QUEtiapine 25 MG TAB PO SCH (10:33)
[2024-10-30] MEDS: MORPHINE SULFATE 4 MG/ML SYRINGE IVP PRN (12:14)
--- NOTE | 2024-10-30 12:33 | P.PN ---
Subjective Progress Note Date: 10/30/24 Principal diagnosis: Pneumonia, hyponatremia. This is a 69-year-old female patient who has a history of pulmonary embolism anticoagulated with Xarelto, multiple sclerosis with chronic dysphagia, chronic pain syndrome with pain stimulator and morphine pump, spinal stenosis, fibro myalgia, seizure disorder, chronic tobacco dependence, chronic obstructive pulmonary disease. She had tested positive for COVID 10 days ago and was treated with Paxlovid. She has very limited mobility due to her MS. She presented here to the emergency room yesterday after sustaining a fall hitting her head on a table with loss of consciousness. CT scan of the brain and spine revealed no evidence of acute intracranial process. No evidence of fracture. Chest x-ray revealed cardiomegaly with pulmonary vascular congestion and bilateral pleural effusions. White count 5.2. Hemoglobin 12.3. Platelets 284. Sodium 130. Potassium 3.6. Bicarb 29. BUN 10. Creatinine 0.55. Glucose 107. COVID screen positive. She is seen today in consultation on the regular medical floor. She is currently sitting up in bed. Awake and alert in no acute distress. She is maintaining O2 saturations in the 90s on 4 L/min per nasal cannula. She did have a temperature of 100.2. Blood pressure stable. The patient is seen today October 24, 2024 in follow-up on the regular medical floor. She is currently sitting up in bed. Awake and alert in no acute distress. Feeling better today compared to yesterday. She is maintaining good O2 saturations in the 90s on 4 L/min per nasal cannula. She is afebrile. Hemodynamically stable. Ultrasound of the chest ordered by medicine revealed 0 cm of pleural effusion bilaterally. White count 3.8. Hemoglobin 10.7. Platelets 296. Sodium 127. Potassium 3.6. Bicarb 30. BUN 9. Creatinine 0.56. Glucose 215. She is continued on Symbicort, albuterol, Spiriva. Continued on Decadron. NicoDerm patch in place. Anticoagulated with Xarelto. The patient is seen today October 25, 2024 in follow-up on the regular medical floor. She is awake and alert in no acute distress. She is maintaining good O2 saturations in the 90s on 4 L/min per nasal cannula. Apparently earlier this morning she was found naked and without her oxygen on with O2 saturations in the 80s. She is oriented currently. She remains on Symbicort, Spiriva, albuterol, Decadron. NicoDerm patch in place. Anticoagulated with Xarelto. White count 6.1. Hemoglobin 11.1. Platelets 394. Sodium 130. Potassium 3.9. Bicarb 30. BUN 10. Creatinine 0.57. Glucose 92. AST 55. ALT 47. The patient is seen today October 26, 2024 in follow-up on the regular medical floor. She is currently sitting up in a chair at the bedside. Awake and alert in no acute distress. She denies any worsening shortness of breath, cough or congestion. She is still having some issues with confusion. When she takes her oxygen off she desaturates quite a bit. She is again educated regarding the importance of consistently wearing her oxygen. She is currently maintaining O2 saturations in the 90s on 4 L/min per nasal cannula. She has been afebrile. Hemodynamically stable. She is maintained on Symbicort, Spiriva, albuterol, Decadron. Anticoagulated with Xarelto. NicoDerm patch in place. Patient was seen today on 10/27/2024, patient was evaluated on the fourth floor today, and she was noted to be in moderate respiratory distress, on a nonrebreather mask, and her ABG showed a pO2 of 68 pCO2 of 57 pH of 7.56, patient had a worsening chest x-ray showing worsening bilateral pneumonia/in filtrates, she had a elevated D-dimer, and ideally speaking would be to check for pulmonary embolism, however the patient is not in the shape to lay flat for CT angiogram of the chest not to mention the patient is already on Xarelto, and her venous Doppler is negative, there is no reason to send this lady down for CT angiogram of the chest. Will continue Xarelto, and will transfer the patient to the ICU for close monitoring. Shortly after she had arrived to the ICU, family changed her CODE STATUS to DNR CODE STATUS although was that her ex- was at the bedside, and made aware that the patient may require life support, he did not voice any concern about CODE STATUS. Again her chest x-ray is worse, her electrolytes are normal bicarb is 34 patient does have history of underlying COPD and probably some component of chronic hypercapnia. Procalcitonin level today was 0.1, hence I believe the findings on the chest x-ray are most likely findings related to COVID-19 pneumonia. Patient received Paxlovid initially for her initial infection. She is now empirically on Zosyn for potential aspiration as she was confused over the last couple of days and she may have aspirated. Progress note dated October 28, 2024. This is a 69-year-old female who was admitted on October 22, for pneumonia, and hyponatremia. She apparently came to the intensive care unit, for respiratory distress, on October 27. The patient is seen today in room 260. Currently, the patient is on Airvo, with settings of 50 L/min, and an FiO2 of 75%. The patient is getting saline at KVO. The patient continues on Zosyn, for a possible urinary tract infection versus pneumonia. The patient had a blood gas y , which showed a pO2 of 68, pCO2 of 37, pH of 7.56. The patient is a DO NOT RESUSCITATE patient. Current labs include a white count 4.4, hemoglobin 11.6, hematocrit 38.5, and a platelet count of 447,000. Sodium 134, potassium 3.7, chloride 92, CO2 38, BUN 12, creatinine 0.52. Glucose is 119. Calcium is 9. Magnesium is 1.9. Procalcitonin level is 0.10. Urine is revealing gram-negative bacilli. Chest x-ray shows persistent bilateral multifocal opacities, consistent with acute infiltrates/pneumonitis. Progress note dated October 29, 2024. 69-year-old female who was admitted on October 22, for pneumonia, and hyponatremia. She came to the intensive care unit, for respiratory distress, on October 27, 2024. The patient is seen today in room 260. Currently, she is on Airvo, with settings of 50 L/min, and an FiO2 of 65%. She is getting saline at 10 cc an hour. She is sitting in a chair next to the hospital bed. She is awake and alert. In no distress. She states that she does feel better. Current laboratory data includes a white count 6.8, hemoglobin 12.4, hematocrit 40.6, and a platelet count of 463,000. Sodium 133, potassium 4.3, chloride 92, CO2 39, BUN 18, creatinine 0.64. Calcium is 9.3. Magnesium is 2.1. Urine culture from October 27, was positive for Escherichia coli. Chest x-ray continues to show bilateral infiltrates. The patient continues on Zosyn. Progress note dated October 30, 2024. 69-year-old female who was admitted on October 22, for pneumonia, and hyponatremia. The patient came to the intensive care unit, on October 27, for respiratory distress. The patient is seen today in room 260. Currently, the patient is on Airvo, at 60 L/min, and an FiO2 of 78%. She is getting saline at 10 cc an hour. Urinary culture showed evidence of Escherichia coli, and she is on Zosyn. The E. coli is sensitive to Zosyn. The patient has been quite agitated and restless, and is getting Ativan, Dilaudid, and Seroquel, all of which was started today by myself. Current laboratory data includes a white count of 7.3, hemoglobin 12.9, hematocrit 41.4, and a normal platelet count. Sodium 138, potassium 4.3, chloride 96, CO2 37, BUN 16, creatinine 0.6. Glucose is 110. Calcium 9.1. Anion gap is normal. Chest x-ray shows persistent bilat eral multifocal opacities. Objective - Vital Signs Vital signs: Vital Signs Temp 98.2 F 10/30/24 10:00 Pulse 71 10/30/24 12:00 Resp 19 10/30/24 12:00 BP 123/80 10/30/24 12:00 Pulse Ox 95 10/30/24 12:00 FiO2 70 10/30/24 10:00 Intake & Output 10/29/24 10/30/24 10/30/24 18:59 06:59 18:59 Intake Total 1150 310 50 Output Total 845 915 305 Balance 305 -605 -255 Weight 84.8 kg Intake: IV 170 310 50 Piperacillin-Tazobactam 3 100 200 .375 gm In Sodium Chloride 0.9% 100 ml @ 25 mls/hr IVPB Q8H [facility] Rx#: [id number] kvo 70 110 50 Oral 490 Tube Feeding 490 Output: Urine 845 915 305 Other: Voiding Method Indwelling Catheter Indwelling Catheter Indwelling Catheter - Exam No acute distress, somnolent, currently on Airvo. HEENT examination is grossly unremarkable. Mucous membranes are moist. No oral lesions. Neck supple. Full range of motion. No adenopathy thyromegaly or neck vein distention. Cardiovascular examination reveals regular rhythm rate. S1-S2 normal. No S3 or S4. No discernible murmur noted. Lungs reveal bibasilar crackles. Breath sounds are equal bilaterally. No wheezes. No rhonchi. Abdomen soft bowel sounds are heard. No masses or tenderness. Extremities are intact. No cyanosis or clubbing. Trace lower extremity edema. Skin is without rash or lesion. Neurologic examination is brief but nonfocal. - Labs CBC & Chem 7: 10/30/24 06:30 10/30/24 06:30 Labs: Abnormal Lab Results - Last 24 Hours (Table) 10/30/24 10/30/24 Range/Units 06: 06:30 MCV 76.8 L (80.0-100.0) fL MCH 23.9 L (25.0-35.0) pg RDW 22.9 H (11.5-15.5) % Lymphocytes # 0.9 L (1.0-4.8) k/uL Chloride 96 L (98-107) mmol/L Carbon Dioxide 37 H (22-30) mmol/L Glucose 110 H (74-99) mg/dL Microbiology - Last 24 Hours (Table) 10/28/24 10:09 Blood Culture - Preliminary Blood 10/27/24 01:00 Urine Culture - Final Urine,Voided Escherichia coli Assessment and Plan Assessment: Acute hypoxemic respiratory failure secondary to acute COVID-19 pneumonia and acute exacerbation of COPD. Severe COPD, with chronic and ongoing tobacco dependence, for more than 50 years. Gram-negative bacillary urinary tract infection, secondary to Escherichia coli. History of multiple sclerosis. Possible aspiration pneumonia. History of pulmonary embolism. History of spinal stenosis. History of chronic pain syndrome, status post implantation of a spinal cord stimulator. History of fall at home, with negative brain CT. Plan: Plan dated October 28, 2024. The patient is seen today in room 260. She was admitted on October 22, 2024, for pneumonia, and hyponatremia. The patient came to the intensive care unit, on the . She is currently on Airvo, with settings of 50 L/min, and FiO2 of 75%. Blood gases yesterday showed a pO2 of 68, pCO2 of 37, pH is 7.56. Patient is getting saline at KVO. She continues on Zosyn. Urine does reveal evidence of gram-negative bacilli, even though the procalcitonin level is normal. Labs, x-rays, and all medications are reviewed. The patient's overall prognosis is guarded. 45 minutes was spent with this patient, including interview, examination, review of labs x-rays, etc., as well as discussing the diagnosis, treatments, and prognosis, as well as discussing the plan of care, with the patient, respiratory therapist, nurses, etc. Plan dated October 29, 2024. The patient is seen today in room 260. She is sitting in a chair next to the hospital bed. She is currently on Airvo. Her urinary cultures, show evidence of Escherichia coli. She continues on Zosyn. All labs, x-rays, medications are reviewed. We will continue to follow the patient, make recommendations along the way. 50 minutes was spent with this patient, including interviewing the patient, examining her, reviewing labs, x-rays, medications, as well as discussing the diagnosis, treatment, prognosis, with her bedside nurse, pharmacy, respiratory therapy, and dietary. Prognosis is guarded. The patient is a no code. Plan dated October 30, 2024. The patient is seen today in the intensive care unit, room 260. The patient is currently on Airvo, with settings of 60 L/min, and an FiO2 of 78%. The patient is getting saline at 10 cc an hour. She continues on Zosyn for a E. coli urinary tract infection. The patient is quite agitated. We have added Ativan, Dilaudid, and Seroquel, 50 mg 3 times a day. All labs, x-rays, and medications are reviewed. 50 minutes was spent with this patient, including interviewing the patient, examining her, reviewing pertinent labs, x-rays, medications, as well as discussing the diagnosis, treatment, and prognosis, with the bedside nurse, pharmacy, respiratory therapy, and dietary. The patient's overall prognosis remains very poor. She is a DO NOT RESUSCITATE patient. Some consideration has been given to comfort care. Time with Patient: Greater than 30
[2024-10-30] MEDS: HYDROmorphone 0.5 MG/0.5 ML SYRINGE IVP PRN (12:51)
[2024-10-30 13:32] VITALS: BP 122/76
--- NOTE | 2024-10-30 14:13 | P.PN ---
Subjective Progress Note Date: 10/30/24 Subjective: Patient seen and examined at bedside. She is more more restless, pulling on her Airvo. Pertinent positives and negatives as discussed above, a complete review of systems was performed and all other systems are negative. Vitals Signs Reviewed. General: In acute respiratory distress, very somnolent Derm: Warm, dry Head: Atraumatic, normocephalic, symmetric Eyes: EOMI, no lid lag, anicteric sclera Mouth: No lip lesion, mucus membranes moist Cardiovascular: S1S2 reg, tachycardic, no murmur Lungs: Bilateral rales, no accessory muscle use, supplemental oxygen Abdominal: Soft, nontender to palpation, no guarding, no appreciable organomegaly Ext: No gross muscle atrophy, no edema, no contractures Neuro: CN II-XI grossly intact, no focal neuro deficits Psych: Oriented to self, appropriate affect Data Reviewed Today: Pertinent Labs: WBC 7.3, hemoglobin 12.9, platelet 414, sodium 138, bicarb 37, creatinine 0.6 Imaging: Chest x-ray independently interpreted, shows bilateral interstitial opacities unchanged from prior Assessment and Plan: Active: #. Acute hypoxic respiratory failure secondary to COVID pneumonia #Acute COPD exacerbation #. Pulmonary edema #. Bilateral pleural effusion #. Suspected aspiration pneumonia #. Acute delirium/metabolic encephalopathy -Patient was maintained on IV Decadron 6 mg daily -On DuoNeb 4 times daily, Symbicort twice daily -Pulmonology note reviewed -After further discussion with family, hospice was consulted. Patient electing for comfort care measures only -Currently on morphine 4 mg IV every 2 hours as needed, Dilaudid 0.5 IV every 6 hours as needed, Ativan 0.5 IV every 6 hours as needed -Pending further recommendations from hospice, will likely switch to IV morphine drip #Complicated UTI #Hyponatremia, resolved #Hypomagnesemia, resolved #Transaminitis #History of PE #Multiple sclerosis #Nicotine dependence #Restless leg syndrome #GERD #Chronic narcotic use on morphine pump DVT ppx: Not applicable Code status: DNR/DNI Anticipated discharge place: Patient expected to pass during this admission Anticipated discharge time: Pending clinical course Objective - Vital Signs Vital signs: Vital Signs Temp 98.2 F 10/30/24 10:00 Pulse 71 10/30/24 13:00 Resp 12 10/30/24 13:00 BP 122/76 02/12/25 13:00 Pulse Ox 96 10/30/24 13:00 FiO2 72 10/30/24 12:53 Intake & Output 10/29/24 10/30/24 10/30/24 18:59 06:59 18:59 Intake Total 1150 310 50 Output Total 845 915 305 Balance 305 -605 -255 Weight 84.8 kg Intake: IV 170 310 50 Piperacillin-Tazobactam 3 100 200 .375 gm In Sodium Chloride 0.9% 100 ml @ 25 mls/hr IVPB Q8H [facility] Rx#: [id number] kvo 70 110 50 Oral 490 Tube Feeding 490 Output: Urine 845 915 305 Other: Voiding Method Indwelling Catheter Indwelling Catheter Indwelling Catheter - Labs CBC & Chem 7: 10/30/24 06:30 10/30/24 06:30 Labs: Abnormal Lab Results - Last 24 Hours (Table) 10/30/24 10/30/24 Range/Units 06:30 06:30 MCV 76.8 L (80.0-100.0) fL MCH 23.9 L (25.0-35.0) pg RDW 22.9 H (11.5-15.5) % Lymphocytes # 0.9 L (1.0-4.8) k/uL Chloride 96 L (98-107) mmol/L Carbon Dioxide 37 H (22-30) mmol/L Glucose 110 H (74-99) mg/dL Microbiology - Last 24 Hours (Table) 10/28/24 10:09 Blood Culture - Preliminary Blood 10/27/24 01:00 Urine Culture - Final Urine,Voided Escherichia coli
[2024-10-30 14:20] VITALS: PULSE 67; RESP 35
--- NOTE | 2024-10-30 17:13 | P.DS ---
Providers Date of admission: 10/22/24 16:36 Expected date of discharge: 10/30/24 Attending physician: Stan Mills Consults: 10/23/24 10:00 Consult Physician Routine Consulting Provider: Ashlee Melton Consult Reason/Comments: COVID PNA, consider remdesivir Do you want consulting provider notified?: Yes Primary care physician: Jcarlos Peña MD Hospital Course: Patient being admitted to [facility] hospice. Plan - Discharge Summary Discharge Rx Participant: No New Discharge Prescriptions: No Action Fenofibrate,Micronized [Fenofibrate] 134 mg PO DAILY Dalfampridine [Dalfampridine ER] 10 mg PO Q12H Rivaroxaban [Xarelto] 20 mg PO DAILY Patient Own Pump 0 bag Albuterol Inhaler [Ventolin Hfa Inhaler] 1 puff INHALATION RT-Q4H PRN PRN Reason: Shortness Of Breath Or Cough Butalb/APAP/Caff 50-325-40Mg [Fioricet 50-325-40] 1 tab PO Q8H PRN PRN Reason: Migraine Headache Amitriptyline HCl [Elavil] 25 mg PO HS Fluticasone Nasal Quin[place] [Flonase Nasal Quin[place]] 1 spr EA NOSTRIL BID PRN PRN Reason: Allergy Symptoms Multivit-Min/Iron/Folic/Lutein [Centrum Silver Women Tablet] 1 tab PO DAILY Ondansetron Odt [Zofran Odt] 4 mg PO Q8H PRN PRN Reason: Nausea Ibuprofen [Motrin Ib] 200 - 400 mg PO Q6H PRN PRN Reason: Pain Or Fever > 100.5 guaiFENesin [guaiFENesin Oral Solution] 400 mg PO Q4H PRN PRN Reason: Cough Furosemide [Lasix] 20 mg PO TID traMADol HCL 50 mg PO BID PRN PRN Reason: Pain rOPINIRole HCL 4 mg PO BID Esomeprazole Magnesium [NexIUM] 40 mg PO BID Gabapentin 300 mg PO BID Ondansetron [Zofran] 4 mg PO DAILY Nicotine 21Mg/24Hr Patch [Habitrol] 1 patch TRANSDERM DAILY Ferrous Sulfate [Feosol] 325 mg PO DAILY Ammonium Lactate Lotion [Lac-Hydrin 12% Lotion] 1 applic TOPICAL DAILY Fluticasone/Umeclidin/Vilanter [Trelegy Ellipta 200-62.5-25] 1 puff INHALATION RT-DAILY Ascorbic Acid [Vitamin C] 500 mg PO DAILY SILVER sulfADIAZINE CREAM [Silvadene Cream] 1 applic TOPICAL DAILY PRN PRN Reason: WOUND CARE Cholecalciferol [Vitamin D3 (125 Mcg = 5000 Iu)] 125 mcg PO DAILY Discharge Medication List Dalfampridine [Dalfampridine ER] 10 mg PO Q12H 06/19/23 [History] Fenofibrate,Micronized [Fenofibrate] 134 mg PO DAILY 06/19/23 [History] Furosemide [Lasix] 20 mg PO TID 06/19/23 [History] Rivaroxaban [Xarelto] 20 mg PO DAILY 06/19/23 [History] Albuterol Inhaler [Ventolin Hfa Inhaler] 1 puff INHALATION RT-Q4H PRN 07/07/24 [History] Amitriptyline HCl [Elavil] 25 mg PO HS 07/07/24 [History] Butalb/APAP/Caff 50-325-40Mg [Fioricet 50-325-40] 1 tab PO Q8H PRN 07/07/24 [History] Esomeprazole Magnesium [NexIUM] 40 mg PO BID 07/07/24 [History] Gabapentin 300 mg PO BID 07/07/24 [History] Nicotine 21Mg/24Hr Patch [Habitrol] 1 patch TRANSDERM DAILY 07/07/24 [History] Ondansetron [Zofran] 4 mg PO DAILY 07/07/24 [History] Patient Own Pump 0 bag 07/07/24 [History] rOPINIRole HCL 4 mg PO BID 07/07/24 [History] traMADol HCL 50 mg PO BID PRN 07/07/24 [History] Ammonium Lactate Lotion [Lac-Hydrin 12% Lotion] 1 applic TOPICAL DAILY 10/16/24 [History] Ascorbic Acid [Vitamin C] 500 mg PO DAILY 10/16/24 [History] Cholecalciferol [Vitamin D3 (125 Mcg = 5000 Iu)] 125 mcg PO DAILY 10/16/24 [History] Ferrous Sulfate [Feosol] 325 mg PO DAILY 10/16/24 [History] Fluticasone Nasal Quinby [Flonase Nasal Quinby] 1 spr EA NOSTRIL BID PRN 10/16/24 [History] Fluticasone/Umeclidin/Vilanter [Trelegy Ellipta 200-62.5-25] 1 puff INHALATION RT-DAILY 10/16/24 [History] Ibuprofen [Motrin Ib] 200 - 400 mg PO Q6H PRN 10/16/24 [History] Multivit-Min/Iron/Folic/Lutein [Centrum Silver Women Tablet] 1 tab PO DAILY 10/16/24 [History] Ondansetron Odt [Zofran Odt] 4 mg PO Q8H PRN 10/16/24 [History] SILVER sulfADIAZINE CREAM [Silvadene Cream] 1 applic TOPICAL DAILY PRN 10/16/24 [History] guaiFENesin [guaiFENesin Oral Solution] 400 mg PO Q4H PRN 10/16/24 [History] Follow up Appointment(s)/Referral(s): Jcarlos Peña MD [Primary Care Provider] - 1-2 days Discharge [facility]
== END 2024-10-30 15:34 | disposition hospice, inpatient (51) | DRG 177 ==
LOC: EC 14:02 → 5NMEDONC 16:36 → 4SSUR 10-23 02:56 → 2SICU 10-27 11:13
PROVIDERS: ADMIT Student in an Organized Health Care Education/Training Program; ATTEND Student in an Organized Health Care Education/Training Program
PROC: 8E0ZXY6 Isolation (ICD-10-PCS; principal; 2024-10-22)
DX: U07.1 COVID-19 (principal); G93.41 Metabolic encephalopathy; J12.82 Pneumonia due to coronavirus disease 2019; J96.01 Acute respiratory failure with hypoxia; J69.0 Pneumonitis due to inhalation of food and vomit; Z51.5 Encounter for palliative care; J90 Pleural effusion, not elsewhere classified; J44.1 Chronic obstructive pulmonary disease with (acute) exacerbation; F11.20 Opioid dependence, uncomplicated; G40.909 Epilepsy, unspecified, not intractable, without status epilepticus; F32.A Depression, unspecified; G25.81 Restless legs syndrome; J44.0 Chronic obstructive pulmonary disease with (acute) lower respiratory infection; E87.1 Hypo-osmolality and hyponatremia; N39.0 Urinary tract infection, site not specified; G35 Multiple sclerosis; Z66 Do not resuscitate; M79.7 Fibromyalgia; K21.9 Gastro-esophageal reflux disease without esophagitis; R79.1 Abnormal coagulation profile; G89.4 Chronic pain syndrome; G47.30 Sleep apnea, unspecified; F17.210 Nicotine dependence, cigarettes, uncomplicated; M48.00 Spinal stenosis, site unspecified; E83.42 Hypomagnesemia; R45.1 Restlessness and agitation; B96.20 Unspecified Escherichia coli [E. coli] as the cause of diseases classified elsewhere; E86.1 Hypovolemia; R74.01 Elevation of levels of liver transaminase levels; Z91.81 History of falling; Z86.711 Personal history of pulmonary embolism; Z79.899 Other long term (current) drug therapy; Z79.01 Long term (current) use of anticoagulants
CPT/HCPCS: 36415; 36600; 70450; 71045; 72125; 76604; 80048; 80053; 81001; 82533; 82803; 82805; 83735; 83880; 83930; 83935; 84145; 84300; 84443; 85025; 85379; 87040; 87077; 87086; 87186; 87636; 93306; 93970; 94640; 94760; 96360; 99285